=== PATIENT | male | born 1970 | race Caucasian/White ===

== ENCOUNTER 2016-08-08 16:25 | Observation (INO) | payer OTHER ==
[2016-08-08] MEDS ORDERED: SODIUM CHLORIDE 0.9% 1,000 ML IV STA (17:56)
[2016-08-08 18:09] LABS: Basophils # (A) 0.1 k/uL (0-0.2); Basophils % (A) 1 %; CH 30.9; Eosinophils # (A) 0.2 k/uL (0-0.7); Eosinophils % (A) 2 %; HGB 16.4 gm/dL (13.0-17.5); Luc % (Auto) 3; Lymphocytes % (A) 33 %; MCH 30.5 pg (25.0-35.0); MCHC 33.4 g/dL (31.0-37.0); MCV 91.3 fL (80.0-100.0); Monocytes # (A) 0.5 k/uL (0-1.0); Monocytes % (A) 6 %; Neutrophils # (A) 5.1 k/uL (1.3-7.7); Neutrophils % (A) 56 %; RBC 5.36 m/uL (4.30-5.90); RDW 14.1 % (11.5-15.5); WBC 9.2 k/uL (3.8-10.6); WBC (Perox) 9.39
[2016-08-08] MEDS ORDERED: PANTOPRAZOLE 40 MG/10 ML VIAL IVP STA (18:16)
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
[2016-08-08 18:21] LABS: INR 0.9 (<1.1); Partial Thromboplastin Time 25.9 sec (22.0-30.0); Prothrombin Time 9.7 sec (9.0-12.0)
[2016-08-08 18:22] LABS: ALT 45 U/L (21-72); AST 21 U/L (17-59); Alkaline Phosphatase 69 U/L (38-126); Anion Gap 8 mmol/L; Blood Urea Nitrogen 17 mg/dL (9-20); Calcium 9.6 mg/dL (8.4-10.2); Carbon Dioxide 28 mmol/L (22-30); Chloride 104 mmol/L (98-107); Glucose 108 mg/dL (74-99); Non-African American GFR(MDRD) >60 (>60 ml/min/1.73 sqM); Potassium 4.3 mmol/L (3.5-5.1); Sodium 140 mmol/L (137-145); Total Bilirubin 0.4 mg/dL (0.2-1.3); Total Protein 8.2 g/dL (6.3-8.2)
[2016-08-08] MEDS ORDERED: ONDANSETRON 4 MG/2 ML VIAL IVP STA (18:31)
[2016-08-08] MEDS ORDERED: SODIUM CHLORIDE 0.9% 500 ML IV STA (18:31)
[2016-08-08] MEDS ORDERED: RX INFO: IV CONTRAST WAS GIVEN 1 EACH MISC MISCELLANE PRN (19:05)
[2016-08-08] MEDS ORDERED: IOHEXOL 350 MG/ML 25 ML BOTTLE (ORAL USE) PO PRN (19:05)
[2016-08-08] MEDS ORDERED: ACETAMINOPHEN TAB 325 MG TAB PO PRN (19:06)
[2016-08-08] MEDS ORDERED: SODIUM CHLORIDE 0.9% 1,000 ML IV ONE (19:06)
[2016-08-08] MEDS ORDERED: NALOXONE 0.4 MG/ML 1 ML VIAL IV PRN (19:06)
[2016-08-08] MEDS: HYDROmorphone 1 MG/ML 1 ML SYRINGE IV PRN ×2 (19:33→22:05)
[2016-08-08] MEDS: ONDANSETRON 4 MG/2 ML VIAL IVP PRN (19:33)
[2016-08-08] MEDS: levETIRAcetam 500 MG TAB PO SCH (22:04)
--- NOTE | 2016-08-08 22:23 | CT ---
EXAMINATION TYPE: CT abdomen pelvis w con DATE OF EXAM: 08/08/2016 9:11 PM COMPARISON: CT abdomen and pelvis dated 06/06/2016. HISTORY: Pt states of left-sided abdominal pain, nausea, and vomiting. CT DLP: 589.9 mGycm Automated exposure control for dose reduction was used. TECHNIQUE: Helical acquisition of images was performed from the lung bases through the pelvis. CONTRAST: Performed with Oral Contrast and with IV Contrast, patient injected with 100 mL of Omnipaque 300. FINDINGS: LUNG BASES: Right basilar subsegmental dependent atelectasis. LIVER/GB: No significant abnormality is appreciated. Gallbladder is contracted. PANCREAS: No significant abnormality is seen. SPLEEN: No significant abnormality is seen. ADRENALS: No significant abnormality is seen. KIDNEYS: There are 2 unchanged left lower pole nonobstructing renal calculi with the largest measurin g 17 mm. For punctate nonobstructing right renal calculi are seen the largest measuring 4 mm in the r ight lower pole. There is no evidence of hydronephrosis. Punctate calcification is again seen along t he penile urethra but unchanged from the exam of 06/06/2016. No urinary bladder calculi are present. No hydroureter. No perinephric fat stranding. RETROPERITONEAL ADENOPATHY: None visualized REPRODUCTIVE ORGANS: Prostate is again heterogenous and prominent in size measuring 4.7 cm in transve rse dimension. URINARY BLADDER: No significant abnormality is seen. PELVIC ADENOPATHY: Few prominent right lower quadrant lymph nodes are appreciated, which are nonspec ific. OSSEOUS STRUCTURES: No evidence of fracture or dislocation. Transitional-type vertebra at the lumbos acral junction is redemonstrated. BOWEL: Numerous sigmoid diverticula are seen with subtle and minimal pericolonic fat stranding and v asa recta engorgement within the low pelvis and comparison to the prior exam on series 3 image 70. Ad ditionally along the splenic flexure there is increase in size of an epiploic appendage on image 19 o f series 3 adjacent to the most inferior margin of the spleen. No surrounding inflammatory changes ar e seen of this epiploic appendage. OTHER: IMPRESSION: 1. NO EVIDENCE OF OBSTRUCTIVE UROPATHY. 2. MILD PERICOLONIC INFLAMMATORY CHANGES OF THE SIGMOID COLON WITH ENGORGEMENT OF THE VASA RECTA, LIK FRITZ RELATED TO EARLY UNCOMPLICATED SEGMENT DIVERTICULITIS IN THE SETTING OF LEFT LOWER QUADRANT ABDOM INAL PAIN, NAUSEA, VOMITING. NO ADJACENT ABSCESS OR EVIDENCE OF PERFORATION. 3. UNCHANGED MULTIPLE BILATERAL NONOBSTRUCTING RENAL CALCULI THE LARGEST ON THE LEFT MEASURING 17 MM AND THE LARGEST ON THE RIGHT MEASURING 4 MM.
--- NOTE | 2016-08-08 22:23 | XR ---
EXAMINATION TYPE: XR KUB DATE OF EXAM: 08/08/2016 6:37 PM COMPARISON: NONE HISTORY: Rectal bleeding and abdominal pain. TECHNIQUE: Upright and supine abdominal radiographs were obtained. FINDINGS: There is no evidence of pneumoperitoneum. Similar appearing bilateral renal calculi are see n, 2 on the left and one on the right measuring up to 12 mm on the left. There is a nonobstructive mazin wel gas pattern. Osseous structures are intact. No evidence of visceromegaly. IMPRESSION: 1. Nonobstructive bowel gas pattern. 2. Similar appearing bilateral renal calculi, 2 on the left and one on the right.
[2016-08-08 23:05] LABS: Appearance,Urine Clear (Clear); Bilirubin,Urine Negative (Negative); Glucose,Urine (UA) Negative (Negative); Ketones,Urine Negative (Negative); Leukocyte Esterase,Urine Negative (Negative); Mucus,Urine Rare /hpf; Nitrite,Urine Negative (Negative); PH, Urine 6.5 (5.0-8.0); Particle Count 467; Protein,Urine Negative (Negative); RBC,Urine 8 /hpf (0-5); Specific Gravity,Urine 1.035 (1.001-1.035); Squamous Epithelial Cell,Urine <1 /hpf (0-4); UA Billing (MACRO vs. MICRO) MICRO; Urobilinogen,Urine <2.0 mg/dL (<2.0); WBC,Urine 1 /hpf (0-5)
[2016-08-09] MEDS: HYDROmorphone 1 MG/ML 1 ML SYRINGE IV PRN ×6 (02:13→20:06)
[2016-08-09] MEDS ORDERED: PANTOPRAZOLE 40 MG/10 ML VIAL IVP SCH (09:00)
[2016-08-09] MEDS: ATORVASTATIN 20 MG TAB PO SCH (09:10)
[2016-08-09] MEDS: PANTOPRAZOLE 40 MG/10 ML VIAL IV SCH (09:10)
[2016-08-09] MEDS: levETIRAcetam 500 MG TAB PO SCH ×2 (09:10→21:26)
[2016-08-09 10:22] LABS: Basophils # (A) 0.1 k/uL (0-0.2); Basophils % (A) 1 %; CH 30.6; CHCM 33.2; Eosinophils # (A) 0.2 k/uL (0-0.7); Eosinophils % (A) 2 %; HCT 45.5 % (39.0-53.0); HGB 14.7 gm/dL (13.0-17.5); Luc # (Auto) 0.26; Luc % (Auto) 3; Lymphocytes # (A) 2.3 k/uL (1.0-4.8); Lymphocytes % (A) 27 %; MCH 29.8 pg (25.0-35.0); MCHC 32.2 g/dL (31.0-37.0); MCV 92.7 fL (80.0-100.0); Mean Platelet Volume 6.3; Monocytes # (A) 0.5 k/uL (0-1.0); Monocytes % (A) 6 %; Neutrophils # (A) 5.1 k/uL (1.3-7.7); Neutrophils % (A) 61 %; RBC 4.91 m/uL (4.30-5.90); RDW 14.2 % (11.5-15.5); WBC 8.3 k/uL (3.8-10.6); WBC (Perox) 9.06
[2016-08-09 10:48] LABS: ALT 31 U/L (21-72); AST 18 U/L (17-59); Alkaline Phosphatase 63 U/L (38-126); Anion Gap 8 mmol/L; Blood Urea Nitrogen 14 mg/dL (9-20); Calcium 8.9 mg/dL (8.4-10.2); Carbon Dioxide 23 mmol/L (22-30); Chloride 108 mmol/L (98-107); Glucose 81 mg/dL (74-99); Non-African American GFR(MDRD) >60 (>60 ml/min/1.73 sqM); Potassium 4.6 mmol/L (3.5-5.1); Sodium 139 mmol/L (137-145); Total Bilirubin 0.6 mg/dL (0.2-1.3)
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
[2016-08-09] MEDS ORDERED: BUTA/APAP/CAF/COD 50-325-40-30 CAP PO PRN (11:11)
[2016-08-09] MEDS ORDERED: BACLOFEN 10 MG TAB PO PRN (11:11)
[2016-08-09] MEDS ORDERED: IMITREX PO PRN (11:11)
[2016-08-09] MEDS: VERAPAMIL SR 120 MG TABLET.ER PO SCH (12:37)
[2016-08-09] MEDS: LOSARTAN 25 MG TAB PO SCH (12:37)
[2016-08-09] MEDS: traMADol 50 MG TAB PO PRN (12:42)
[2016-08-09] MEDS: oxyCODONE-APAP 7.5-325MG 1 EACH TAB PO PRN ×2 (12:42→21:26)
[2016-08-09] MEDS ORDERED: PEG 3350-NA SULF,BICARB,CL/KCL 4,000 ML BOTTLE PO ONE (15:00)
--- NOTE | 2016-08-09 19:32 | HP ---
DATE OF ADMISSION: 08/08/2016 DATE OF SERVICE: 08/09/2016 CHIEF COMPLAINT: Rectal bleeding. This is a 46-year-old white male who started having rectal bleeding for the past 8 to 10 days. Patient was having persistent bleeding and this was red and dark red in color. He denied any nausea or vomiting or hematemesis. Patient was brought to the emergency room, where he was evaluated extensively. Patient also had no nausea or abdominal pain. In the ER his CBC showed a WBC count of 9.2, hemoglobin 16.4 and platelet count 322,000. Sodium 140, potassium 4.3, BUN 17, creatinine 1.16. Blood sugar 108. The patient also had a CT of the abdomen which showed evidence of diverticulosis. Patient was admitted to the hospital for further evaluation and treatment. His past medical history reveals that the patient has a history of recurrent CVA with left hemiparesis. He also has a history of seizure disorder, gastroesophageal reflux disease, migraine headaches and BPH. He has NO KNOWN DRUG ALLERGIES. He used to smoke heavily. FAMILY HISTORY: Positive for arthritis and stroke. Patient's current medications include: 1. Cozaar 25 mg p.o. daily. 2. Verapamil 120 mg p.o. daily. 3. Aspirin 81 mg daily. 4. [place] 7.5/325 one q.8 hours p.r.n. 5. Keppra 1000 mg p.o. b.i.d. 6. Flomax 0.4 mg p.o. daily. 7. Plavix 75 mg p.o. daily. 8. Fioricet 1 daily p.r.n. 9. Baclofen 10 mg p.o. b.i.d. p.r.n. 10. Lipitor 20 mg p.o. daily. 11. Ultram 50 mg p.o. q.8 hours p.r.n. REVIEW OF SYSTEMS: Patient has migraine headaches. He denies any chest pain. He has no shortness of breath. He has no abdominal pain, but he has rectal bleeding. He has no polyuria or dysuria. He has no neurologic symptoms. Physical examination reveals a 46-year-old white male. He has left hemiparesis. He is alert and oriented. He is in no acute distress. There is no jaundice. There is no generalized lymphadenopathy. There are no petechiae or bruises. Pulse 80 per minute, regular. Blood pressure 147/86. EXAMINATION OF THE ENT: Negative. Neck is supple. There is no jugular venous distention. There is no goiter. There is no carotid bruit. Heart is in sinus rhythm. LUNGS: Diminished breath sounds at both bases. No rales or rhonchi. ABDOMEN: Soft, non-tender. No mass palpable. Examination of the lower extremities reveals no pitting edema. Neurological examination reveals left hemiparesis. IMPRESSION: 1. Gastrointestinal bleeding. 2. Hypertensive cardiovascular disease. 3. 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 4. Hypertensive cardiovascular disease. 5. History of nephrolithiasis. 6. Migraine headaches. PLAN: Patient will be admitted to hospital and we will place him back on his previous medications. We will monitor hemoglobin and hematocrit. Will also get a GI consultation. Dr. Ayala has scheduled him for upper and lower endoscopy tomorrow. Overall prognosis guarded. The diagnoses, prognosis and therapeutic plans were discussed in detail with the patient today.
[2016-08-09] MEDS: BUTA/APAP/CAF/COD 50-325-40-30 CAP PO PRN (21:26)
[2016-08-09] MEDS: TAMSULOSIN 0.4 MG CAP.ER.24H PO SCH (21:26)
[2016-08-10] MEDS: HYDROmorphone 1 MG/ML 1 ML SYRINGE IV PRN ×3 (00:44→23:10)
[2016-08-10] MEDS: ATORVASTATIN 20 MG TAB PO SCH (09:00)
[2016-08-10] MEDS: BUTA/APAP/CAF/COD 50-325-40-30 CAP PO PRN ×2 (10:42→19:06)
[2016-08-10] MEDS: levETIRAcetam 500 MG TAB PO SCH ×2 (10:42→21:59)
[2016-08-10] MEDS: PANTOPRAZOLE 40 MG/10 ML VIAL IV SCH (10:42)
[2016-08-10] MEDS: LOSARTAN 25 MG TAB PO SCH (10:42)
[2016-08-10] MEDS: oxyCODONE-APAP 7.5-325MG 1 EACH TAB PO PRN ×2 (10:43→19:06)
[2016-08-10] MEDS: VERAPAMIL SR 120 MG TABLET.ER PO SCH (10:43)
[2016-08-10] MEDS ORDERED: PROPOFOL 10 MG/ML 20 ML VIAL IV ONE (12:46)
[2016-08-10] MEDS ORDERED: IV FLUID CONTINUATION 950 ML IV ONE (12:52)
--- NOTE | 2016-08-10 13:12 | P.PCN ---
Date of Procedure: 08/10/16 Procedure(s) Performed: Brief history: Patient is a pleasant 46-year-old white male, scheduled for an elective upper endoscopy as well as colonoscopy as a part of evaluation of with the lower GI bleed. Patient has history of CVA in the past and has been on aspirin and Plavix which has been on hold. His hemoglobin is stable. Procedure performed: Esophagogastroduodenoscopy Colonoscopy Preoperative diagnosis: Acute GI bleed Anesthesia: MAC Procedure: After informed consent was obtained from the patient was brought into the endoscopy unit and IV conscious sedation was administered by anesthesia under continuous monitoring. Initially upper endoscopy was done. The Olympus GF 160 video endoscope was inserted inserted into the mouth and esophagus intubated without any difficulty and was gradually advanced into the stomach and duodenum and carefully examined. The bulb and second part of the duodenum appeared normal. The scope was then withdrawn into the stomach adequately insufflated with air and upon careful examination the antrum and body, cardia and fundus appeared normal. The scope was then withdrawn into the esophagus. The GE junction was located at 40 cm to the incisors. It appeared regular with no erythema erosions or ulcerations. Rest of the esophagus appeared normal. Patient tolerated the procedure well. At this time the patient continued to remain sedation. Initial digital rectal examination was normal. Olympus CF 160 video colonoscope was then inserted into the rectum and gradually advanced to the cecum without any difficulty. Careful examination was performed as the scope was gradually being withdrawn. The prep was excellent. The cecum, ascending colon, transverse colon, descending colon, sigmoid colon and rectum appeared normal. Scattered similar diverticulosis seen. Retroflexion was performed in the rectum and small internal hemorrhoids were noted. Patient tolerated the procedure well. Impression: 1. Upper endoscopy was within normal limits with no evidence of active upper GI bleed 2. Colonoscopy revealed scattered small diverticula cyst and small internal hemorrhoids but no active bleeding Recommendations: Findings of this examination were discussed with the patient as well as his family. It appears most likely her recent episode of lower GI bleed is from diverticular in nature which has spontaneously resolved. He'll be started on soft diet today
[2016-08-10 14:46] VITALS: RESP 20
[2016-08-10] MEDS: traMADol 50 MG TAB PO PRN (14:50)
--- NOTE | 2016-08-10 19:15 | PN ---
DATE OF SERVICE: 08/10/2016 This is a 46-year-old white male who was admitted through the emergency room with complaints of rectal bleeding. He had rectal bleeding for about a week. In the emergency room his CBC and hemoglobin were within normal limits. Patient was seen by Dr. Divina Ayala, and she scheduled him for upper and lower endoscopy. He had the endoscopies this morning. Apparently the upper endoscopy was normal. The lower endoscopy revealed some diverticulosis and apparently the bleeding might have been from the diverticulosis and also from internal hemorrhoids. Apparently the bleeding was spontaneously stopped and there was no evidence of any infection. Patient tolerated the procedure well. His vital signs were stable after the endoscopy. Dr. Ayala recommended to have him start on a soft diet. If the patient continues to be improve and is stable, he could be discharged home tomorrow.
[2016-08-10] MEDS ORDERED: INFLUENZA VACCINE (3YR+) 60 MCG/0.5 ML SYRINGE IM ONE (21:32)
[2016-08-10] MEDS: TAMSULOSIN 0.4 MG CAP.ER.24H PO SCH (21:59)
[2016-08-10 23:10] LABS: Glucose,Whole Blood 117 mg/dL (75-99)
[2016-08-10] MEDS: ONDANSETRON 4 MG/2 ML VIAL IVP PRN (23:11)
[2016-08-11] MEDS: BUTA/APAP/CAF/COD 50-325-40-30 CAP PO PRN (02:50)
[2016-08-11] MEDS: oxyCODONE-APAP 7.5-325MG 1 EACH TAB PO PRN ×2 (02:51→11:03)
[2016-08-11] MEDS: HYDROmorphone 1 MG/ML 1 ML SYRINGE IV PRN ×2 (04:59→08:12)
[2016-08-11 07:48] VITALS: BP 125/79; PULSE 63; TEMP 97
[2016-08-11] MEDS: levETIRAcetam 500 MG TAB PO SCH (08:03)
[2016-08-11] MEDS: VERAPAMIL SR 120 MG TABLET.ER PO SCH (08:03)
[2016-08-11] MEDS: LOSARTAN 25 MG TAB PO SCH (08:03)
[2016-08-11] MEDS: PANTOPRAZOLE 40 MG/10 ML VIAL IV SCH (08:04)
[2016-08-11] MEDS: ATORVASTATIN 20 MG TAB PO SCH (08:04)
[2016-08-11] MEDS: traMADol 50 MG TAB PO PRN (11:02)
--- NOTE | 2016-08-11 11:53 | P.PN ---
Subjective Principal diagnosis: Lower GI bleed 46-year-old male with a history diverticulosis admitted with lower GI bleed on dual antiplatelet therapy for history of CVA. Status post EGD colonoscopy yesterday with findings of diverticulosis without evidence of peptic ulcer disease. Feels well this morning. Tolerating liquid diet. No recurrence of bleeding. Objective - Vital Signs Vital signs: Vital Signs Temp 97.0 F L 08/11/16 07:00 Pulse 63 08/11/16 07:00 Resp 20 08/11/16 08:00 BP 125/79 08/11/16 07:00 Pulse Ox 98 08/11/16 07:00 Intake & Output 08/10/16 08/11/16 08/11/16 18:59 06:59 18:59 Intake Total 950 800 480 Balance 950 800 480 Intake: IV 150 Intake, IV Titration 800 Amount Sodium Chloride 0.9% 1, 800 000 ml @ 100 mls/hr IV . Q10H ONE Rx#:[id number] Oral 800 480 Other: # Voids 1 - Exam General appearance: The patient is alert, oriented, in no acute distress. HET: Head is normocephalic and atraumatic. Pupils are equal and reactive. Oropharynx is clear without lesions. Neck: Supple without lymphadenopathy. Trachea midline. Heart: S1 S2. Regular rate and rhythm. Lungs: No crackles or wheezes are heard. Abdomen: Soft, nontender, nondistended with bowel sounds. No peritoneal signs. No palpable organomegaly or masses. Extremities: Normal skin color and turgor. No cyanosis, rash, ulceration, clubbing, or edema. Radial and pedal pulses are 2/4 bilaterally. Neurological: No focal deficits. Strength and sensation are grossly intact. - Labs CBC & Chem 7: 08/09/16 09:50 08/09/16 09:50 Labs: Abnormal Lab Results - Last 24 Hours (Table) 08/10/16 Range/Units 23:04 POC Glucose (mg/dL) 117 H (75-99) mg/dL Assessment and Plan (1) GI bleed Narrative/Plan: 46-year-old male with a history of CVA on dual antiplatelet therapy admitted with painless maroon colored burgundy bowel movements for 10 days duration with radiographic abdominal imaging suggestive of numerous sigmoid diverticula possible early sigmoid diverticular colitis. Status post EGD with findings of diverticulosis without evidence of peptic ulcer disease. Lower GI bleed secondary to suspected diverticular bleed. Status: Acute Plan: Recommendations: 1. Restart aspirin Plavix per medicine. 2. Soft diet. 3. Discharge per medicine. We'll follow as needed. Assessment and plan of care discussed with Dr. Jacob
--- NOTE | 2016-09-11 09:06 | DS ---
DATE OF ADMISSION: 08/08/2016 DATE OF DISCHARGE: 08/11/2016 DISCHARGE DIAGNOSES: 1. Gastrointestinal bleeding possibly bleeding from diverticulosis or colon or internal hemorrhoid. 2. Hypertensive cardiovascular disease. 3. 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 4. Hypertensive cardiovascular disease. 5. History of nephrolithiasis. 6. Migraine headaches. This is a 46-year-old white male who started having rectal bleeding for the past 8 to 10 days. The patient was having persistent bleeding and this was red blood and also has some dark red blood in the stool. He denied any nausea, vomiting or hematemesis. In the emergency room, his CBC showed a WBC count of 9.2, hemoglobin 16.4, and platelet count 302,000. Sodium 140, potassium 4.3, BUN 17, creatinine 1.16. Blood sugar 108. The patient also had a CT scan of the abdomen which showed evidence of diverticulosis. The patient was admitted to the hospital for further evaluation and treatment. For details of the physical examination at the time of admission, please refer to the history and physical. HOSPITAL COURSE: Patient's CBC and electrolytes were monitored and patient was seen by Dr. Ayala in consultation. Patient had an upper endoscopy and also lower endoscopy and it there was no active bleeding, but the bleeding might have been from diverticular or hemorrhoid bleeding and the bleeding apparently has stopped. His hemoglobin remains stable. He became asymptomatic and the patient was discharged home on 08/11/2016 and patient was advised to continue on his previous medications and diet as tolerated. He will be followed by me in my office for medical follow-up in a week's time and he will also be followed by Dr. Ayala for his gastrointestinal problems.
== END 2016-08-11 14:02 | disposition home or self-care (01) ==
LOC: EC 16:25 → 4MS4W 19:06
PROVIDERS: ADMIT Internal Medicine; ATTEND Internal Medicine
DX: K92.2 Gastrointestinal hemorrhage, unspecified (principal); K64.8 Other hemorrhoids; R10.32 Left lower quadrant pain; E78.5 Hyperlipidemia, unspecified; G40.909 Epilepsy, unspecified, not intractable, without status epilepticus; G43.909 Migraine, unspecified, not intractable, without status migrainosus; I11.9 Hypertensive heart disease without heart failure; I69.354 Hemiplegia and hemiparesis following cerebral infarction affecting left non-dominant side; K21.9 Gastro-esophageal reflux disease without esophagitis; K57.90 Diverticulosis of intestine, part unspecified, without perforation or abscess without bleeding; N40.0 Benign prostatic hyperplasia without lower urinary tract symptoms; Z79.82 Long term (current) use of aspirin; Z87.442 Personal history of urinary calculi; Z87.891 Personal history of nicotine dependence; Z79.899 Other long term (current) drug therapy; Z79.02 Long term (current) use of antithrombotics/antiplatelets; Z90.81 Acquired absence of spleen
CPT/HCPCS: 99285 ×2; 96374 ×2; 96375 ×3; 96376 ×2; 96361 ×3; 36415; 80053 ×2; 85025 ×2; 85610; 85730; 82272; 81001; 74000; 74177; 45378; 43235; G0378 ×4; J2405 ×2; J1170 ×4; Q9967; J2704; C9113 ×4; 99153

== ENCOUNTER → 2016-10-28 | Outpatient (CLI) | payer OTHER ==
--- NOTE | 2016-10-28 08:15 | MR ---
EXAMINATION TYPE: MR lumbar spine wo con DATE OF EXAM: 10/28/2016 7:03 AM COMPARISON: Prior MRI lumbar spine May 26, 2015. HISTORY: lumbago per order. Severe low back pain into right leg for 1 month per patient. TECHNIQUE: Multiplanar, multisequence imaging of the lumbar spine is performed without IV contrast. FINDINGS: Will use same counting method as detailed on prior report. Sagittal images of the lumbar sp ine show vertebral body heights and alignment to appear satisfactory. There is redemonstration of dis c desiccation L5 L6 level and to lesser degree L6-S1 level. This space heights are fairly well-mainta ined. No large posterior disc herniations are seen on sagittal images. No significant change from tara or study is identified. The conus medullaris remains low in position ending at mid L2 vertebral body level. No suspicious signal or clumping of lumbosacral nerve roots is identified. The bone marrow s ignal intensity is within normal limits. Mild spurring near thoracolumbar junction is redemonstrated. Axial images beginning at the L1-L2 level redemonstrate mild broad disc bulge mildly effacing anterio r thecal sac, bilateral neural foramina are patent. There is similar stable mild broad disc bulge L2- L3 level mildly effacing anterior thecal sac, bilateral neural foramina remain patent. Axial images at the L3-L4 and L4-L5 levels show mild facet degenerative changes bilaterally. There is mild to moderate broad disc bulges mildly effacing the anterior thecal sac, there is persistent mild bilateral left greater than right anterior-inferior neural foraminal narrowing seen. Axial images at L5-L6 level show moderate facet degenerative changes bilaterally. There is redemonstr ation mild broad disc bulge with right lateral disc protrusion component. There is mild effacement of the anterior thecal sac. There is fairly moderate left-sided neural foraminal narrowing now seen on sagittal image 1. There is moderate to severe right-sided neural foraminal narrowing with encroachmen t along right L5 nerve seen on sagittal image 12. Axial images at L6 S1 level are felt within normal limits. IMPRESSION: Some multilevel degenerative changes in lumbar spine as detailed above, findings once aga in most prominent at labeled L5 L6 level as there is moderate to severe right greater than left neura l foraminal narrowing with suspected encroachment on the labeled right L6 nerve. Some progression in findings or neural foraminal narrowing on the left at this level is identified otherwise no significa nt change is seen from prior MRI.
== END ==
LOC: RADMRIMAIN 06:20
PROVIDERS: ATTEND Psychiatry & Neurology Neurology
DX: M99.73 Connective tissue and disc stenosis of intervertebral foramina of lumbar region (principal); M47.816 Spondylosis without myelopathy or radiculopathy, lumbar region
CPT/HCPCS: 72148

== ENCOUNTER 2016-11-20 11:41 | Emergency (ER) | payer OTHER ==
[2016-11-20] MEDS ORDERED: RX INFO: IV CONTRAST WAS GIVEN 1 EACH MISC MISCELLANE PRN (12:04)
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
[2016-11-20 12:19] LABS: Basophils # (A) 0.1 k/uL (0-0.2); Basophils % (A) 1 %; CH 31.5; CHCM 34.8; Eosinophils # (A) 0.1 k/uL (0-0.7); Eosinophils % (A) 1 %; HCT 46.5 % (39.0-53.0); HDW 2.51; HGB 15.8 gm/dL (13.0-17.5); Luc # (Auto) 0.32; Luc % (Auto) 3; Lymphocytes % (A) 29 %; MCHC 34.1 g/dL (31.0-37.0); MCV 90.9 fL (80.0-100.0); Mean Platelet Volume 6.3; Monocytes # (A) 0.7 k/uL (0-1.0); Monocytes % (A) 7 %; Neutrophils % (A) 59 %; RBC 5.11 m/uL (4.30-5.90); RDW 14.5 % (11.5-15.5); WBC 10.3 k/uL (3.8-10.6)
--- NOTE | 2016-11-20 12:24 | CT ---
EXAMINATION TYPE: CT brain wo con for TPA DATE OF EXAM: 11/20/2016 12:16 PM COMPARISON: 12/13/2015 HISTORY: cva, seizure CT DLP: 1108.4 mGycm Automated exposure control for dose reduction was used. FINDINGS: Ventricles have normal size. There is no mass effect nor midline shift. There is no sign of intracran ial hemorrhage. The calvarium is intact. IMPRESSION: Negative unenhanced head CT scan. No change.
[2016-11-20 12:29] LABS: ALT 32 U/L (21-72); AST 23 U/L (17-59); Alkaline Phosphatase 73 U/L (38-126); Anion Gap 13 mmol/L; Blood Urea Nitrogen 13 mg/dL (9-20); Calcium 10.2 mg/dL (8.4-10.2); Carbon Dioxide 23 mmol/L (22-30); Chloride 107 mmol/L (98-107); Glucose 116 mg/dL (74-99); Non-African American GFR(MDRD) >60 (>60 ml/min/1.73 sqM); Potassium 3.6 mmol/L (3.5-5.1); Sodium 143 mmol/L (137-145); Total Bilirubin 0.6 mg/dL (0.2-1.3); Total Protein 8.3 g/dL (6.3-8.2)
[2016-11-20] MEDS ORDERED: SODIUM CHLORIDE 0.9% 500 ML IV STA (12:30)
[2016-11-20] MEDS ORDERED: MORPHINE SULFATE 4 MG/ML SYRINGE IVP STA (12:30)
[2016-11-20] MEDS ORDERED: SODIUM CHLORIDE 0.9% 1,000 ML IV STA (12:30)
[2016-11-20 12:31] LABS: Prothrombin Time 10.1 sec (9.0-12.0)
[2016-11-20 12:39] LABS: Creatine Kinase 102 U/L (55-170)
[2016-11-20] MEDS ORDERED: tPA (Alteplase) PER PHARMACY 1 EACH MISC MISCELLANE PRN (12:43)
[2016-11-20] MEDS ORDERED: ALTEPLASE BOLUS IV STA (12:45)
[2016-11-20] MEDS ORDERED: ALTEPLASE 75 MG in EMPTY BAG 1 BAG IV STA (12:45)
[2016-11-20 12:46] LABS: Glucose,Whole Blood 145 mg/dL (75-99)
[2016-11-20 12:52] LABS: Creatine Kinase MB 1.8 ng/mL (0.0-2.4); Troponin I <0.012 ng/mL (0.000-0.034)
--- NOTE | 2016-11-20 13:14 | CT ---
EXAMINATION TYPE: CT angio head neck DATE OF EXAM: 11/20/2016 12:47 PM COMPARISON: NONE HISTORY: CVA CT DLP: 374.30 mGycm Automated exposure control for dose reduction was used. CONTRAST: Performed with IV Contrast, patient injected with 65 mL of Omnipaque 350. FINDINGS: There are 3-D post processed images. There is normal branching pattern of the great vessels. There is wide patency of the common internal and external carotid arteries bilaterally. There is patency of the vertebrobasilar artery system. There is arterial flow in the anterior middle and posterior cerebral arteries. There is no mass effect. There is no evidence of aneurysm or neovasc ularity. There is bilateral normal opacification of the vertebral arteries. I see no evidence of stenosis. The re is no evidence of dissection. There is normal contrast opacification of the venous sinuses. IMPRESSION: NORMAL CT ANGIOGRAM OF THE NECK. NORMAL CT ANGIOGRAM OF THE BRAIN.
[2016-11-20] MEDS ORDERED: HYDROmorphone 1 MG/ML 1 ML SYRINGE IVP STA (13:21)
[2016-11-20 13:41] VITALS: RESP 16
[2016-11-20 13:45] VITALS: BP 155/95; PULSE 85; TEMP 98.3
== END 2016-11-20 13:30 | disposition other institution (70) ==
LOC: EC 11:41
DX: I63.9 Cerebral infarction, unspecified (principal); I10 Essential (primary) hypertension; E78.5 Hyperlipidemia, unspecified; G40.909 Epilepsy, unspecified, not intractable, without status epilepticus; F41.9 Anxiety disorder, unspecified; Z87.891 Personal history of nicotine dependence; Z79.82 Long term (current) use of aspirin; Z79.01 Long term (current) use of anticoagulants; Z79.899 Other long term (current) drug therapy
CPT/HCPCS: 99291; 37195; 96374; 96375 ×2; 96361; 36415; 93005; 80053; 82550; 82553; 83735; 84484; 85025; 85610; 85730; 70496; 70450; 70498; J2997; J2270; Q9967; J1170

== ENCOUNTER 2017-02-13 16:16 | Emergency (ER) | payer OTHER ==
[2017-02-13] MEDS ORDERED: KETOROLAC 30 MG/ML 1 ML VIAL IVP STA (17:06)
[2017-02-13] MEDS ORDERED: HYDROmorphone 1 MG/ML 1 ML SYRINGE IVP STA ×2 (17:06→19:38)
[2017-02-13] MEDS ORDERED: SODIUM CHLORIDE 0.9% 1,000 ML IV STA (17:06)
[2017-02-13] MEDS ORDERED: ONDANSETRON 4 MG/2 ML VIAL IVP STA (17:07)
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
[2017-02-13 17:46] LABS: Basophils # (A) 0.1 k/uL (0-0.2); Basophils % (A) 1 %; CH 31.8; CHCM 34.5; Eosinophils # (A) 0.3 k/uL (0-0.7); Eosinophils % (A) 3 %; HCT 47.8 % (39.0-53.0); HDW 2.67; HGB 15.8 gm/dL (13.0-17.5); Luc # (Auto) 0.28; Luc % (Auto) 3; Lymphocytes # (A) 3.6 k/uL (1.0-4.8); Lymphocytes % (A) 36 %; MCH 30.7 pg (25.0-35.0); MCHC 33.1 g/dL (31.0-37.0); MCV 92.7 fL (80.0-100.0); Mean Platelet Volume 7.2; Monocytes # (A) 0.7 k/uL (0-1.0); Monocytes % (A) 7 %; Neutrophils # (A) 5.2 k/uL (1.3-7.7); Neutrophils % (A) 52 %; RBC 5.16 m/uL (4.30-5.90); RDW 14.8 % (11.5-15.5); WBC (Perox) 9.78
[2017-02-13 17:57] LABS: ALT 36 U/L (21-72); AST 20 U/L (17-59); Alkaline Phosphatase 54 U/L (38-126); Amylase 61 U/L (30-110); Anion Gap 11 mmol/L; Blood Urea Nitrogen 17 mg/dL (9-20); Calcium 9.9 mg/dL (8.4-10.2); Carbon Dioxide 22 mmol/L (22-30); Chloride 107 mmol/L (98-107); Glucose 90 mg/dL (74-99); Non-African American GFR(MDRD) >60 (>60 ml/min/1.73 sqM); Potassium 4.2 mmol/L (3.5-5.1); Sodium 140 mmol/L (137-145); Total Bilirubin 0.3 mg/dL (0.2-1.3); Total Protein 7.8 g/dL (6.3-8.2)
[2017-02-13] MEDS ORDERED: SODIUM CHLORIDE 0.9% 1,000 ML IV SCH (18:00)
--- NOTE | 2017-02-13 18:13 | CT ---
EXAMINATION TYPE: CT abdomen pelvis wo con DATE OF EXAM: 02/13/2017 COMPARISON: NONE HISTORY: Left flank pain, history of stones. CT DLP: 2041.00 mGycm Automated exposure control for dose reduction was used. TECHNIQUE: Helical acquisition of images was performed from the lung bases through the pelvis. FINDINGS: Evaluation of the solid and hollow viscera is limited secondary lack of intravenous and ora l contrast. LUNG BASES: A small amount of intrafissural fluid is seen on the right.. LIVER/GB: No significant abnormality is appreciated. PANCREAS: No significant abnormality is seen. SPLEEN: The spleen is rounded in morphology and may relate to splenosis from prior injury. ADRENALS: No significant abnormality is seen. KIDNEYS: There is bilateral nephrolithiasis. 5 nonobstructing renal calculi are seen on the right wit h the largest in the inferior pole measuring 4 mm. 3 nonobstructing left renal calculi are present wi th the largest also in the inferior pole measuring 1.5 cm. FREE AIR: No free air is visualized RETROPERITONEAL ADENOPATHY: None visualized REPRODUCTIVE ORGANS: Again the prostate gland is heterogenous and prominent in size. URINARY BLADDER: Urinary bladder hall are circumferentially thickened and may relate to incomplete distention. Correlate with urinalysis.. PELVIC ADENOPATHY: None visualized. OSSEOUS STRUCTURES: No significant abnormality is seen. Transitional-type vertebrae in the lumbosacr al junction is again seen. No evidence BOWEL: Sigmoid diverticulosis without pericolonic fat stranding is noted. No evidence of bowel thick ening or obstructive process. IMPRESSION: BILATERAL NONOBSTRUCTING RENAL CALCULI. CIRCUMFERENTIAL URINARY BLADDER WALL THICKENING MAY RELATE TO INCOMPLETE DISTENTION ALTHOUGH CORRELATION WITH URINALYSIS IS RECOMMENDED.
[2017-02-13 18:34] LABS: Appearance,Urine Clear (Clear); Bacteria,Urine Rare /hpf; Bilirubin,Urine Negative (Negative); Glucose,Urine (UA) Negative (Negative); Ketones,Urine Negative (Negative); Leukocyte Esterase,Urine Negative (Negative); Mucus,Urine Rare /hpf; Nitrite,Urine Negative (Negative); Particle Count 706; Protein,Urine Negative (Negative); RBC,Urine 9 /hpf (0-5); Specific Gravity,Urine 1.017 (1.001-1.035); UA Billing (MACRO vs. MICRO) MICRO; Urobilinogen,Urine <2.0 mg/dL (<2.0); WBC,Urine 1 /hpf (0-5)
[2017-02-13] MEDS ORDERED: DIAZEPAM 5 MG/ML 2 ML SYRINGE IVP STA (19:02)
[2017-02-13 19:04] VITALS: TEMP 97.8
[2017-02-13] MEDS ORDERED: LABETALOL 5 MG/ML VIAL MDV IVP STA (19:06)
--- NOTE | 2017-02-13 20:12 | US ---
EXAMINATION TYPE: US abdomen limited DATE OF EXAM: 02/13/2017 COMPARISON: CT abdomen pelvis dated 02/13/2017. CLINICAL HISTORY: Pain. Left sided pain x 1.5 weeks. History of kidney stones EXAM MEASUREMENTS: Spleen: unable to identify normal appearing spleen, round hypoechoic area noted within area of splee n = 5.3 x 4.6 x 5.2cm this corresponds to the CT finding of a rounded splenic morphology that may rel ate to splenosis from prior injury or may be congenital in nature. Left Kidney: dense echogenic areas (stones) noted, largest at lower pole = 1.4cm IMPRESSION: Nephrolithiasis of the left kidney, better demonstrated on the CT abdomen pelvis of the , with no evidence of hydronephrosis.
[2017-02-13] MEDS ORDERED: HYDROmorphone 1 MG/ML 1 ML SYRINGE IV PRN (21:17)
[2017-02-13] MEDS ORDERED: ONDANSETRON 4 MG/2 ML VIAL IVP PRN (21:17)
[2017-02-13] MEDS ORDERED: NALOXONE 0.4 MG/ML 1 ML VIAL IV PRN (21:17)
[2017-02-13] MEDS ORDERED: KETOROLAC 30 MG/ML 1 ML VIAL IVP PRN (21:17)
[2017-02-13] MEDS ORDERED: RX INFO: IV CONTRAST WAS GIVEN 1 EACH MISC MISCELLANE PRN (21:25)
[2017-02-13 21:58] VITALS: BP 163/115; PULSE 68; RESP 18
--- NOTE | 2017-02-13 22:48 | CT ---
EXAM: CT Abdomen and Pelvis With Intravenous Contrast CLINICAL HISTORY: Reason: Pain TECHNIQUE: Axial computed tomography images of the abdomen and pelvis with intravenous contrast. CTDI is 34.42 MGy and DLP is 1545 mGy-cm. This CT exam was performed using one or more of the following dose reduction techniques: automated exposure control, adjustment of the mA and/or kV according to patient size, and/or use of iterative reconstruction technique. Coronal and sagittal reconstructions are performed COMPARISON: Nonenhanced CT abdomen and pelvis from today FINDINGS: Lower thorax: No acute findings. ABDOMEN: Liver: Unremarkable. No mass. Gallbladder and bile ducts: Unremarkable. No calcified stones. No ductal dilation. Pancreas: Unremarkable. No mass. No ductal dilation. Spleen: Unremarkable. No splenomegaly. Adrenals: Unremarkable. No mass. Kidneys and ureters: Bilateral nonobstructing renal stones. The largest in the left kidney measures about 7 x 14 mm. The largest in the right kidney measures about 8 mm. Stomach and bowel: Unremarkable. No obstruction. No mucosal thickening. Appendix: Normal appendix PELVIS: Bladder: Urinary bladder is better distended with no significant wall thickening. Reproductive: Unremarkable as visualized. ABDOMEN and PELVIS: Intraperitoneal space: Unremarkable. No free air. No significant fluid collection. Bones/joints: No acute fracture. No dislocation. Soft tissues: Unremarkable. Vasculature: Unremarkable. No abdominal aortic aneurysm. Lymph nodes: Unremarkable. No enlarged lymph nodes. IMPRESSION: Bilateral nonobstructing renal stones
== END 2017-02-13 23:10 | disposition home or self-care (01) ==
LOC: EC 16:16
DX: N20.0 Calculus of kidney (principal); G40.909 Epilepsy, unspecified, not intractable, without status epilepticus; I10 Essential (primary) hypertension; E78.5 Hyperlipidemia, unspecified; Z86.73 Personal history of transient ischemic attack (TIA), and cerebral infarction without residual deficits; Z87.891 Personal history of nicotine dependence; Z79.01 Long term (current) use of anticoagulants; Z79.899 Other long term (current) drug therapy
CPT/HCPCS: 36415; 80053; 82150; 83690; 85025; 81001; 76705; 74176; 74177; 99284; 96374; 96375 ×3; 96376 ×2; 96361 ×5; J3360; J2405; J1885; J1170; Q9967

== ENCOUNTER → 2017-07-11 | Outpatient (CLI) | payer OTHER ==
--- NOTE | 2017-07-11 11:32 | XR ---
EXAMINATION TYPE: XR chest 2V DATE OF EXAM: 07/11/2017 COMPARISON: 10/30/2015 HISTORY: Chronic fatigue TECHNIQUE: Frontal and lateral views of the chest are obtained. FINDINGS: There is no focal air space opacity, pleural effusion, or pneumothorax seen. Cardiac loop recorder is incidentally noted. The cardiac silhouette size is within normal limits. The osseous st ructures are intact. Mild degenerative changes of the thoracic spine and acromioclavicular joints are seen. There is a possible 4 mm pulmonary nodule within the superior segment of the right lower lobe versus pulmonary vessel en face. IMPRESSION: 1. Possible right superior segment lower lobe pulmonary nodule versus pulmonary vessel en face. CT th orax is recommended for further evaluation. 2. No acute cardiopulmonary process.
[2017-07-11 11:45] LABS: HCT 47.8 % (39.0-53.0); HGB 15.5 gm/dL (13.0-17.5); MCH 30.3 pg (25.0-35.0); MCHC 32.3 g/dL (31.0-37.0); MCV 93.7 fL (80.0-100.0); Mean Platelet Volume 6.4; Platelet Count 401 k/uL (150-450); RDW 14.1 % (11.5-15.5); WBC 7.8 k/uL (3.8-10.6)
[2017-07-11 11:56] LABS: ALT 56 U/L (21-72); AST 26 U/L (17-59); Albumin 4.5 g/dL (3.5-5.0); Alkaline Phosphatase 73 U/L (38-126); Anion Gap 13 mmol/L; Blood Urea Nitrogen 18 mg/dL (9-20); Calcium 10.1 mg/dL (8.4-10.2); Carbon Dioxide 24 mmol/L (22-30); Chloride 107 mmol/L (98-107); Cholesterol 201 mg/dL (<200); Glucose 85 mg/dL (74-99); HDL Cholesterol 50 mg/dL (40-60); LDL Cholesterol,Calculated 116 mg/dL (0-99); Potassium 4.2 mmol/L (3.5-5.1); Sodium 144 mmol/L (137-145); Total Bilirubin 0.3 mg/dL (0.2-1.3); Total Protein 8.2 g/dL (6.3-8.2); Triglycerides 175 mg/dL (<150)
[2017-07-11 12:11] LABS: T4, Free (Free Thyroxine) 1.25 ng/dL (0.78-2.19)
== END | disposition home or self-care (01) ==
LOC: RADXRMAIN 11:07
PROVIDERS: ATTEND Internal Medicine
DX: R53.82 Chronic fatigue, unspecified (principal); G40.909 Epilepsy, unspecified, not intractable, without status epilepticus; E78.2 Mixed hyperlipidemia
CPT/HCPCS: 36415; 71046; 80053; 80061; 84439; 84443; 85027

== ENCOUNTER 2017-07-12 17:01 | Emergency (ER) | payer OTHER ==
[2017-07-12] MEDS ORDERED: METOCLOPRAMIDE 5 MG/ML 2 ML VIAL IVP STA (17:44)
[2017-07-12] MEDS ORDERED: SODIUM CHLORIDE 0.9% 500 ML IV ONE (17:44)
[2017-07-12] MEDS ORDERED: HYDROmorphone 1 MG/ML 1 ML SYRINGE IVP STA (17:45)
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
[2017-07-12 23:34] VITALS: BP 133/86; PULSE 76; RESP 18; TEMP 97.6
== END 2017-07-12 18:54 | disposition home or self-care (01) ==
LOC: EC 17:01
DX: G43.509 Persistent migraine aura without cerebral infarction, not intractable, without status migrainosus (principal); E78.5 Hyperlipidemia, unspecified; I10 Essential (primary) hypertension; G40.909 Epilepsy, unspecified, not intractable, without status epilepticus; F41.9 Anxiety disorder, unspecified; Z87.891 Personal history of nicotine dependence; Z86.73 Personal history of transient ischemic attack (TIA), and cerebral infarction without residual deficits; Z79.02 Long term (current) use of antithrombotics/antiplatelets; Z79.899 Other long term (current) drug therapy
CPT/HCPCS: 99284; 96374; 96375; J2765; J1170

== ENCOUNTER → 2017-07-24 | Outpatient (CLI) | payer OTHER ==
--- NOTE | 2017-07-24 15:03 | CT ---
EXAMINATION TYPE: CT chest w con DATE OF EXAM: 07/24/2017 COMPARISON: NONE HISTORY: Nodule found on cxr. CT DLP: 288.6 mGycm Automated exposure control for dose reduction was used. CONTRAST: CT scan of the chest is performed with IV Contrast, patient injected with 100 mL of Omnipaque 300. FINDINGS: LUNGS: Scattered areas of pleural-parenchymal scarring. No evidence for focal consolidation. No disti nct pulmonary nodule or mass. No pleural effusion. Healed left-sided rib fracture with exuberant call us formation noted. MEDIASTINUM: There are no greater than 1 cm hilar or mediastinal lymph nodes. No pericardial effusi on is seen. Thoracic aorta is of normal caliber. The heart is not enlarged. UPPER ABDOMEN: Probable postoperative change of the spleen. Correlate clinically. OTHER: No additional significant abnormality is seen. IMPRESSION: 1. No evidence for acute inflammatory process or concerning pulmonary nodule or mass.
== END | disposition home or self-care (01) ==
LOC: RADCTMAIN 14:29
PROVIDERS: ATTEND Internal Medicine
DX: R91.8 Other nonspecific abnormal finding of lung field (principal)
CPT/HCPCS: 71260; Q9967

== ENCOUNTER 2017-09-07 00:59 | Emergency (ER) | payer OTHER ==
[2017-09-07 01:11] VITALS: TEMP 97.2
[2017-09-07] MEDS ORDERED: KETOROLAC 30 MG/ML 1 ML VIAL IVP STA (01:37)
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
[2017-09-07 02:01] LABS: Basophils # (A) 0.1 k/uL (0-0.2); Basophils % (A) 1 %; Eosinophils # (A) 0.3 k/uL (0-0.7); Eosinophils % (A) 3 %; HCT 43.1 % (39.0-53.0); HGB 14.5 gm/dL (13.0-17.5); Lymphocytes # (A) 2.9 k/uL (1.0-4.8); Lymphocytes % (A) 29 %; MCH 30.2 pg (25.0-35.0); MCHC 33.6 g/dL (31.0-37.0); MCV 89.9 fL (80.0-100.0); Mean Platelet Volume 6.7; Monocytes # (A) 0.8 k/uL (0-1.0); Monocytes % (A) 8 %; Neutrophils # (A) 5.6 k/uL (1.3-7.7); Neutrophils % (A) 57 %; Platelet Count 343 k/uL (150-450); RDW 13.6 % (11.5-15.5); WBC 9.9 k/uL (3.8-10.6)
--- NOTE | 2017-09-07 02:09 | XR ---
EXAMINATION TYPE: XR KUB DATE OF EXAM: 09/07/2017 COMPARISON: 08/08/2016 HISTORY: Abdominal pain TECHNIQUE: 2 views FINDINGS: There is no sign of intestinal obstruction or pneumoperitoneum. There are a few calcificati ons over the left kidney that measure up to 1 cm. There are small calculi over the right kidney. Fec al pattern is normal. Lung bases are clear. IMPRESSION: Nonacute abdomen. Renal calculi. No change compared to last exam.
[2017-09-07 02:10] LABS: ALT 23 U/L (21-72); AST 19 U/L (17-59); Albumin 4.2 g/dL (3.5-5.0); Alkaline Phosphatase 65 U/L (38-126); Anion Gap 12 mmol/L; Blood Urea Nitrogen 14 mg/dL (9-20); Calcium 9.9 mg/dL (8.4-10.2); Carbon Dioxide 26 mmol/L (22-30); Chloride 106 mmol/L (98-107); Glucose 107 mg/dL (74-99); Potassium 3.8 mmol/L (3.5-5.1); Sodium 144 mmol/L (137-145); Total Bilirubin 0.3 mg/dL (0.2-1.3); Total Protein 7.8 g/dL (6.3-8.2)
[2017-09-07 02:13] LABS: Appearance,Urine Cloudy (Clear); Bilirubin,Urine Negative (Negative); Blood,Urine Small (Negative); Color,Urine Yellow; Glucose,Urine (UA) Negative (Negative); Ketones,Urine Negative (Negative); Leukocyte Esterase,Urine Negative (Negative); PH, Urine 6.5 (5.0-8.0); Protein,Urine Trace (Negative); RBC,Urine 74 /hpf (0-5); Specific Gravity,Urine 1.013 (1.001-1.035); Squamous Epithelial Cell,Urine <1 /hpf (0-4); Urobilinogen,Urine <2.0 mg/dL (<2.0)
[2017-09-07] MEDS ORDERED: SODIUM CHLORIDE 0.9% 1,000 ML IV ONE (02:17)
[2017-09-07] MEDS ORDERED: ONDANSETRON 4 MG/2 ML VIAL IVP STA (02:17)
[2017-09-07 02:19] LABS: Amphetamine Screen,Urine Detected (NotDetected); Barbiturate Screen,Urine Detected (NotDetected); Benzodiazepines Screen,Urine Not Detected (NotDetected); Cocaine Screen,Urine Not Detected (NotDetected); Methadone Screen, Urine Not Detected (NotDetected); Opiate Screen,Urine Not Detected (NotDetected); Oxycodone Screen, Urine Detected (NotDetected); Phencyclidine Screen,Urine Not Detected (NotDetected); Tricyclic Antidepressant,Urine Not Detected (NotDetected); Urn Cannabinoid Scrn Not Detected (NotDetected)
[2017-09-07] MEDS ORDERED: MORPHINE SULFATE 4 MG/ML SYRINGE IVP STA (02:36)
[2017-09-07 03:08] VITALS: PULSE 89
[2017-09-07] MEDS ORDERED: LORazepam 2 MG/ML INJ IV STA (03:08)
--- NOTE | 2017-09-07 03:40 | CT ---
EXAM: CT Abdomen and Pelvis Without Intravenous Contrast CLINICAL HISTORY: Hx. of multiple kidney stones with lithotripsy and stents, bladder surgery, and splenectomy. Pt. c/o left flank pain, NKI. TECHNIQUE: Axial computed tomography images of the abdomen and pelvis without intravenous contrast. CTDI is a mGy and DLP is 443.30 mGy-cm. This CT exam was performed using one or more of the following dose reduction techniques: automated exposure control, adjustment of the mA and/or kV according to patient size, and/or use of iterative reconstruction technique. Coronal and sagittal reconstructions are performed COMPARISON: No relevant prior studies available. 02/13/14 FINDINGS: Lower thorax: No acute findings. ABDOMEN: Liver: Unremarkable. Gallbladder and bile ducts: Unremarkable. No calcified stones. No ductal dilation. Pancreas: Unremarkable. No ductal dilation. Spleen: Unremarkable. No splenomegaly. Adrenals: Unremarkable. No mass. Kidneys and ureters: Each kidney has several nonobstructing renal stones larger on the left. Largest is in the lower pole measuring about 13 mm. Stomach and bowel: Unremarkable. No obstruction. No mucosal thickening. Appendix: Normal appendix and remainder of the bowel. PELVIS: Bladder: 2 x 6 mm calcification in the region of penile urethra, best seen on series 3 image 170 is unchanged. ABDOMEN and PELVIS: Intraperitoneal space: Unremarkable. No free air. No significant fluid collection. Bones/joints: Medial posterior left eighth and ninth ribs are nearly fused, either post traumatic or developmental. No dislocation. Soft tissues: Unremarkable. Vasculature: Small amount of atherosclerotic calcifications. No abdominal aortic aneurysm. Lymph nodes: Unremarkable. No enlarged lymph nodes. IMPRESSION: No acute findings or substantial change Bilateral nonobstructing renal stones. No hydroureter or hydronephrosis.
[2017-09-07 04:11] VITALS: BP 130/87; RESP 20
== END 2017-09-07 04:10 | disposition home or self-care (01) ==
LOC: EC 00:59
DX: N20.0 Calculus of kidney (principal); E78.5 Hyperlipidemia, unspecified; I10 Essential (primary) hypertension; G40.909 Epilepsy, unspecified, not intractable, without status epilepticus; Z86.73 Personal history of transient ischemic attack (TIA), and cerebral infarction without residual deficits; Z87.891 Personal history of nicotine dependence; Z79.02 Long term (current) use of antithrombotics/antiplatelets; Z79.899 Other long term (current) drug therapy
CPT/HCPCS: 99284 ×2; 96374 ×2; 96375 ×4; 96361 ×2; 36415; 80053; 85025; 81001; 80306; 74018; 74176; J2060; J2270; J2405; J1885

== ENCOUNTER 2017-11-24 12:20 | Observation (INO) | payer OTHER ==
[2017-11-24] MEDS ORDERED: ASPIRIN 81 MG PO STA (12:46)
[2017-11-24] MEDS ORDERED: NITROGLYCERIN OINT 1 INCH/GM PACKET TOPICAL STA (12:46)
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
[2017-11-24] MEDS ORDERED: LORazepam 2 MG/ML INJ IV STA ×2 (13:02→13:51)
[2017-11-24 13:24] LABS: Basophils # (A) 0.1 k/uL (0-0.2); Basophils % (A) 1 %; Eosinophils # (A) 0.2 k/uL (0-0.7); Eosinophils % (A) 3 %; HCT 45.1 % (39.0-53.0); HGB 14.9 gm/dL (13.0-17.5); Lymphocytes # (A) 3.4 k/uL (1.0-4.8); Lymphocytes % (A) 36 %; MCH 30.3 pg (25.0-35.0); MCHC 33.1 g/dL (31.0-37.0); MCV 91.5 fL (80.0-100.0); Mean Platelet Volume 6.4; Monocytes # (A) 0.6 k/uL (0-1.0); Monocytes % (A) 6 %; Neutrophils # (A) 4.8 k/uL (1.3-7.7); Neutrophils % (A) 51 %; Platelet Count 347 k/uL (150-450); RBC 4.93 m/uL (4.30-5.90); RDW 14.1 % (11.5-15.5); WBC 9.3 k/uL (3.8-10.6)
[2017-11-24 13:32] LABS: Partial Thromboplastin Time 24.8 sec (22.0-30.0); Prothrombin Time 9.5 sec (9.0-12.0)
[2017-11-24 13:33] LABS: ALT 29 U/L (21-72); AST 20 U/L (17-59); Albumin 4.3 g/dL (3.5-5.0); Alkaline Phosphatase 59 U/L (38-126); Anion Gap 12 mmol/L; Blood Urea Nitrogen 17 mg/dL (9-20); Calcium 9.4 mg/dL (8.4-10.2); Carbon Dioxide 24 mmol/L (22-30); Chloride 106 mmol/L (98-107); Glucose 106 mg/dL (74-99); Potassium 4.2 mmol/L (3.5-5.1); Sodium 142 mmol/L (137-145); Total Bilirubin 0.2 mg/dL (0.2-1.3); Total Protein 7.7 g/dL (6.3-8.2)
[2017-11-24 13:46] LABS: Creatine Kinase 81 U/L (55-170)
--- NOTE | 2017-11-24 13:46 | CT ---
EXAMINATION TYPE: CT brain wo con DATE OF EXAM: 11/24/2017 COMPARISON: NONE HISTORY: Multiple seizures, then c/o excrutiating head pain CT DLP: 3518 mGycm. Automated Exposure Control for Dose Reduction was Utilized. TECHNIQUE: CT scan of the head is performed without contrast. FINDINGS: Exam is suboptimal and limited for acute intracranial hemorrhage secondary to severe motion artifact. The ventricles and sulci are within normal limits in size. Assessment for hemorrhage is nearly nondiagnostic. No obvious midline shift or mass effect. Calvarium grossly intact. IMPRESSION: Severely limited exam due to motion artifact. No obvious midline shift or mass effect. As sessment for intracranial hemorrhage limited. Consider repeat or follow-up exam.
[2017-11-24 13:59] LABS: Creatine Kinase MB 0.8 ng/mL (0.0-2.4); Troponin I <0.012 ng/mL (0.000-0.034)
--- NOTE | 2017-11-24 14:24 | XR ---
EXAMINATION TYPE: XR chest 1V portable DATE OF EXAM: 11/24/2017 COMPARISON: 07/11/1979 HISTORY: Shortness of breath. TECHNIQUE: Single frontal view of the chest is obtained. FINDINGS: There is no focal air space opacity, pleural effusion, or pneumothorax seen. The cardiac silhouette size is within normal limits. Incidental note is made of a cardiac loop recorder. The oss eous structures are intact. IMPRESSION: No acute cardiopulmonary process.
[2017-11-24] MEDS ORDERED: ACETAMINOPHEN TAB 500 MG TAB PO STA (14:35)
[2017-11-24] MEDS ORDERED: NITROGLYCERIN SL TABS 0.4 MG TAB SUBLINGUAL PRN (15:12)
[2017-11-24] MEDS ORDERED: LORazepam 2 MG/ML INJ IV PRN (15:14)
[2017-11-24] MEDS ORDERED: BUTALB/APAP/CAFF 50-325-40MG TAB PO PRN (15:31)
[2017-11-24] MEDS ORDERED: BACLOFEN 10 MG TAB PO PRN (15:31)
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
[2017-11-24 16:44] LABS: Appearance,Urine Clear (Clear); Bilirubin,Urine Negative (Negative); Blood,Urine Small (Negative); Color,Urine Light Yellow; Glucose,Urine (UA) Negative (Negative); Ketones,Urine Negative (Negative); Leukocyte Esterase,Urine Negative (Negative); Nitrite,Urine Negative (Negative); PH, Urine 7.5 (5.0-8.0); Protein,Urine Negative (Negative); RBC,Urine 33 /hpf (0-5); Specific Gravity,Urine 1.012 (1.001-1.035); Urobilinogen,Urine <2.0 mg/dL (<2.0); WBC,Urine 2 /hpf (0-5)
[2017-11-24 16:57] VITALS: RESP 16
[2017-11-24 19:10] LABS: Creatine Kinase 72 U/L (55-170)
[2017-11-24 19:23] LABS: Creatine Kinase MB 0.7 ng/mL (0.0-2.4); Troponin I <0.012 ng/mL (0.000-0.034)
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
[2017-11-24] MEDS: NITROGLYCERIN OINT 1 INCH/GM PACKET TOPICAL SCH (19:42)
[2017-11-24] MEDS: DILTIAZEM ORAL 60 MG TAB PO SCH ×2 (19:45→20:42)
[2017-11-24] MEDS: levETIRAcetam 500 MG TAB PO SCH (20:41)
[2017-11-24] MEDS: LOSARTAN 50 MG TAB PO SCH (20:42)
[2017-11-24] MEDS: oxyCODONE-APAP 7.5-325MG 1 EACH TAB PO PRN (20:42)
--- NOTE | 2017-11-24 21:18 | CT ---
EXAMINATION TYPE: CT brain wo con DATE OF EXAM: 11/24/2017 COMPARISON: 11/24/2017 earlier today HISTORY: 47-year-old male severe headache, had seizures today. TECHNIQUE: Examination was done in axial plane without intravenous contrast. Coronal and sagittal r econstructions performed. CT DLP: 885.9 mGycm Automated exposure control for dose reduction was used. FINDINGS: There is no evidence of acute intracranial hemorrhage, acute ischemic changes, mass effect, or extra -axial fluid collection. There is no effacement of cerebral sulci or basal subarachnoid cisterns. T here is no hydrocephalus. There is no midline shift. Pedro-white matter distinction is preserved. There is asymmetric bulbous appearance in the region of the left cavernous sinus. Paranasal sinuses and mastoid air cells are well pneumatized. Orbits and globes are intact. IMPRESSION: 1. No acute intracranial abnormality seen. 2. Asymmetric bulbous appearance to the left cavernous sinus. Consider contrast-enhanced MRI and MRA [facility] [place] [facility] [place] to exclude cavernous sinus pathology or aneurysm.
[2017-11-25] MEDS: NITROGLYCERIN OINT 1 INCH/GM PACKET TOPICAL SCH ×2 (00:42→05:04)
[2017-11-25 01:34] LABS: Creatine Kinase 62 U/L (55-170)
[2017-11-25 01:49] LABS: Creatine Kinase MB 0.5 ng/mL (0.0-2.4); Troponin I <0.012 ng/mL (0.000-0.034)
[2017-11-25 06:53] LABS: Basophils # (A) 0.1 k/uL (0-0.2); Basophils % (A) 1 %; Eosinophils # (A) 0.2 k/uL (0-0.7); Eosinophils % (A) 3 %; HCT 46.9 % (39.0-53.0); HGB 15.4 gm/dL (13.0-17.5); Lymphocytes # (A) 1.9 k/uL (1.0-4.8); Lymphocytes % (A) 26 %; MCHC 32.9 g/dL (31.0-37.0); MCV 91.1 fL (80.0-100.0); Mean Platelet Volume 6.8; Monocytes # (A) 0.5 k/uL (0-1.0); Monocytes % (A) 7 %; Neutrophils # (A) 4.6 k/uL (1.3-7.7); Neutrophils % (A) 62 %; Platelet Count 349 k/uL (150-450); RBC 5.14 m/uL (4.30-5.90); WBC 7.4 k/uL (3.8-10.6)
[2017-11-25 07:07] LABS: Anion Gap 13 mmol/L; Blood Urea Nitrogen 13 mg/dL (9-20); Calcium 9.6 mg/dL (8.4-10.2); Carbon Dioxide 21 mmol/L (22-30); Chloride 108 mmol/L (98-107); Cholesterol 208 mg/dL (<200); Glucose 99 mg/dL (74-99); HDL Cholesterol 42 mg/dL (40-60); LDL Cholesterol,Calculated 138 mg/dL (0-99); Potassium 4.7 mmol/L (3.5-5.1); Sodium 142 mmol/L (137-145); Triglycerides 138 mg/dL (<150)
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
[2017-11-25] MEDS ORDERED: CLOPIDOGREL 75 MG TAB PO SCH (09:00)
[2017-11-25] MEDS ORDERED: ASPIRIN 325 MG TAB PO SCH (09:00)
[2017-11-25] MEDS ORDERED: ATORVASTATIN 20 MG TAB PO SCH (09:00)
[2017-11-25] MEDS ORDERED: ENOXAPARIN 40 MG/0.4 ML SYRINGE SQ SCH (09:00)
[2017-11-25] MEDS: levETIRAcetam 500 MG TAB PO SCH (09:16)
[2017-11-25] MEDS: LOSARTAN 50 MG TAB PO SCH (09:16)
[2017-11-25] MEDS: DILTIAZEM ORAL 60 MG TAB PO SCH (09:16)
[2017-11-25] MEDS: oxyCODONE-APAP 7.5-325MG 1 EACH TAB PO PRN (09:16)
[2017-11-25 12:05] VITALS: BP 106/67; PULSE 67; TEMP 97.7
--- NOTE | 2017-11-25 12:29 | P.PN ---
Subjective Progress Note Date: 11/25/17 Patient is a pleasant 47-year-old male who is being followed by the neurology service for breakthrough seizure. Patient states he was working outside yesterday and was having some confusion and chest tightness. Patient states he felt like he may be having an aura prior to a seizure. He came to [facility] for further evaluation. He did have a witnessed seizure in the emergency room. Patient denies missing any doses of his Keppra 1000 mg twice a day. He follows with Dr. Gilbert as an outpatient. Ultram has been discontinued as this can reduce seizure threshold. Patient has CT of the brain done in the emergency room which was a limited study due to motion artifact. A repeat CT was done which showed asymmetric bulbous appearance to the left cavernous sinus. Patient has had no further seizures since admission. Cardiology was consulted and they are recommending outpatient stress test. At the time of my evaluation, patient is resting comfortably in bed and appears to be in no acute distress. Objective - Vital Signs Vital signs: Vital Signs Temp 97.7 F 11/25/17 12:00 Pulse 67 11/25/17 12:00 Resp 16 11/25/17 12:00 BP 106/67 11/25/17 12:00 Pulse Ox 97 11/25/17 12:00 Intake & Output 11/24/17 11/25/17 11/25/17 18:59 06:59 18:59 Output Total 600 1200 Balance -600 -1200 Weight 87.6 kg 87.6 kg Output: Urine 600 1200 Other: Voiding Method Toilet # Voids 2 - Exam PHYSICAL EXAM: GENERAL APPEARANCE: Patient is a well-developed, male who appears to be in no acute distress. HEENT: Normocephalic, atraumatic, no facial asymmetry is seen. Neck is supple with no masses felt. CARDIOVASCULAR: Regular rate and rhythm. ABDOMEN: Nontender, nondistended. EXTREMITIES: Show no edema or clubbing. NEUROLOGICAL EXAM: Patient is awake, alert, and oriented 3. Speech and language are normal. Strength is 5/5 in the right upper and lower extremity. Strength is 5-/5 in the left upper and lower extremity. Patient has sensory deficit to light touch in left lower extremity. No facial asymmetry is seen on cranial nerve testing. No tremors or seizure-like activities are seen. - Labs CBC & Chem 7: 11/25/17 06:15 11/25/17 06:15 Labs: Abnormal Lab Results - Last 24 Hours (Table) 11/24/17 11/24/17 11/25/17 Range/Units 12:55 16:25 06:15 Chloride 108 H (98-107) mmol/L Carbon Dioxide 21 L (22-30) mmol/L Glucose 106 H (74-99) mg/dL Cholesterol 208 H (<200) mg/dL LDL Cholesterol, Calc 138 H (0-99) mg/dL Urine Blood Small H (Negative) Urine RBC 33 H (0-5) /hpf Microbiology - Last 24 Hours (Table) 11/24/17 16:25 Urine Culture - Preliminary Urine,Voided Assessment and Plan Plan: Impression: 1. Breakthrough seizure 2. Chronic left-sided weakness 3. History of CVA 4. Chest pain 5. Hypertension 6. History of atrial fibrillation Recommendation: Patient did have breakthrough seizure while on maintenance dose of Keppra. Keppra level has been drawn and results are pending. Ultram has been discontinued as this can reduce seizure threshold. EEG was done and results are pending. As mentioned above, computed tomography scan did show asymmetric bulbous appearance to the left cavernous sinus. It is recommended that a contrast enhanced MRI MRA be ordered to exclude cavernous sinus pathology or aneurysm. I will order MRI MRA to evaluate. Continue current dose of Keppra. Any further seizures I may increase this dose. Further recommendations following the MRI/MRA. Patient is to continue to follow with Dr. Gilbert for his seizure disorder as an outpatient. Continue neurological checks. Continue seizure precautions. Patient is stable for discharge from neurological standpoint if MRI/MRA are unremarkable. I will continue to follow with you. Further recommendations after MRI/MRA. I performed an examination of the patient and discussed the management with the SECURITY SYSTEM ANALYST. I have reviewed the SECURITY SYSTEM ANALYST notes and agree with the findings and plan of care.
--- NOTE | 2017-11-25 13:23 | P.DS ---
Providers Date of admission: 11/24/17 15:12 Expected date of discharge: 11/25/17 Attending physician: Dandre Lowry Attending physician Dr. Perry Min. Dictation by Dr. chandan Fuentes [facility]. Observation status. Patient feel good requested to go home. Final diagnosis: Chest pain without acute changes in the EKG and normal troponin possible angina for further recommendation with Lexiscan stress test on Monday patient refused to stay. #2 seizure disorder with the break through seizure seen by the neurologist PA recommended MRI MRA could not be done until Monday however patient refused and advised to have it as outpatient #3 history of previous CVA right sided with the left hemiparesis using a cane for ambulation. #4 history of hypertension and hypertensive heart disease currently controlled. #5 hyper lipidemia need for further adjustment as outpatient when he see Dr. Perry Min next week. #6 chronic back pain on chronic pain medication. Presentation in the emergency room: Came to the emergency room with the pressure pain after he had lifting heavy object, and also found that he has breakthrough his seizures in the emergency room, admitted to the hospital observation with the consultation with the cardiology and neurology. Hospital course: Patient did not have any farther seizure, his EKG was normal sinus rhythm. Seen by Dr. cardiology Dr. Harry who recommended stress test with Lexiscan on Monday, patient refused to stay, patient stated that he will see his regulatory law specialist Dr. Ibrahim and he will decide for him if he need that test are not. But he wants to go home. Patient also seen by the neurology PA for Dr. Reyna, she did not recommend increase the dose of Keppra, she recommended to have MRI and MRA of the brain After She Ordered a Second Computed Tomography Scan of the Brain, That Will Be Planned to Be Done on Monday, Patient However Refused to Stay and He Stated That He Has Many MRIs before by Dr. Gilbert and He Will Be Following with Dr. Gilbert the Neurologist and to See If He Need Further MRI or Not. Patient Advised to Follow-Up with Dr. Perry Min Will Will Be in His Office Next Week Started Monday for for Further Adjustment of His Cholesterol Medication. Patient Prefers to Continue His Current Medication However Patient Advised to Stop Ultram Because it may decrease the threshold of initiation of seizures. Continue pain control and home pain medication for chronic pain. On [id number] discharged today from observation: Patient is conscious alert oriented and he insisted to go home. His HEENT was negative and neck was supple and the chest was clear to auscultation and percussion, heart was regular sinus rhythm no evidence of irregularities or atrial fibrillation. Abdomen is soft positive bowel sounds Extremities no edema and positive pulses. Patient use a cane for ambulation with the underlying history of right CVA and left hemiparesis. Patient stable for discharge and his vital sign on the monitor computed stable as well no headache and no blurred vision and he will be following with Dr. Perry Min next week Consults: 11/24/17 15:12 Consult Physician Urgent Consulting Provider: Fer Montano Consult Reason/Comments: cp Do you want consulting provider notified?: Yes Consult Physician Urgent Consulting Provider: Niles Reyna Consult Reason/Comments: seizure Do you want consulting provider notified?: Yes Primary care physician: Perry Min Plan - Discharge Summary Discharge Rx Participant: No New Discharge Prescriptions: Continue Baclofen [Lioresal] 10 mg PO BID PRN PRN Reason: Pain levETIRAcetam [Keppra] 1,000 mg PO Q12HR Clopidogrel [Plavix] 75 mg PO DAILY oxyCODONE-APAP 7.5-325MG [Percocet 7.5-325 mg] 1 tab PO TID PRN PRN Reason: Pain Losartan [Cozaar] 50 mg PO BID amLODIPine [Norvasc] 5 mg PO DAILY Atorvastatin [Lipitor] 20 mg PO DAILY Butalb/APAP/Caff 50-325-40Mg [Fioricet 50-325-40] 1 tab PO DAILY PRN PRN Reason: Headache Discontinued traMADol HCl [Ultram] 50 mg PO TID PRN PRN Reason: Pain Discharge Medication List Baclofen [Lioresal] 10 mg PO BID PRN 10/30/15 [History] levETIRAcetam [Keppra] 1,000 mg PO Q12HR 10/30/15 [History] Clopidogrel [Plavix] 75 mg PO DAILY 06/02/16 [History] oxyCODONE-APAP 7.5-325MG [Percocet 7.5-325 mg] 1 tab PO TID PRN 08/08/16 [ History] Losartan [Cozaar] 50 mg PO BID 02/13/17 [History] Atorvastatin [Lipitor] 20 mg PO DAILY 11/24/17 [History] Butalb/APAP/Caff 50-325-40Mg [Fioricet 50-325-40] 1 tab PO DAILY PRN 11/24/17 [ History] amLODIPine [Norvasc] 5 mg PO DAILY 11/24/17 [History] Follow up Appointment(s)/Referral(s): Perry Min MD [Primary Care Provider] - 1-2 days
--- NOTE | 2017-11-25 16:16 | ECHOF ---
Referral Reason:Chest pain and cardiomyopathy MEASUREMENTS -------- HEIGHT: 188.0 cm WEIGHT: 87.5 kg BP: RVIDd: 3.5 cm (< 3.3) IVSd: 1.4 cm (0.6 - 1.1) LVIDd: 3.8 cm (3.9 - 5.3) LVPWd: 1.4 cm (0.6 - 1.1) IVSs: 1.4 cm LVIDs: 2.9 cm LVPWs: 1.6 cm LA Diam: 3.3 cm (2.7 - 3.8) Ao Diam: 3.9 cm (2.0 - 3.7) AV Cusp: 2.5 cm (1.5 - 2.6) MV EXCURSION: 12.364 mm (> 18.000) MV EF SLOPE: 71 mm/s (70 - 150) EPSS: 0.8 cm MV E Dustin: 0.65 m/s MV DecT: 207 ms MV A Dustin: 0.65 m/s MV E/A Ratio: 1.00 RAP: 5.00 mmHg RVSP: 13.29 mmHg FINDINGS -------- Sinus rhythm. This was a technically good study. The left ventricular size is normal. There is mild concentric left ventricular hypertrophy. Overa ll left ventricular systolic function is normal with, an EF between 55 - 60 %. The right ventricle is normal in size. The left atrial size is normal. The right atrial size is normal. There is mild aortic regurgitation. Mild mitral annular calcification present. Mild mitral regurgitation is present. Mild tricuspid regurgitation present. There is no evidence of pulmonary hypertension. The right v entricular systolic pressure, as measured by Doppler, is 13.29mmHg. There is no pulmonic regurgitation present. The aortic root size is normal. There is no pericardial effusion. CONCLUSIONS -------- 1. The left ventricular size is normal. 2. There is mild concentric left ventricular hypertrophy. 3. Overall left ventricular systolic function is normal with, an EF between 55 - 60 %. 4. The right ventricle is normal in size. 5. The left atrial size is normal. 6. The right atrial size is normal. 7. There is mild aortic regurgitation. 8. Mild mitral annular calcification present. 9. Mild mitral regurgitation is present. 10. Mild tricuspid regurgitation present. 11. There is no evidence of pulmonary hypertension. 12. The right ventricular systolic pressure, as measured by Doppler, is 13.29mmHg. 13. There is no pulmonic regurgitation present. 14. The aortic root size is normal. 15. There is no pericardial effusion. BISCUIT FACTORY WORKER: Alley Jacques RDCS
--- NOTE | 2017-11-26 18:24 | EEG ---
ELECTROENCEPHALOGRAM REPORT DATE OF SERVICE: 11/25/2017. REASON FOR EEG TESTING: Seizure. ANTIEPILEPTIC MEDICATIONS: Keppra. DESCRIPTION OF THE PROCEDURE: This EEG was performed using a 21 channel digital electroencephalograph, following international 10-20 system. DESCRIPTION OF THE RECORDING: From the beginning of the tracing, and with patient's eyes closed, the background rhythm was mostly consisting of 9 Hz alpha frequency in the posterior occipital leads. Muscle artifacts are seen more so in the right leads compared to the left. Photic stimulation was performed with a minimal driving response seen. No pathological waves were elicited. Occasional muscle artifacts are seen later in the tracing. The patient does reach stage II of sleep, and occasional sleep spindles and K complexes are seen. No epileptiform discharges were seen. His EKG lead showed a regular rate and rhythm. INTERPRETATION: This asleep and awake EEG can be considered within normal limits. There was no asymmetry seen. No epileptiform discharges were noticed. The absence of epileptiform discharges does not rule out the diagnosis of epilepsy, therefore clinical correlation is recommended. MMPAOLA / ROSANAN: [id number] /
[2017-11-27] MEDS ORDERED: REGADENOSON 0.4 MG/5 ML SYRINGE IV ONE (08:00)
[2017-11-27] MEDS ORDERED: AMINOPHYLLINE 500 MG/20 ML VIAL IV PRN (08:00)
== END 2017-11-25 14:44 | disposition home or self-care (01) ==
LOC: EC 12:20 → 3OBS 15:12
PROVIDERS: ADMIT Internal Medicine; ATTEND Internal Medicine
DX: R07.89 Other chest pain (principal); R07.2 Precordial pain; R53.83 Other fatigue; R53.1 Weakness; R42 Dizziness and giddiness; G40.909 Epilepsy, unspecified, not intractable, without status epilepticus; G43.909 Migraine, unspecified, not intractable, without status migrainosus; J44.9 Chronic obstructive pulmonary disease, unspecified; I11.9 Hypertensive heart disease without heart failure; I48.91 Unspecified atrial fibrillation; E78.00 Pure hypercholesterolemia, unspecified; E78.5 Hyperlipidemia, unspecified; K30 Functional dyspepsia; I69.354 Hemiplegia and hemiparesis following cerebral infarction affecting left non-dominant side; G89.29 Other chronic pain; M54.9 Dorsalgia, unspecified; I83.93 Asymptomatic varicose veins of bilateral lower extremities; F41.9 Anxiety disorder, unspecified; Z79.899 Other long term (current) drug therapy; Z79.02 Long term (current) use of antithrombotics/antiplatelets; Z87.19 Personal history of other diseases of the digestive system; Z90.81 Acquired absence of spleen; Z87.442 Personal history of urinary calculi; Z87.891 Personal history of nicotine dependence; Z80.6 Family history of leukemia; Z84.89 Family history of other specified conditions; Z95.818 Presence of other cardiac implants and grafts
CPT/HCPCS: 99285 ×2; 96374 ×2; 96376 ×2; 36415; 94760; 95819; 93005; 93306; 80061; 80053; 80048; 80177; 82550 ×2; 82553 ×2; 83735; 84484 ×2; 85025 ×2; 85610; 85730; 81001; 87086; 71045; 70450; G0378 ×2; J2060

== ENCOUNTER → 2017-11-28 | Outpatient (CLI) | payer OTHER ==
--- NOTE | 2017-11-28 19:38 | MR ---
EXAMINATION TYPE: MR angio head wo con DATE OF EXAM: 11/28/2017 COMPARISON: CT brain 11/24/2017, MR brain 11/28/2017 HISTORY: Pt had abnormal CT 11-24-17, was seen on this day for seizures TECHNIQUE: Time of flight images focusing on the [place] of [place] were performed without contrast. FINDINGS: Persistent origin of the left posterior cerebral artery is present, nodular appearanc e to the basilar tip is felt likely to be congenital, suggestion of fenestration at this level. Mild asymmetry within the internal carotid arteries is noted however and there is no evident aneurysm or d issection, no evident embolus. Internal carotid arteries, vertebrobasilar system are patent. 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
--- NOTE | 2017-11-28 19:43 | MR ---
EXAMINATION TYPE: MR brain wo/w con DATE OF EXAM: 11/28/2017 COMPARISON: Prior brain MRI 08/27/2015 HISTORY: Pt had abnormal CT 11-24-17, was seen on this day for seizures TECHNIQUE: Multiplanar, multisequence images of the brain and brainstem is performed without and with IV contras t, utilizing 9 mL intravenous Gadavist . FINDINGS: Diffusion weighted images demonstrate no evidence of a recent infarct or other diffusion ab normality. There is no extra-axial fluid collection or significant interval change in white matter s ignal abnormality seen on previous exam. The ventricular system and cisternal spaces are normal in s ize and appearance. The brain volume is age appropriate. Midline structures demonstrate normal morphology. The craniocervical junction appears within normal limits. Post contrast images demonstrate no abnormal enhancement. The dural venous sinuses appear pa tent. The visualized sinuses are clear and the globes are intact. Mild inflammatory change present in the mastoid air cells on the right as on prior IMPRESSION: Stable white matter signal changes. Additional findings above.
== END | disposition home or self-care (01) ==
LOC: RADMRIMAIN 18:05
PROVIDERS: ATTEND Nurse Practitioner Acute Care
DX: R90.82 White matter disease, unspecified (principal); R93.0 Abnormal findings on diagnostic imaging of skull and head, not elsewhere classified
CPT/HCPCS: 70544; 70553; A9581

== ENCOUNTER 2018-04-06 10:18 | Emergency (ER) | payer OTHER ==
[2018-04-06 10:21] VITALS: RESP 18
[2018-04-06] MEDS ORDERED: SODIUM CHLORIDE 0.9% 1,000 ML IV STA (10:49)
[2018-04-06] MEDS ORDERED: MORPHINE SULFATE 4 MG/ML SYRINGE IV STA (10:49)
[2018-04-06] MEDS ORDERED: ONDANSETRON 4 MG/2 ML VIAL IVP STA (10:49)
[2018-04-06] MEDS ORDERED: KETOROLAC 30 MG/ML 1 ML VIAL IVP STA (10:49)
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
[2018-04-06 11:29] LABS: Basophils # (A) 0.1 k/uL (0-0.2); Basophils % (A) 1 %; Eosinophils # (A) 0.4 k/uL (0-0.7); Eosinophils % (A) 4 %; HCT 46.1 % (39.0-53.0); HGB 15.6 gm/dL (13.0-17.5); Lymphocytes # (A) 2.8 k/uL (1.0-4.8); Lymphocytes % (A) 28 %; MCH 30.4 pg (25.0-35.0); MCHC 33.7 g/dL (31.0-37.0); MCV 90.2 fL (80.0-100.0); Mean Platelet Volume 6.6; Monocytes # (A) 0.7 k/uL (0-1.0); Monocytes % (A) 7 %; Neutrophils # (A) 5.8 k/uL (1.3-7.7); Neutrophils % (A) 59 %; Platelet Count 371 k/uL (150-450); RBC 5.11 m/uL (4.30-5.90); RDW 14.2 % (11.5-15.5)
[2018-04-06 11:34] LABS: Appearance,Urine Clear (Clear); Bacteria,Urine Rare /hpf; Bilirubin,Urine Negative (Negative); Blood,Urine Small (Negative); Color,Urine Yellow; Glucose,Urine (UA) Negative (Negative); Ketones,Urine Negative (Negative); Leukocyte Esterase,Urine Negative (Negative); Mucus,Urine Rare /hpf; Nitrite,Urine Negative (Negative); PH, Urine 6.5 (5.0-8.0); Protein,Urine Trace (Negative); RBC,Urine 34 /hpf (0-5); Specific Gravity,Urine 1.012 (1.001-1.035); Squamous Epithelial Cell,Urine 1 /hpf (0-4); Urobilinogen,Urine <2.0 mg/dL (<2.0); WBC,Urine 2 /hpf (0-5)
[2018-04-06 11:40] LABS: ALT 23 U/L (21-72); AST 25 U/L (17-59); Albumin 4.2 g/dL (3.5-5.0); Alkaline Phosphatase 61 U/L (38-126); Amylase 57 U/L (30-110); Anion Gap 9 mmol/L; Blood Urea Nitrogen 12 mg/dL (9-20); Calcium 9.6 mg/dL (8.4-10.2); Carbon Dioxide 24 mmol/L (22-30); Chloride 108 mmol/L (98-107); Glucose 86 mg/dL (74-99); Lipase 82 U/L (23-300); Potassium 3.8 mmol/L (3.5-5.1); Sodium 141 mmol/L (137-145); Total Bilirubin 0.5 mg/dL (0.2-1.3); Total Protein 7.8 g/dL (6.3-8.2)
[2018-04-06] MEDS ORDERED: TAMSULOSIN 0.4 MG CAP.ER.24H PO STA (11:49)
--- NOTE | 2018-04-06 11:55 | XR ---
EXAMINATION TYPE: XR KUB DATE OF EXAM: 04/06/2018 COMPARISON: 09/07/2017 INDICATION: Abdomen pain with nausea TECHNIQUE: Single view abdomen upright view FINDINGS: There are some air-fluid levels present. Suspicious differential air-fluid levels are not evident. No free air is evident. Air is within the distal colon. Psoas margins are normal. Multiple bilateral renal stones present. The largest in the mid left kidney measuring 1.6 x 1.1 cm. Psoas margins are normal. No organomegaly is present. IMPRESSION: 1. Nonspecific bowel gas pattern with air within small bowel loops as well as the colon. Follow-up ca n be performed as clinically indicated. 2. Multiple bilateral renal stones
[2018-04-06 12:14] LABS: Partial Thromboplastin Time 25.6 sec (22.0-30.0); Prothrombin Time 9.6 sec (9.0-12.0)
[2018-04-06 12:48] VITALS: BP 139/94; PULSE 83; TEMP 97.7
== END 2018-04-06 12:52 | disposition home or self-care (01) ==
LOC: EC 10:18
DX: R31.9 Hematuria, unspecified (principal); R10.32 Left lower quadrant pain; N20.0 Calculus of kidney; E78.5 Hyperlipidemia, unspecified; I10 Essential (primary) hypertension; G40.909 Epilepsy, unspecified, not intractable, without status epilepticus; I69.354 Hemiplegia and hemiparesis following cerebral infarction affecting left non-dominant side; Z87.891 Personal history of nicotine dependence; Z79.01 Long term (current) use of anticoagulants; Z79.82 Long term (current) use of aspirin; Z79.899 Other long term (current) drug therapy; Z86.79 Personal history of other diseases of the circulatory system; Z98.890 Other specified postprocedural states
CPT/HCPCS: 99284; 96374; 96375 ×2; 96361; 36415; 80053; 82150; 83690; 85025; 85610; 85730; 81001; 74018; J2270; J2405; J1885

== ENCOUNTER 2018-08-21 21:55 | Emergency (ER) | payer BC, OTHER ==
[2018-08-21 22:01] VITALS: TEMP 98
[2018-08-21] MEDS ORDERED: SODIUM CHLORIDE 0.9% 1,000 ML IV STA (22:08)
[2018-08-21] MEDS ORDERED: ONDANSETRON 4 MG/2 ML VIAL IVP STA (22:08)
[2018-08-21] MEDS ORDERED: KETOROLAC 30 MG/ML 1 ML VIAL IVP STA (22:08)
[2018-08-21] MEDS ORDERED: MORPHINE SULFATE 4 MG/ML SYRINGE IVP STA (22:14)
[2018-08-21 22:26] LABS: Basophils # (A) 0.1 k/uL (0-0.2); Basophils % (A) 1 %; Eosinophils # (A) 0.4 k/uL (0-0.7); Eosinophils % (A) 5 %; HCT 49.3 % (39.0-53.0); HGB 16.5 gm/dL (13.0-17.5); Lymphocytes # (A) 4.1 k/uL (1.0-4.8); Lymphocytes % (A) 45 %; MCH 29.6 pg (25.0-35.0); MCHC 33.4 g/dL (31.0-37.0); MCV 88.8 fL (80.0-100.0); Mean Platelet Volume 6.2; Monocytes # (A) 0.7 k/uL (0-1.0); Monocytes % (A) 8 %; Neutrophils # (A) 3.4 k/uL (1.3-7.7); Neutrophils % (A) 37 %; Platelet Count 350 k/uL (150-450); RBC 5.55 m/uL (4.30-5.90); RDW 14.2 % (11.5-15.5); WBC 9.2 k/uL (3.8-10.6)
[2018-08-21 22:35] LABS: ALT 32 U/L (21-72); AST 33 U/L (17-59); Albumin 4.7 g/dL (3.5-5.0); Alkaline Phosphatase 49 U/L (38-126); Amylase 56 U/L (30-110); Anion Gap 10 mmol/L; Blood Urea Nitrogen 15 mg/dL (9-20); Calcium 9.8 mg/dL (8.4-10.2); Carbon Dioxide 23 mmol/L (22-30); Chloride 106 mmol/L (98-107); Glucose 91 mg/dL (74-99); Lipase 49 U/L (23-300); Potassium 4.8 mmol/L (3.5-5.1); Sodium 139 mmol/L (137-145); Total Bilirubin 0.7 mg/dL (0.2-1.3); Total Protein 8.7 g/dL (6.3-8.2)
[2018-08-21 23:34] LABS: Appearance,Urine Clear (Clear); Bilirubin,Urine Negative (Negative); Blood,Urine Negative (Negative); Color,Urine Light Yellow; Glucose,Urine (UA) Negative (Negative); Ketones,Urine Negative (Negative); Leukocyte Esterase,Urine Negative (Negative); Nitrite,Urine Negative (Negative); Protein,Urine Negative (Negative); Specific Gravity,Urine 1.006 (1.001-1.035); Urobilinogen,Urine <2.0 mg/dL (<2.0)
--- NOTE | 2018-08-21 23:36 | XR ---
EXAM: XR Abdomen, 2 Views CLINICAL HISTORY: ITS.REASON XR Reason: abdominal pain TECHNIQUE: Frontal view of the abdomen/pelvis with upright view of the abdomen. COMPARISON: Radiographic series 04/06/18 FINDINGS: Intraperitoneal space: No visualized free air. Gastrointestinal tract: Large colonic stool burden. Limited characterization of the small bowel due to lack of gas. Organs: 3 rounded opacities overlying the left renal shadow measuring up to 15 mm as well as 2 smaller opacities overlying the right renal shadow measuring up to 4 mm. Bones/joints: No acute findings. IMPRESSION: 1. Multiple rounded opacities are again noted overlying the renal shadows likely representing nephrolithiasis. 2. Large colonic stool burden. Correlate for constipation. Limited characterization of the small bowel. No visualized free air.
[2018-08-22] MEDS ORDERED: ONDANSETRON 4 MG/2 ML VIAL IVP STA (00:23)
--- NOTE | 2018-08-22 00:57 | CT ---
EXAM: CT Abdomen and Pelvis Without Intravenous Contrast CLINICAL HISTORY: ITS.REASON CT Reason: Pain TECHNIQUE: Axial computed tomography images of the abdomen and pelvis without intravenous contrast. CTDI is 8 mGy and DLP is 493.8 mGy-cm. This CT exam was performed using one or more of the following dose reduction techniques: automated exposure control, adjustment of the mA and/or kV according to patient size, and/or use of iterative reconstruction technique. Coronal and sagittal reformatted images were created and reviewed. COMPARISON: 09/07/17 FINDINGS: Lung bases: Stable chronic changes to the left lower ribs. There is linear airspace disease favoring scarring in the right lower lung. Mild atelectasis is present dependently. ABDOMEN: Liver: Unremarkable. Gallbladder and bile ducts: Unremarkable. No calcified stones. No ductal dilation. Pancreas: Unremarkable. No ductal dilation. Spleen: Stable small spleen with rounded configuration. Adrenals: Unremarkable. No mass. Kidneys and ureters: There are multiple renal stones bilaterally, largest within the left kidney measures approximately 1.5 cm and largest on the right kidney measures approximately 5 mm. No evidence for hydronephrosis currently. There is mild urothelial thickening regarding the ureters which could be related to scarring or mild reactive changes. Stomach and bowel: Moderate colonic stool burden. No evidence for focal colonic inflammation. Normal small bowel caliber. The stomach is contracted, limitedly characterized. No obstruction. No mucosal thickening. PELVIS: Appendix: No findings to suggest acute appendicitis. Bladder: Unremarkable. No stones. Reproductive: Unremarkable as visualized. ABDOMEN and PELVIS: Intraperitoneal space: Unremarkable. No free air. No significant fluid collection. Bones/joints: No acute fracture. No dislocation. Soft tissues: Unremarkable. Vasculature: Unremarkable. No abdominal aortic aneurysm. Lymph nodes: Unremarkable. No enlarged lymph nodes. IMPRESSION: 1. Bilateral nonobstructing renal stones. Mild urothelial thickening noted bilaterally which could be related to scarring or mild reactive changes. 2. Moderately prominent colonic stool burden. Correlate for constipation. No evidence for focal bowel inflammation or obstruction.
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
[2018-08-22] MEDS ORDERED: MAGNESIUM CITRATE 296 ML BOTTLE PO ONE (01:06)
[2018-08-22] MEDS ORDERED: DOCUSATE 283 MG/5 ML ENEMA RECTAL STA (01:06)
[2018-08-22 01:24] VITALS: BP 164/111; PULSE 76; RESP 16
== END 2018-08-22 01:15 | disposition home or self-care (01) ==
LOC: EC 21:55
DX: K59.00 Constipation, unspecified (principal); E78.5 Hyperlipidemia, unspecified; I10 Essential (primary) hypertension; G40.909 Epilepsy, unspecified, not intractable, without status epilepticus; I69.354 Hemiplegia and hemiparesis following cerebral infarction affecting left non-dominant side; Z87.891 Personal history of nicotine dependence; Z79.02 Long term (current) use of antithrombotics/antiplatelets; Z79.82 Long term (current) use of aspirin; Z79.899 Other long term (current) drug therapy; Z87.442 Personal history of urinary calculi; Z98.890 Other specified postprocedural states; Z90.81 Acquired absence of spleen; Z95.811 Presence of heart assist device; Z96.0 Presence of urogenital implants; Z86.69 Personal history of other diseases of the nervous system and sense organs; Z83.79 Family history of other diseases of the digestive system
CPT/HCPCS: 36415; 80053; 82150; 83690; 85025; 81003; 74018; 74176; 99284; 96374; 96375 ×2; 96376; 96361; J2270; J2405 ×2; J1885

== ENCOUNTER 2019-02-27 07:03 | Emergency (ER) | payer BC ==
[2019-02-27 07:07] VITALS: TEMP 97.9
[2019-02-27] MEDS ORDERED: SODIUM CHLORIDE 0.9% 1,000 ML IV STA (07:20)
[2019-02-27] MEDS ORDERED: KETOROLAC 30 MG/ML 1 ML VIAL IVP STA (07:20)
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
[2019-02-27 07:44] LABS: Basophils # (A) 0.1 k/uL (0-0.2); Basophils % (A) 1 %; Eosinophils # (A) 0.5 k/uL (0-0.7); Eosinophils % (A) 5 %; HCT 42.8 % (39.0-53.0); HGB 14.1 gm/dL (13.0-17.5); Lymphocytes # (A) 3.9 k/uL (1.0-4.8); Lymphocytes % (A) 38 %; MCH 29.5 pg (25.0-35.0); MCV 89.2 fL (80.0-100.0); Mean Platelet Volume 6.4; Monocytes # (A) 0.6 k/uL (0-1.0); Monocytes % (A) 6 %; Neutrophils # (A) 4.6 k/uL (1.3-7.7); Neutrophils % (A) 46 %; Platelet Count 346 k/uL (150-450); RDW 14.4 % (11.5-15.5); WBC 10.1 k/uL (3.8-10.6)
[2019-02-27 07:54] LABS: ALT 28 U/L (21-72); AST 25 U/L (17-59); African American GFR (CKD) >90 (>60 ml/min/1.73 sqM); Albumin 4.3 g/dL (3.5-5.0); Alkaline Phosphatase 61 U/L (38-126); Anion Gap 9 mmol/L; Blood Urea Nitrogen 17 mg/dL (9-20); Calcium 9.6 mg/dL (8.4-10.2); Carbon Dioxide 26 mmol/L (22-30); Chloride 105 mmol/L (98-107); Glucose 104 mg/dL (74-99); Non-African American GFR(CKD) 78 (>60 ml/min/1.73 sqM); Potassium 3.7 mmol/L (3.5-5.1); Sodium 140 mmol/L (137-145); Total Bilirubin 0.3 mg/dL (0.2-1.3); Total Protein 8.1 g/dL (6.3-8.2)
[2019-02-27 07:56] LABS: Appearance,Urine Clear (Clear); Bilirubin,Urine Negative (Negative); Blood,Urine Moderate (Negative); Color,Urine Yellow; Glucose,Urine (UA) Negative (Negative); Hyaline Casts,Urine 1 /lpf (0-2); Ketones,Urine Negative (Negative); Leukocyte Esterase,Urine Trace (Negative); Mucus,Urine Rare /hpf; Nitrite,Urine Negative (Negative); PH, Urine 5.5 (5.0-8.0); Protein,Urine Trace (Negative); RBC,Urine 166 /hpf (0-5); Specific Gravity,Urine 1.021 (1.001-1.035); Squamous Epithelial Cell,Urine <1 /hpf (0-4); Urobilinogen,Urine <2.0 mg/dL (<2.0); WBC,Urine 8 /hpf (0-5)
[2019-02-27] MEDS ORDERED: MORPHINE SULFATE 4 MG/ML SYRINGE IV STA (08:38)
--- NOTE | 2019-02-27 09:09 | US ---
EXAMINATION TYPE: US renals and bladder DATE OF EXAM: 02/27/2019 COMPARISON: NONE CLINICAL HISTORY: Pain. EXAM MEASUREMENTS: Right Kidney: 11.7 x 4.7 x 4.9 cm Left Kidney: 12.7 x 6.0 x 5.4 cm Right Kidney: At least 3 large kidney stones, 1.) 1.0 x 0.6 x 0.6cm, 2.) 0.6 x 0.5 x 0.6cm, 3.) 0.7 x 0.5 x 0.6cm Left Kidney: 2 large stones 1.) 1.3 x 1.3 x 0.8cm, 2.)1.1 x 0.7 x1.1cm, measures large Bladder: wnl Bilateral Jets seen: Yes IMPRESSION: 1. Multiple bilateral nonobstructing renal stones. No hydronephrosis is evident.
[2019-02-27] MEDS ORDERED: ACET/COD 300 MG/30 MG STARTER PACK 6 TAB BTL PO STA (09:23)
[2019-02-27 09:36] VITALS: BP 144/91; PULSE 60; RESP 15
== END 2019-02-27 09:29 | disposition home or self-care (01) ==
LOC: EC 07:03
DX: N20.0 Calculus of kidney (principal); E78.5 Hyperlipidemia, unspecified; I10 Essential (primary) hypertension; G40.909 Epilepsy, unspecified, not intractable, without status epilepticus; Z86.73 Personal history of transient ischemic attack (TIA), and cerebral infarction without residual deficits; Z87.891 Personal history of nicotine dependence; Z79.02 Long term (current) use of antithrombotics/antiplatelets; Z79.82 Long term (current) use of aspirin; Z79.899 Other long term (current) drug therapy; Z90.81 Acquired absence of spleen
CPT/HCPCS: 36415; 80053; 83605; 83690; 85025; 81001; 76770; 99285; 96374; 96375; 96361 ×2; J2270; J1885

== ENCOUNTER 2020-08-17 14:30 | Emergency (ER) | payer BC, OTHER ==
[2020-08-17 14:45] VITALS: RESP 18; TEMP 99.3
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
--- NOTE | 2020-08-17 16:10 | MR ---
EXAMINATION TYPE: MR lumbar spine wo con DATE OF EXAM: 08/17/2020 3:52 PM COMPARISON: 10/28/2016 HISTORY: Back pain, fall, loss of bladder control Multiplanar, MultiSpin echo imaging of the lumbar spine was performed. There is a transitional lumbar vertebral segment with partial lumbarization of S1 and rudimentary S1- S2 disc. Prior to any scheduled intervention I do recommend radiographic correlation. L1-L2: Normal disc appearance without desiccation. No herniation, protrusion or disc bulging. No ca nal stenosis is present. Foramina are patent bilaterally. L2-L3: Normal disc appearance without desiccation. No herniation, protrusion or disc bulging. No ca nal stenosis is present. Foramina are patent bilaterally. L3-L4: Normal disc appearance without desiccation. No herniation, protrusion or disc bulging. No ca nal stenosis is present. Foramina are patent bilaterally. L4-L5: Normal disc appearance without desiccation. No herniation, protrusion or disc bulging. No ca nal stenosis is present. Foramina are patent bilaterally. L5-S1: Again noted is a moderate decreased signal ossified compatible degenerative disc disease. Post erior disc bulge with mild effacement ventral thecal sac. No evidence for central stenosis or lateral recess stenosis. Grade 1 anterolisthesis L5 on S1 measuring 4 mm. Lumbar segments are intact. No paraspinal masses are identified. Conus medullaris has a normal appe arance. IMPRESSION: 1. Essentially stable degenerative disc disease and disc bulging at L5-S1 with grade 1 anterolisthesi s. Remaining levels are felt to be within normal limits. Spinal canal is capacious. Normal-appearing conus medullaris.
[2020-08-17 16:24] LABS: Basophils # (A) 0.2 k/uL (0-0.2); Basophils % (A) 1 %; Eosinophils # (A) 0.2 k/uL (0-0.7); Eosinophils % (A) 2 %; HCT 50.3 % (39.0-53.0); HGB 17.4 gm/dL (13.0-17.5); Lymphocytes # (A) 2.9 k/uL (1.0-4.8); Lymphocytes % (A) 25 %; MCH 30.7 pg (25.0-35.0); MCHC 34.6 g/dL (31.0-37.0); MCV 88.7 fL (80.0-100.0); Mean Platelet Volume 6.9; Monocytes # (A) 0.6 k/uL (0-1.0); Monocytes % (A) 5 %; Neutrophils # (A) 7.9 k/uL (1.3-7.7); Neutrophils % (A) 66 %; Platelet Count 355 k/uL (150-450); RBC 5.67 m/uL (4.30-5.90); RDW 14.3 % (11.5-15.5); WBC 11.9 k/uL (3.8-10.6)
[2020-08-17 16:47] LABS: ALT 34 U/L (4-49); AST 50 U/L (17-59); African American GFR (CKD) >90 (>60 ml/min/1.73 sqM); Albumin 4.9 g/dL (3.5-5.0); Alkaline Phosphatase 57 U/L (38-126); Anion Gap 13 mmol/L; Blood Urea Nitrogen 15 mg/dL (9-20); Calcium 9.7 mg/dL (8.4-10.2); Carbon Dioxide 23 mmol/L (22-30); Chloride 101 mmol/L (98-107); Glucose 122 mg/dL (74-99); Non-African American GFR(CKD) >90 (>60 ml/min/1.73 sqM); Sodium 137 mmol/L (137-145); Total Bilirubin 1.3 mg/dL (0.2-1.3); Total Protein 9.4 g/dL (6.3-8.2)
[2020-08-17 16:49] LABS: Potassium 5.4 mmol/L (3.5-5.1)
[2020-08-17] MEDS ORDERED: HYDROmorphone 1 MG/ML 1 ML SYRINGE IVP STA (16:57)
--- NOTE | 2020-08-17 17:08 | P.PN ---
Progress Note - Text Progress Note Date: 08/17/20 Spoke with emergency department provider about patient and his condition. Reviewed MRI images. Patient does have a lumbarized S1 segment which is so named. He does have a grade 1 anterolisthesis L5-S1. There is no severe stenosis in this area. The rest of the lumbar spine does not demonstrate any severe stenotic lesions. There are no fracture dislocations or lesions which are noted. There is no expanding masses. Overall alignment is well-maintained. The visualized portions of the conus are intact with no stenotic lesions in this area. Per report the patient has had several bouts of incontinence of bladder. He has good rectal tone however he has intact sensation in the perineal region. He has good strength in his lower extremity is on upper extremities. He has no other focal deficits noted. This all happened after a fall from standing on the ice onto his buttock region. He has exquisite tenderness in the buttock region per report. I do not see any lesions within the lumbar spine that would be causing his incontinence. We will obtain flexion-extension images to determine if this listhesis is unstable. We will attempt to treat the patient conservatively at this time. Should he gain any bowel or bladder incontinence again or peroneal numbness or tingling he should return immediately for evaluation. It may be advantageous to have a urology consult as well as imaging of his pelvis is sometimes pelvic injuries can cause issues peripherally with nerves to the bladder and sphincters. As long as he and has good strength and good rectal tone and good sensation he can follow-up in office this week.
[2020-08-17 17:09] VITALS: BP 162/96; PULSE 98
== END 2020-08-17 17:09 | disposition home or self-care (01) ==
LOC: EC 14:30
DX: M43.17 Spondylolisthesis, lumbosacral region (principal); M79.18 Myalgia, other site; G40.909 Epilepsy, unspecified, not intractable, without status epilepticus; I10 Essential (primary) hypertension; E78.5 Hyperlipidemia, unspecified; I69.954 Hemiplegia and hemiparesis following unspecified cerebrovascular disease affecting left non-dominant side; Z79.82 Long term (current) use of aspirin; Z79.02 Long term (current) use of antithrombotics/antiplatelets; Z79.899 Other long term (current) drug therapy
CPT/HCPCS: 36415; 51798; 72148; 80053; 85025; 96374; 99284

== ENCOUNTER 2020-09-29 06:41 | Day surgery (SDC) | payer OTHER ==
[2020-09-25 15:16] VITALS: BMI 27.8
[~2020-09-29 06:41] MED LIST: LACTATED RINGERS 1,000 ML IV SCH
[2020-09-29 07:10] VITALS: RESP 16; TEMP 98
[2020-09-29] MEDS ORDERED: LIDOCAINE 1% (10MG/ML) FOR IV START INTRADERMA ONE (07:14)
[2020-09-29] MEDS ORDERED: IOPAMIDOL M200 10 ML VIAL ONE (07:16)
[2020-09-29] MEDS ORDERED: fentaNYL (PF) 50 MCG/ML 2 ML AMP ONE (07:16)
[2020-09-29] MEDS ORDERED: methylPREDNISolone ACETATE 40 MG/ML 1 ML VIAL ONE (07:16)
[2020-09-29] MEDS ORDERED: MIDAZOLAM 2 MG/2 ML VIAL ONE (07:16)
[2020-09-29] MEDS ORDERED: IV FLUID CONTINUATION 1,000 ML IV ONE ×2 (07:41)
--- NOTE | 2020-09-29 07:45 | P.PCN ---
Date of Procedure: 09/29/20 Procedure(s) Performed: PREOPERATIVE DIAGNOSIS: Lumbar radiculopathy . POSTOPERATIVE DIAGNOSIS: Same as preoperative diagnoses. PROCEDURE 1. Transforaminal epidural steroid injection under fluoroscopic guidance at right L5-S1 level. (Fluoroscopy images stored on file in the radiology Department ) 2. Lumbar epidurogram . ANESTHESIA: Local with 1% lidocaine 3 ml , moderate sedation with intravenous Versed 2 mg and fentanyle 100 micrograms. EBL: Minimal PROCEDURE INDICATION: The patient with low back pain and radiculopathy symptoms unresponsive to conservative treatment. PROCEDURE DESCRIPTION / TECHNIQUE: The patient was seen and identified in the preoperative area. Risks, benefits, complications, and alternatives were discussed with the patient. The patient agreed to proceed with the procedure and signed the consent. IV was started, and vital signs were stable. Patient was taken to the OR and time out was completed. The patient was placed in the prone position on procedure table and a pillow was placed under the abdomen to reduce lumbar lordosis. The lumbosacral area was prepped and draped in the usual sterile fashion. Critical pause was taken. Vital signs were closely monitored during the procedure. Conscious sedation was used during the procedure to decrease patient s anxiety. Using oblique fluoroscopy, the chin of the ``Jose Alejandro dog at Right L5-S1 level was identified, and the skin and deeper tissues just below was localized with 1% lidocaine. Subsequently, a 22-gauge 5-inch spinal needle was advanced under a tunneled view fluoroscopic guidance just underneath the chin of the ``Jose Alejandro dog at the right L5-S1 Under lateral fluoroscopy, the needle was then advanced to the posterior border of the interforaminal space. After negative aspiration of CSF and blood and with no paresthesias, 1 mL Isovue 200 contrast dye was injected excellent epidurogram and outlining of the nerve root Subsequently, 3 mL of block solution containing 80 mg Depo-Medrol and 2 mL of 0.9% normal saline PF was injected. Needle was removed . At the end of the procedure, skin was cleansed, and bandages were applied. COMPLICATIONS:none DISPOSITION / PLANS: The patient was placed in a supine position and transferred to the recovery area in a stable condition for observation. There was no evidence of lower extremity motor or sensory deficit after the procedure. Patient was discharged from the recovery room after meeting discharge criteria. Home discharge instructions were given to the patient by the staff. The patient was reexamined prior to discharge.
[2020-09-29 08:03] VITALS: BP 127/72; PULSE 77
--- NOTE | 2020-09-29 10:12 | FL ---
EXAMINATION TYPE: FL guided pain mgmt statistic DATE OF EXAM: 09/29/2020 CLINICAL HISTORY: Low back pain. TECHNIQUE: Fluoroscopy. COMPARISON: None. FINDINGS: Fluoroscopic guidance was provided during pain relief procedure performed by Dr. Riley . A total of 9 seconds of fluoroscopic time was utilized during the procedure and 1 spot images are acquired. Single limits acquired shows needle localization at right L5 level with contrast injection . IMPRESSION: As Above.
== END 2020-09-29 08:10 | disposition home or self-care (01) ==
LOC: ORPAIN 06:41
PROVIDERS: ATTEND Specialist
DX: M51.36 Other intervertebral disc degeneration, lumbar region (principal); M43.17 Spondylolisthesis, lumbosacral region; R56.9 Unspecified convulsions; I25.10 Atherosclerotic heart disease of native coronary artery without angina pectoris; I10 Essential (primary) hypertension; Z79.02 Long term (current) use of antithrombotics/antiplatelets
CPT/HCPCS: 64483; J2250; J1030; J3010; Q9966; 99152

== ENCOUNTER → 2020-11-04 | Outpatient (CLI) | payer OTHER ==
[2020-11-04 09:42] VITALS: BP 140/84; PULSE 96; RESP 16; TEMP 98.1
--- NOTE | 2020-11-04 09:58 | P.PN ---
Subjective Progress Note Date: 11/04/20 This is a follow visit for this 50 years old male with a chronic history of severe low back pain with radiation to the right lower extremity, he is diagnosed with lumbar radiculopathy and lumbar degenerative disc disease and lumbar spondylolisthesis ( grade 1 ), recently we have done a right-sided transforaminal epidural steroid injection at L5-S1, patient reported that he had significant improvement in his pain, his pain improved significantly and the numbness and a tingling sensation improved also, he continued to use Percocet when necessary, he denies any motor or sensory deficit he denies any fever or night sweats he denies any change in the bowel movement or urination, he reported that the pain is constant and increases with activity interference with her quality of life Objective - Vital Signs Vital signs: Vital Signs Temp 98.1 F 11/04/20 09:38 Pulse 96 11/04/20 09:38 Resp 16 11/04/20 09:38 BP 140/84 11/04/20 09:38 Pulse Ox 97 11/04/20 09:38 Intake & Output 11/03/20 11/04/20 11/04/20 18:59 06:59 18:59 Weight 98.883 kg - Exam Physical Examinations : -Constitutiona : Cooperative , not in acute distress . -HEENT : nech : supple , no Lymphadenopathy , normal thyroid size . : eyes : no ptosis , no icterus, no photophobia . - neurologic : Cranial nerve II to XII intact , no focal neurological deffecit . -psychatric : alert , oriented X 3 , appropriate affect , intact judgment and insight . -Lymphatic : no Lymphadenopathy . - musculoskeltal : Lumber spine moter stegnth lower extremities ,thigh and legs 5/5 Right side , 5/5 Left side deep tendon reflexes : normal Knee Jerk , normal ankle Jerk lumber facet Loading Test =positive Right , positive Left Range of motion of the lumbar spine Flexion 30 degrees, extension 10 degrees strait leg raising test = positive at 30 degree on the right side and is negative on the left side Fabere test= positive Right , and positive LT . tenderness over the Sacroiliac joint on the Right , and Left sides MRI of the lumbar spine done in August 2020= lumbar degenerative disc disease, lumbar spondylolisthesis grade 1 Assessment and Plan Plan: Assessment and plan=1-lumbar radiculopathy. 2-lumbar degenerative disc disease. 3-lumbar spondylolisthesis. Patient could benefit from another right-sided transforaminal epidural steroid injection at L5-S1 under fluoroscopy guidance. Patient to hold Plavix for 7 days before the procedure - PQRS measures = - Patient's medications are documented in the chart. -Tobacco use is negative and counseling.Given. -Patient's has not received pneumococcal vaccine. -Advanced care planning discussed, patient not eligible. -Opiate contract not signed. -Pain positive and follow-up visit/procedure is scheduled. -Patient's blood pressure measured [ 140/84 ] , and documented in the record ,and patient will follow up with the primary care. -Patient's weight was measured and body mass index [ 28 ] above the normal limits and counseling was done. and patient instructed to follow-up with the primary care physician. -Patient was not identified as an unhealthy alcohol user Time with Patient: Less than 30
== END ==
LOC: PNWHC3 09:22
PROVIDERS: ATTEND Specialist
DX: M51.16 Intervertebral disc disorders with radiculopathy, lumbar region (principal); M43.16 Spondylolisthesis, lumbar region; Z87.891 Personal history of nicotine dependence
CPT/HCPCS: 99211

== ENCOUNTER 2020-11-24 10:14 | Day surgery (SDC) | payer OTHER ==
[2020-11-23 10:21] VITALS: BMI 27.4
[2020-11-24] MEDS ORDERED: LACTATED RINGERS 1,000 ML IV ONE (10:30)
[2020-11-24] MEDS ORDERED: LIDOCAINE 1% (10MG/ML) FOR IV START INTRADERMA ONE (10:34)
[2020-11-24 10:36] VITALS: TEMP 97.6
[2020-11-24] MEDS ORDERED: MIDAZOLAM 2 MG/2 ML VIAL ONE (10:37)
[2020-11-24] MEDS ORDERED: IOPAMIDOL M200 10 ML VIAL ONE (10:37)
[2020-11-24] MEDS ORDERED: fentaNYL (PF) 50 MCG/ML 2 ML AMP ONE (10:37)
[2020-11-24] MEDS ORDERED: DEXAMETHASONE SOD PHOSPHATE 10 MG/ML 1 ML VIAL ONE (10:37)
[2020-11-24] MEDS ORDERED: LIDOCAINE 1% INJ 10MG/ML (20 ML MDV) ONE (10:37)
[2020-11-24] MEDS ORDERED: IV FLUID CONTINUATION 840 ML IV ONE (10:51)
--- NOTE | 2020-11-24 10:51 | P.PCN ---
Date of Procedure: 11/24/20 Surgeon: Felicitas Garza Pathology: none sent Condition: stable Disposition: PACU Description of Procedure: PREOPERATIVE DIAGNOSIS: Lumbar radiculopathy POSTOPERATIVE DIAGNOSIS: Lumbar radiculopathy PROCEDURE 1. Transforaminal epidural steroid injection under fluoroscopic guidance at L5- S1 on the right side 2. Lumbar epidurogram. SURGEON: Felicitas Garza MD ANESTHESIA: Local with 1% lidocaine; IV moderate conscious sedation with Versed and fentanyl. EBL: Minimal PROCEDURE INDICATION: The patient with low back pain and radiculopathy symptoms unresponsive to conservative treatment. The patient is on Plavix for history of stroke in 2014 and he has stopped taking Plavix 7 days ago. PROCEDURE DESCRIPTION / TECHNIQUE: The patient was seen and identified in the preoperative area. Risks, benefits, complications, and alternatives were discussed with the patient. The patient agreed to proceed with the procedure and signed the consent. IV was started, and vital signs were stable. Patient was taken to the OR and time out was completed. The patient was placed in the prone position on procedure table and a pillow was placed under the abdomen to reduce lumbar lordosis. The lumbosacral area was prepped and draped in the usual sterile fashion. Critical pause was taken. Vital signs were closely monitored during the procedure. Conscious sedation was used during the procedure to decrease patients anxiety. The vertebral body of the lumbar vertebra L5 was squared off by tilting the C-arm cephalad then the C-arm was tilted to the oblique position and the target point was at the 6 o'clock position of the pedicle of L5 then skin and deeper tissues were localized with 1% lidocaine. Subsequently, a 22-gauge 3.5- inch spinal needle was advanced under a tunneled view fluoroscopic guidance just underneath the chin of the Jose Alejandro dog at the . Under lateral fluoroscopy, the needle was then advanced to the middle of the upper one third of the foramen between( L5 and S1). After negative aspiration of CSF and blood and with no paresthesias, 1 mL of omnipaque contrast dye was injected excellent epidurogram and outlining of the L 5 nerve root was identified. Subsequently, 2 mL of block solution containing 10 mg of Decadron and 1 mL of Lidocaine 1% PF was injected. Needle was removed and the same . At the end of the procedure, skin was cleansed, and bandages were applied. COMPLICATIONS: None COMMENTS: DISPOSITION / PLANS: The patient was placed in a supine position and transferred to the recovery area in a stable condition for observation. There was no evidence of lower extremity motor or sensory deficit after the procedure. Patient was discharged from the recovery room after meeting discharge criteria. Home discharge instructions were given to the patient by the staff.
--- NOTE | 2020-11-24 11:40 | FL ---
EXAMINATION TYPE: FL guided pain mgmt statistic DATE OF EXAM: 11/24/2020 CLINICAL HISTORY: Low back pain. TECHNIQUE: Fluoroscopy. COMPARISON: None. FINDINGS: Fluoroscopic guidance was provided during pain relief procedure performed by Dr. Garza . A total of 9 seconds of fluoroscopic time was utilized during the procedure and two spot images are acquired. Images acquired shows needle localization near the lumbosacral junction with contrast inj ection. IMPRESSION: As Above.
[2020-11-24 11:42] VITALS: RESP 20
[2020-11-24 11:44] VITALS: BP 140/70; PULSE 88
== END 2020-11-24 11:19 | disposition home or self-care (01) ==
LOC: ORPAIN 10:14
PROVIDERS: ATTEND Anesthesiology
DX: M54.16 Radiculopathy, lumbar region (principal); I25.10 Atherosclerotic heart disease of native coronary artery without angina pectoris; Z79.02 Long term (current) use of antithrombotics/antiplatelets
CPT/HCPCS: 64483; J2250; J1100; J2001; J3010; Q9966; 99152

== ENCOUNTER → 2021-02-05 | Outpatient (CLI) | payer OTHER ==
--- NOTE | 2021-02-05 12:43 | XR ---
EXAMINATION TYPE: XR shoulder complete RT DATE OF EXAM: 02/05/2021 CLINICAL HISTORY: pain TECHNIQUE: Three views of the right shoulder are obtained. COMPARISON: None FINDINGS: There is no acute fracture/dislocation evident. The acromioclavicular and glenohumeral niki int spaces appear moderately narrowed. The visualized ribs are intact and unremarkable. IMPRESSION: 1. There is no acute fracture or dislocation. ICD 10 NO FRACTURE, INITIAL EVALUATION
--- NOTE | 2021-02-05 12:51 | XR ---
EXAMINATION TYPE: XR abdomen acute w cxr DATE OF EXAM: 02/05/2021 COMPARISON: NONE HISTORY: Pain TECHNIQUE: Single view of the chest and 2 views of the abdomen are submitted. FINDINGS: Single view of the chest fails demonstrate evidence for acute pulmonary disease. There is no evidence for pneumoperitoneum. The bowel gas pattern is unremarkable as there is air throughout nondilated small and large bowel. No sizeable air fluid levels.No mass effects are seen. Left-sided nephrolithiasis redemonstrated with 3 calculi seen the largest of which measures 1.6 cm. IMPRESSION: 1. Essentially stable left-sided nephrolithiasis. 2. Bowel gas pattern is unremarkable.
== END | disposition home or self-care (01) ==
LOC: RADXRMAIN 12:14
PROVIDERS: ATTEND Nurse Practitioner
DX: M25.811 Other specified joint disorders, right shoulder (principal); N20.0 Calculus of kidney
CPT/HCPCS: 74022

== ENCOUNTER → 2021-02-09 | Outpatient (CLI) | payer OTHER ==
[2021-02-09 18:43] LABS: Basophils % (A) 1.2 %; Eosinophils # (A) 0.19 X 10*3/uL (0.04-0.35); Eosinophils % (A) 2.3 %; HCT 44.9 % (39.6-50.0); HGB 14.3 g/dL (13.0-17.0); Lymphocytes # (A) 3.49 X 10*3/uL (0.90-5.00); Lymphocytes % (A) 42.2 %; MCH 29.7 pg (27.0-32.0); MCHC 31.8 g/dL (32.0-37.0); MCV 93.2 fL (80.0-97.0); Mean Platelet Volume 9.6 fL (9.5-12.2); Monocytes # (A) 1.09 X 10*3/uL (0.20-1.00); Monocytes % (A) 13.2 %; Neutrophils # (A) 3.36 X 10*3/uL (1.80-7.70); Neutrophils % (A) 40.6 %; Platelet Count 306 X 10*3/uL (140-440); RBC 4.82 X 10*6/uL (4.40-5.60); RDW 14.7 % (11.5-14.5); WBC 8.27 X 10*3/uL (4.50-10.00)
[2021-02-09 22:37] LABS: African American GFR (CKD) 82.4 (60.0-200.0); Albumin 4.5 g/dL (3.80-4.90); Albumin/Globulin Ratio 1.32 (1.60-3.17); Anion Gap 12.3 mmol/L (4.00-12.00); BUN/Creat Ratio 11.67 Ratio (12.00-20.00); Carbon Dioxide 21.7 mmol/L (21.6-31.8); Globulin 3.4 g/dL (1.6-3.3); Non-African American GFR(CKD) 71.1 (60.0-200.0); Potassium 4.3 mmol/L (3.5-5.5); Total Bilirubin 0.4 mg/dL (0.3-1.2); Total Protein 7.9 g/dL (6.2-8.2)
== END | disposition home or self-care (01) ==
LOC: LABWHC1 13:31
PROVIDERS: ATTEND Nurse Practitioner
DX: I10 Essential (primary) hypertension (principal)
CPT/HCPCS: 36415; 80053; 85025

== ENCOUNTER → 2021-09-21 | Outpatient (CLI) | payer BC ==
--- NOTE | 2021-09-21 11:12 | US ---
EXAMINATION TYPE: US venous doppler duplex LE DATE OF EXAM: 09/21/2021 10:56 AM COMPARISON: NONE CLINICAL HISTORY: 51-year-old male I83.893 VARICOSE VEINS OF BI LOW EXTREM W OTHER COMPLICATION. Pain . No redness or swelling. SIDE PERFORMED: Bilateral TECHNIQUE: The lower extremity deep venous system is examined utilizing real time linear array sonog heather with graded compression, doppler sonography and color-flow sonography. FINDINGS: VESSELS IMAGED: Common Femoral Vein Deep Femoral Vein Greater Saphenous Vein * Femoral Vein Popliteal Vein Small Saphenous Vein * Proximal Calf Veins (* superficial vessels) Right Leg: Negative for DVT Left Leg: Negative for DVT IMPRESSION: No evidence for DVT within the bilateral lower extremities imaged from the groin to the upper calf.
== END | disposition home or self-care (01) ==
LOC: RADUSWWP 10:30
PROVIDERS: ATTEND Family Medicine
DX: I83.893 Varicose veins of bilateral lower extremities with other complications (principal)
CPT/HCPCS: 93970

== ENCOUNTER → 2021-09-21 | Outpatient (CLI) | payer BC ==
--- NOTE | 2021-09-21 15:18 | XR ---
EXAMINATION TYPE: XR ankle complete RT DATE OF EXAM: 09/21/2021 COMPARISON: NONE HISTORY: 51-year-old male M79.604 Pain in Rt Leg TECHNIQUE: 3 views FINDINGS: Ankle mortise is congruent with preservation of the distal tibiofibular overlap. Talar dome is intact . No acute fracture, subluxation, or dislocation. Subtalar joint alignment. Smooth delineation to the Achilles tendon. Bipartite os peroneum. IMPRESSION: No acute osseous abnormality seen.
== END | disposition home or self-care (01) ==
LOC: RADXRMAIN 15:01
PROVIDERS: ATTEND Nurse Practitioner Family
DX: M79.604 Pain in right leg (principal)

== ENCOUNTER → 2022-06-20 | Outpatient (CLI) | payer BC, OTHER ==
[2022-06-20 10:39] VITALS: BP 148/97; PULSE 78; RESP 18; TEMP 98.4
--- NOTE | 2022-06-22 07:40 | P.PAINPG ---
PQRS Measure Charge Sheet Comment: A 51 yr old male w fiance at side with a history of severe and chronic LBP secondary to lumbar DDD and spondylosis with facet arthropathy without myelopathy presents today for LBP. Pt states he received 95% pain relief w last R TFESI L5-S1 x 15 mo s/p procedure. Pain level is currently at 8 /10 in intensity, constant, localized in the R lower lumbar spine, sharp in character w shooting towards the RLE. Pain is provoked by sitting for periods of 20 min or more, lifting. Pain is alleviated with injections, hot showers, medications (Ibu), topicals and rest. Interventional pain procedures completed include R TFESI L5-S1 x2 (November 2020) Patient is currently on Ibu Patient denies any side effects of the medication(s), denies excessive drowsiness or sleepiness, denies suicidal ideation and reports that the current pain medication is helping to control the pain and improve activities of daily living. Patient denies any motor or sensory deficits. Patient denies any fever or night sweats, denies any change in the bowel movements or urination. Physical Examination: -Constitutional: Cooperative. Not in acute distress . - Neurologic: Cranial nerve II to XII intact. No focal neurological deficits. - Psychatric: Alert & oriented x 3. Matching mood & appropriate affect. Judgment and insight intact. - Musculoskeletal: Cervical spine: Muscle bulk/ tone/ strength in the bilateral upper extremities normal Vertebral body tenderness to palpation over Spurling test positive Distraction test positive Facet loading test positive Thoracic spine Muscle bulk / tone/ strength in the bilateral paraspinal muscles normal Vertebral body tender to palpation over Facet loading test positive Lumbar spine: Motor bulk/ tone/ strength lower extremities , thigh and legs : 5/5 Deep tendon reflexes : Normal Knee Jerk. Normal Ankle Jerk . Vertebral body tenderness to palpation over L5 Lumbar Facet Loading Test positive Straight Leg Raise: positive at 30 degrees right side/ left side Gaenslen's Test positive Sacral spine : Severe tenderness over the Sacroiliac joint: right side / left side Range of motion: Flexion of the lumbar spine <60 degrees Range of motion: Extension of the lumbar spine <20 degrees Gaenslen's Test positive Vinicio test: positive right side / left side Thigh Thrust Test Sacral Thrust Test Assessment and plan: Chronic low back pain secondary to lumbar degenerative disc disease, spondylosis with facet arthropathy without myelopathy Recommendation of R TFESI L5-S1. May need a series of injections, up to 3 within a six-month timeframe, for optimal pain relief. Risks, benefits of procedure discussed and pt verbalized understanding. Admits to anticoagulant use or medical history of diabetes. Medical clearance from Dr. Heath for Plavix sought. Percocet 5/325mg #18 NR. Use, side effects and adverse reactions discussed. Safe storage discussed. Patient acknowledged understanding. All patient questions answered I have spent less than 30 minutes on patient care today. Dr Riley was available by phone for the evaluation of this patient. The time was used to review the medical records including relevant urine studies and Prescription history (MAPs), review of the available imaging, evaluation and examination of the patient, coordination of care with the medical staff and if applicable referring physicians, as well as creation of the medical record PQRS Narrative: Smoking Status Former smoker Hx Alcohol Use (MH) No Home Medications: Ambulatory Orders levETIRAcetam [Keppra] 1,000 mg PO Q12HR 10/30/15 Clopidogrel [Plavix] 75 mg PO DAILY 06/02/16 Losartan [Cozaar] 50 mg PO BID 02/13/17 Atorvastatin [Lipitor] 40 mg PO DAILY 11/24/17 amLODIPine [Norvasc] 10 mg PO DAILY 11/24/17 Aspirin EC [Ecotrin Low Dose] 81 mg PO DAILY 04/06/18 Escitalopram [Lexapro] 20 mg PO DAILY 09/25/20 oxyCODONE-APAP 10-325MG [Percocet 10-325 mg] 1 tab PO Q8HR PRN 09/25/20 Cholecalciferol [Vitamin D3 (25 Mcg = 1000 Iu)] 50 mcg PO DAILY 11/23/20 hydrALAZINE HCL [Apresoline] 25 mg PO BID 11/23/20 Controlled Substance Measures - Controlled Substance Measures Is patient prescribed a controlled substance at discharge?: Yes When asked, does pt state using other controlled substances?: No If prescribed controlled substance>3 days was MAPS reviewed?: Prescribed <3 Days If Rx opioid, was Start Talking consent form obtained?: Yes If opioid is for acute pain is fill amount 7 days or less?: Yes Was information provided regarding opioid addiction?: Yes
== END ==
LOC: PNWHC3 09:31
PROVIDERS: ATTEND Specialist
DX: M51.36 Other intervertebral disc degeneration, lumbar region (principal); M47.816 Spondylosis without myelopathy or radiculopathy, lumbar region; G89.29 Other chronic pain; Z87.891 Personal history of nicotine dependence; Z79.02 Long term (current) use of antithrombotics/antiplatelets; Z79.82 Long term (current) use of aspirin
CPT/HCPCS: 99211

== ENCOUNTER 2022-07-27 16:49 | Emergency (ER) | payer OTHER ==
[2022-07-27 16:58] VITALS: TEMP 97.5
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
[2022-07-27 18:25] LABS: Basophils # (A) 0.1 k/uL (0-0.2); Basophils % (A) 1 %; Eosinophils # (A) 0.3 k/uL (0-0.7); Eosinophils % (A) 3 %; HCT 45.9 % (39.0-53.0); HGB 15.4 gm/dL (13.0-17.5); Lymphocytes % (A) 28 %; MCH 28.9 pg (25.0-35.0); MCHC 33.5 g/dL (31.0-37.0); Mean Platelet Volume 6.8; Monocytes # (A) 0.6 k/uL (0-1.0); Monocytes % (A) 6 %; Neutrophils # (A) 6.2 k/uL (1.3-7.7); Neutrophils % (A) 59 %; Platelet Count 357 k/uL (150-450); RBC 5.33 m/uL (4.30-5.90); RDW 14.5 % (11.5-15.5); WBC 10.6 k/uL (3.8-10.6)
[2022-07-27 18:37] LABS: ALT 26 U/L (4-49); AST 24 U/L (17-59); African American GFR (CKD) >90 (>60 ml/min/1.73 sqM); Albumin 4.2 g/dL (3.5-5.0); Alkaline Phosphatase 86 U/L (38-126); Anion Gap 8 mmol/L; Blood Urea Nitrogen 18 mg/dL (9-20); Calcium 9.2 mg/dL (8.4-10.2); Carbon Dioxide 26 mmol/L (22-30); Chloride 105 mmol/L (98-107); Glucose 96 mg/dL (74-99); Non-African American GFR(CKD) >90 (>60 ml/min/1.73 sqM); Potassium 4.1 mmol/L (3.5-5.1); Sodium 139 mmol/L (137-145); Total Bilirubin 0.3 mg/dL (0.2-1.3); Total Protein 7.7 g/dL (6.3-8.2)
[2022-07-27 19:55] VITALS: BP 145/87; PULSE 90; RESP 16
== END 2022-07-27 19:55 | disposition left against medical advice (07) ==
LOC: EC 16:49
DX: R39.15 Urgency of urination (principal); R31.9 Hematuria, unspecified; E78.5 Hyperlipidemia, unspecified; I10 Essential (primary) hypertension; F41.9 Anxiety disorder, unspecified; Z87.891 Personal history of nicotine dependence; Z53.29 Procedure and treatment not carried out because of patient's decision for other reasons; Z86.73 Personal history of transient ischemic attack (TIA), and cerebral infarction without residual deficits; Z79.82 Long term (current) use of aspirin; Z79.899 Other long term (current) drug therapy; Z79.02 Long term (current) use of antithrombotics/antiplatelets
CPT/HCPCS: 36415; 51798; 80053; 85025; 99283

== ENCOUNTER 2022-10-27 09:02 | Day surgery (SDC) | payer BC ==
[2022-10-21 13:23] VITALS: BMI 27.8
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
[~2022-10-27 09:02] MED LIST changes: +ACETAMINOPHEN TAB 500 MG TAB PO STA; +DEXAMETHASONE SOD PHOSPHATE 4 MG/ML 1 ML VIAL IV ONE; +GABAPENTIN 300 MG CAP PO STA; +HEPARIN SODIUM,PORCINE/PF 5,000 UNIT/0.5 ML SYRINGE SQ PRN; +ONDANSETRON 4 MG/2 ML VIAL IVP ONE; +TAMSULOSIN 0.4 MG CAP.ER.24H PO STA
[2022-10-27] MEDS ORDERED: MIDAZOLAM 2 MG/2 ML VIAL IVP ONE (12:53)
[2022-10-27] MEDS ORDERED: GLYCOPYRROLATE 0.2 MG/ML 2 ML VIAL ONE (13:00)
[2022-10-27] MEDS ORDERED: SUCCINYLCHOLINE CHLORIDE 200 MG/10 ML VIAL IV ONE (13:00)
[2022-10-27] MEDS ORDERED: PHENYLEPHRINE-0.9% NACL SYG 1,000 MCG/10 ML SYRINGE ONE (13:00)
[2022-10-27] MEDS ORDERED: DEXAMETHASONE SOD PHOSPHATE 4 MG/ML 1 ML VIAL ONE (13:00)
[2022-10-27] MEDS ORDERED: fentaNYL (PF) 50 MCG/ML 2 ML AMP ONE (13:00)
[2022-10-27] MEDS ORDERED: ROPIVACAINE 5 MG/ML 30 ML VIAL ONE (13:00)
[2022-10-27] MEDS ORDERED: PROPOFOL 10 MG/ML 20 ML VIAL IV ONE (13:00)
[2022-10-27] MEDS ORDERED: HEPARIN SODIUM,PORCINE 5,000 UNIT/ML 1 ML VIAL ONE (13:00)
[2022-10-27] MEDS ORDERED: LIDOCAINE 2% INJ 20 MG/ML (2 ML VIAL) ONE (13:00)
[2022-10-27] MEDS ORDERED: HYDROmorphone (PF) 1 MG/ML ONE (13:00)
[2022-10-27] MEDS ORDERED: SODIUM CHLORIDE 0.9% (PF) 10 ML VIAL ONE (13:00)
[2022-10-27] MEDS ORDERED: NEOSTIGMINE 1 MG/ML 10 ML VIAL ONE (13:00)
[2022-10-27] MEDS ORDERED: ROCURONIUM 10 MG/ML (5 ML VIAL) IV ONE (13:00)
[2022-10-27] MEDS ORDERED: MIDAZOLAM 2 MG/2 ML VIAL ONE (13:00)
[2022-10-27] MEDS ORDERED: BUPIVACAIN-EPI 0.25%-1:200,000 30 ML VIAL SQ ONE (13:33)
[2022-10-27 13:54] LABS: ALT 28 U/L (4-49); AST 27 U/L (17-59); African American GFR (CKD) >90 (>60 ml/min/1.73 sqM); Albumin 4.1 g/dL (3.5-5.0); Alkaline Phosphatase 85 U/L (38-126); Anion Gap 8 mmol/L; Blood Urea Nitrogen 13 mg/dL (9-20); Calcium 8.8 mg/dL (8.4-10.2); Carbon Dioxide 24 mmol/L (22-30); Chloride 107 mmol/L (98-107); Glucose 100 mg/dL (74-99); Non-African American GFR(CKD) >90 (>60 ml/min/1.73 sqM); Potassium 4.4 mmol/L (3.5-5.1); Sodium 139 mmol/L (137-145); Total Bilirubin 0.3 mg/dL (0.2-1.3); Total Protein 7.7 g/dL (6.3-8.2)
[2022-10-27 14:15] LABS: Basophils # (A) 0.1 k/uL (0-0.2); Basophils % (A) 1 %; Eosinophils # (A) 0.2 k/uL (0-0.7); Eosinophils % (A) 3 %; HCT 46.6 % (39.0-53.0); HGB 15.6 gm/dL (13.0-17.5); Lymphocytes # (A) 2.6 k/uL (1.0-4.8); Lymphocytes % (A) 29 %; MCHC 33.4 g/dL (31.0-37.0); MCV 89.8 fL (80.0-100.0); Mean Platelet Volume 7.9; Monocytes # (A) 0.7 k/uL (0-1.0); Monocytes % (A) 7 %; Neutrophils # (A) 5.2 k/uL (1.3-7.7); Neutrophils % (A) 58 %; Platelet Count 429 k/uL (150-450); RBC 5.19 m/uL (4.30-5.90); RDW 14.2 % (11.5-15.5)
[2022-10-27] MEDS: HYDROmorphone 0.5 MG/0.5 ML SYRINGE IVP PRN ×4 (14:33→15:00)
[2022-10-27 14:40] VITALS: TEMP 97.8
[2022-10-27] MEDS ORDERED: MEPERIDINE 50 MG/ML SYRINGE IVP ONE (15:12)
--- NOTE | 2022-10-27 15:12 | P.OP ---
Date of Procedure: 10/27/22 Description of Procedure: SURGEON: KHAI TILLEY MD PREOPERATIVE DIAGNOSES: 1. Initial right inguinal pain 2. History of abnormal EKG 3. Abnormal CT bilateral inguinal hernias 4. Hypertensive heart disease 5. Hyperlipidemia 6. Generalized tenderness 7. Obesity due to excess calories, BMI 32.0 8. Chronic platelet use 9. Seizure disorder POSTOPERATIVE DIAGNOSES: 1. Initial right inguinal pain 2. History of abnormal EKG 3. Abnormal CT bilateral inguinal hernias 4. Hypertensive heart disease 5. Hyperlipidemia 6. Generalized tenderness 7. Obesity due to excess calories, BMI 32.0 8. Chronic platelet use 9. Seizure disorder 10. Subfascial right inguinal lipoma, 2 cm OPERATION: 1. Robotic-assisted da Doris Xi laparoscopic right inguinal hernia repair with mesh, 11.[address] 2. Excision of subfascial right inguinal lipoma, 2 cm ANESTHESIA: General with local anesthetic ESTIMATED BLOOD LOSS: 5 mL. SPECIMENS REMOVED: Right inguinal hernia lipoma COMPLICATIONS: None. FINDINGS: 1. Nyhus type II direct inguinal hernia, reducible, initial, 1 cm, right 2. Non-absorbable 2-0 VLOC used 3. Subfascial right inguinal lipoma, 2 cm 4. No hernia of the left groin INDICATIONS: The patient is a 52-year-old gentleman who presents with history of right groin pain. He had abnormal computed tomography scan for bilateral inguinal hernia. Now presents for definitive surgical intervention. Laparoscopic versus open and robotic approaches were discussed. Benefits and risks including bleeding, infection, injury to the vas deferens as well as sterility and chronic groin pain were reviewed. Placement of mesh was also described. Informed consent was obtained. DESCRIPTION: In the preoperative area, the patient was marked with indelible marker along the inguinal hernia. The patient was brought to the operating room and initially laid in supine position. The abdomen had been prepped and draped in standard sterile fashion. Ioban draping was also placed. Prior to incision, a timeout protocol was confirmed with surgical team regarding patient's name including procedures to be performed and location along the right groin. Initial positioning for the robotic assisted ports were selected whereby 20 cm superior to the target anatomy, 0 degree 5 mm laparoscopic trocar entry was performed at the left upper quadrant. The abdomen was insufflated to 15 mmHg which he had tolerated well. Diagnostic laparoscopy demonstrated a indirect inguinal hernia along the right groin. Next, along the epigastrium, 8 mm robot trocar was placed. An 8-mm robotic trocar was placed under direct visualization at the right upper quadrant. An 8 mm port was placed at the left upper quadrant. All trocars were positioned between 8 to 10-cm apart from each other. An accessory trocar was placed on the right lateral abdominal wall 12 mm. The [employer] XI robot was primed, draped, prepared for docking along the right side of the patient. The patient was placed in Trendelenberg position 21-degrees. I then went to the [employer] Xi console. The review assistant was at bedside for exchange of the robot arms and equipment. No hernia was identified along the left groin. The right inguinal hernia sac was evaginated whereby the peritoneum was scored using Endo scissors with cautery. Once completely reduced into the abdominal cavity, the peritoneal sac of the hernia was stripped along an direct inguinal hernia and a subfascial inguinal lipoma, 2-cm and sac was resected and then passed off for further pathological analysis. Using nonabsorbable 2-0 VLOC, the peritoneal defect of the right inguinal hernia site was closed using a pursestring suture. The defect was found to be completely closed with complete repair of the right direct inguinal hernia was confirmed. As an onlay, an 11.[address] mesh by [employer] was initially cut in half and entered into the abdominal cavity via the 8 mm trocar. The mesh was tacked to the pelvis using absorbable 2-0 VLOC 9-inch length sutures. The robot was undocked from the patient's bedside. I then rescrubbed into the case. Insufflation was released from the abdominal cavity and all instruments were removed from the abdominal cavity. The rest of incisions were reapproximated using 4-0 Monocryl in a running subcuticular fashion. Incisions were cleansed using dilute hydrogen peroxide. Liquid glue was applied to the skin. At the end of the procedure, the needle, sponge and instrument counts had been verified correct by the surgical manager. The patient had tolerated the procedure well and was taken to the postanesthesia care unit in stable condition. Plan - Discharge Summary Discharge Rx Participant: Yes New Discharge Prescriptions: Continue Clopidogrel [Plavix] 75 mg PO DAILY Losartan [Cozaar] 50 mg PO BID amLODIPine [Norvasc] 10 mg PO QAM Aspirin EC [Ecotrin Low Dose] 81 mg PO DAILY Escitalopram [Lexapro] 20 mg PO QAM Cholecalciferol [Vitamin D3 (25 Mcg = 1000 Iu)] 50 mcg PO DAILY Rosuvastatin Calcium 20 mg PO DAILY hydrALAZINE HCL [Apresoline] 25 mg PO BID Discharge Medication List Clopidogrel [Plavix] 75 mg PO DAILY 06/02/16 [History] Losartan [Cozaar] 50 mg PO BID 02/13/17 [History] amLODIPine [Norvasc] 10 mg PO QAM 11/24/17 [History] Aspirin EC [Ecotrin Low Dose] 81 mg PO DAILY 04/06/18 [History] Escitalopram [Lexapro] 20 mg PO QAM 09/25/20 [History] Cholecalciferol [Vitamin D3 (25 Mcg = 1000 Iu)] 50 mcg PO DAILY 11/23/20 [History] hydrALAZINE HCL [Apresoline] 25 mg PO BID 11/23/20 [History] Rosuvastatin Calcium 20 mg PO DAILY 10/21/22 [History] Follow up Appointment(s)/Referral(s): Khai Tilley MD [STAFF PHYSICIAN] - 11/01/22 8:00 am (TELEHEALTH - DR TILLEY CALLS YOU BETWEEN 8 am to 5pm) Patient Instructions/Handouts: *[facility] - Anesthesia Discharge Instructions, *[facility] - Managing Your Pain After Surgery Without Opioids, Laparoscopic Herniorrhaphy (DC), Inguinal Hernia Repair (DC) Activity/Diet/Wound Care/Special Instructions: RESUME PLAVIX, TOMORROW Monday10/28/22 DR HUMBERTO CALLS YOU AT HOME HUMBERTO - calls you, please confirm your telephone number Using antibacterial soap. No lifting over 10 pounds 2 weeks, November 10November shower. No bathtub soaks for 2 weeks, November 10 Use ice along incisions for today to prevent swelling. Take tylenol, aleve/ibuprofen, simethicone scheduled for 3 days for best pain relief per NEUROLOGY-NO DRIVING AND O OPERATION OF ANY HEAVY MACHINERY UNTIL SEEN BY OWN NEUROLOGIST , ZACARIAS GALVEZ PER ORDERS STARTING TOMORROW Discharge Disposition: HOME SELF-CARE
[2022-10-27] MEDS: LORazepam 2 MG/ML INJ IV ONE ×2 (15:24→15:40)
[2022-10-27] MEDS ORDERED: levETIRAcetam IV 1,000 MG in SALINE 1 100ML.BAG IVPB STA (16:43)
[2022-10-27] MEDS ORDERED: LACTATED RINGERS 1,000 ML IV ONE (18:12)
[2022-10-27] MEDS ORDERED: NALOXONE 0.4 MG/ML 1 ML VIAL IV PRN (18:20)
[2022-10-27] MEDS ORDERED: HYDROmorphone 1 MG/ML 1 ML SYRINGE IVP PRN (18:20)
[2022-10-27] MEDS ORDERED: TAMSULOSIN 0.4 MG CAP.ER.24H PO STA (18:21)
[2022-10-27] MEDS ORDERED: oxyCODONE-APAP 7.5-325MG 1 EACH TAB PO PRN (18:21)
[2022-10-27] MEDS ORDERED: oxyCODONE-APAP 7.5-325MG 1 EACH TAB PO ONE (18:41)
[2022-10-27] MEDS ORDERED: TAMSULOSIN 0.4 MG CAP.ER.24H PO ONE (18:42)
[2022-10-27 18:49] VITALS: RESP 16
[2022-10-27 19:17] VITALS: BP 121/78; PULSE 75
[2022-10-27] MEDS ORDERED: LOSARTAN 50 MG TAB PO SCH (21:00)
[2022-10-27] MEDS ORDERED: hydrALAZINE HCL 25 MG TAB PO SCH (21:00)
--- NOTE | 2022-10-27 22:45 | P.PN ---
Progress Note - Text Progress Note Date: 10/27/22 Findings patient had the tip all seizure in the postoperative care unit. Neurology consultation obtained. Careful postoperative narcotics due to recent seizure. No narcotic pain plan described operatively and postoperatively using Tylenol. Discharge following spontaneous voiding with option of overnight stay for postoperative pain management.
[2022-10-28] MEDS ORDERED: CHOLECALCIFEROL 25 MCG (1000 IU) TABLET PO SCH (09:00)
[2022-10-28] MEDS ORDERED: NON FORMULARY DRUG (Aspirin Ec 81 MG Tablet.Dr) PO SCH (09:00)
[2022-10-28] MEDS ORDERED: amLODIPine 5 MG TAB PO SCH (09:00)
[2022-10-28] MEDS ORDERED: CLOPIDOGREL 75 MG TAB PO SCH (09:00)
[2022-10-28] MEDS ORDERED: ESCITALOPRAM 10 MG TAB PO SCH (09:00)
[2022-10-28] MEDS ORDERED: NON FORMULARY DRUG (Rosuvastatin Calcium [Rosuvastatin Calcium] 20 MG Tablet) PO SCH (09:00)
--- NOTE | 2022-10-28 12:04 | P.ANPRN ---
Procedure Note - Anesthesia - Nerve Block Performed Bilateral Erector Spinae Single Time Out Performed: Yes Date of Procedure: 10/27/22 Procedure Start Time: 12:52 Procedure Stop Time: 12:59 Location of Patient: PreOp Indication: Acute Post-Operative Pain, Requested by Surgeon Sedation Type: Sedate with meaningful contact maintained Preparation: Sterile Prep Position: Prone Needle Types: Pajunk Needle Gauge: 21 Ultrasound used to visualize needle placement: Yes Ultrasound used to observe medication spread: Yes Blood Aspirated: No Pain Paresthesia on Injection Noted: No Resistance on Injection: Normal Image Stored and Saved: Yes Events: Uneventful and Well Tolerated (Ropivacaine 0.5% 15 mL plus normal saline 10 mL plus dexamethasone 4 mg given bilaterally at L1)
== END 2022-10-27 19:20 | disposition home or self-care (01) ==
LOC: OR 09:02
PROVIDERS: ATTEND Surgery Plastic and Reconstructive Surgery
DX: K40.20 Bilateral inguinal hernia, without obstruction or gangrene, not specified as recurrent (principal); I11.9 Hypertensive heart disease without heart failure; E78.5 Hyperlipidemia, unspecified; Z68.32 Body mass index [BMI] 32.0-32.9, adult; E66.09 Other obesity due to excess calories; G40.909 Epilepsy, unspecified, not intractable, without status epilepticus; Z79.899 Other long term (current) drug therapy; Z79.82 Long term (current) use of aspirin; Z86.73 Personal history of transient ischemic attack (TIA), and cerebral infarction without residual deficits; Z98.890 Other specified postprocedural states; F41.9 Anxiety disorder, unspecified; Z87.891 Personal history of nicotine dependence; Z79.02 Long term (current) use of antithrombotics/antiplatelets
CPT/HCPCS: 64999; 76942; 88304; 80053; 85025; 49650; C1781; J2250; J0330; J2060; J1644; J1100; J2710; J2175; J0690; J2405; J3010; J1170 ×2; J2795; J2370; J2704; J1953; J2001

== ENCOUNTER 2022-11-04 14:56 | Observation (INO) | payer BC ==
[2022-11-04] MEDS ORDERED: MORPHINE SULFATE 4 MG/ML SYRINGE IVP STA ×2 (16:10→17:49)
[2022-11-04] MEDS ORDERED: SODIUM CHLORIDE 0.9% 1,000 ML IV ONE (16:10)
[2022-11-04] MEDS ORDERED: ONDANSETRON 4 MG/2 ML VIAL IVP STA (16:10)
[2022-11-04 17:10] LABS: Basophils % (A) 0 %; Eosinophils # (A) 0.3 k/uL (0-0.7); Eosinophils % (A) 2 %; HCT 42.1 % (39.0-53.0); Lymphocytes # (A) 2.4 k/uL (1.0-4.8); Lymphocytes % (A) 19 %; MCHC 33.3 g/dL (31.0-37.0); MCV 87.1 fL (80.0-100.0); Mean Platelet Volume 7.5; Monocytes # (A) 0.7 k/uL (0-1.0); Monocytes % (A) 6 %; Neutrophils # (A) 8.9 k/uL (1.3-7.7); Neutrophils % (A) 70 %; Platelet Count 337 k/uL (150-450); RBC 4.83 m/uL (4.30-5.90); RDW 14.2 % (11.5-15.5); WBC 12.8 k/uL (3.8-10.6)
[2022-11-04 17:20] LABS: ALT 25 U/L (4-49); AST 27 U/L (17-59); African American GFR (CKD) >90 (>60 ml/min/1.73 sqM); Albumin 3.9 g/dL (3.5-5.0); Alkaline Phosphatase 89 U/L (38-126); Anion Gap 11 mmol/L; Blood Urea Nitrogen 18 mg/dL (9-20); Calcium 8.7 mg/dL (8.4-10.2); Carbon Dioxide 24 mmol/L (22-30); Chloride 101 mmol/L (98-107); Glucose 89 mg/dL (74-99); Non-African American GFR(CKD) >90 (>60 ml/min/1.73 sqM); Potassium 3.8 mmol/L (3.5-5.1); Sodium 136 mmol/L (137-145); Total Bilirubin 0.8 mg/dL (0.2-1.3); Total Protein 7.3 g/dL (6.3-8.2)
[2022-11-04 17:21] LABS: INR 0.9 (<1.2); Partial Thromboplastin Time 26.6 sec (22.0-30.0)
--- NOTE | 2022-11-04 17:29 | US ---
EXAMINATION TYPE: US venous doppler duplex LE LT DATE OF EXAM: 11/04/2022 5:15 PM COMPARISON: NONE CLINICAL INDICATION: Male, 52 years old with history of Left leg pain/swelling; Left leg swelling/pa in. No hx of DVT. Patient is on Plavix. SIDE PERFORMED: Left TECHNIQUE: The lower extremity deep venous system is examined utilizing real time linear array sonog heather with graded compression, doppler sonography and color-flow sonography. VESSELS IMAGED: Common Femoral Vein Deep Femoral Vein Greater Saphenous Vein * Femoral Vein Popliteal Vein Small Saphenous Vein * Proximal Calf Veins (* superficial vessels) Left Leg: No evidence of DVT. IMPRESSION: No evidence for deep vein thrombosis of the left lower extremity.
[2022-11-04 17:42] LABS: C Reactive Protein 3.5 mg/dL (<1.0)
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
[2022-11-04] MEDS ORDERED: VANCOMYCIN IV PER PHARMACY 1 EACH MISC MISCELLANE PRN (17:57)
[2022-11-04] MEDS ORDERED: ONDANSETRON 4 MG/2 ML VIAL IVP PRN (17:58)
[2022-11-04] MEDS ORDERED: NALOXONE 0.4 MG/ML 1 ML VIAL IV PRN (17:58)
[2022-11-04] MEDS ORDERED: VANCOMYCIN 1,750 MG in SODIUM CHLORIDE 0.9% 500 ML 500 ML IVPB STA (18:08)
[2022-11-04 18:26] LABS: Erythrocyte Sedimentation Rate 30 mm/hr (0-15)
[2022-11-04] MEDS ORDERED: LORazepam 2 MG/ML INJ IV STA (19:37)
[2022-11-04] MEDS ORDERED: HYDROmorphone 0.5 MG/0.5 ML SYRINGE IVP STA (23:09)
--- NOTE | 2022-11-04 23:58 | XR ---
EXAMINATION TYPE: XR knee complete LT DATE OF EXAM: 11/04/2022 10:54 PM INDICATION: Patient age:Male; 52 years old; Reason for study: Knee pain/swelling; COMPARISON: None. TECHNIQUE: The Right knee(s) was examined in Frontal, lateral and oblique projections. FINDINGS: No evidence of any acute osseous pathology, soft tissue swelling, or joint effusion is no wyatt. Anterior lower thigh skin thickening with edema best appreciated on lateral view. No subcutaneou s lucencies to suggest abscess. IMPRESSION: 1. No acute osseous pathology. 2. Soft tissue edema on the anterior aspect of the lower left thigh. No subcutaneous gas to suggest a bscess.
[2022-11-05] MEDS ORDERED: traMADol 50 MG TAB PO PRN (02:28)
[2022-11-05] MEDS ORDERED: CYCLOBENZAPRINE 10 MG TAB PO PRN (02:28)
[2022-11-05] MEDS ORDERED: HYDROmorphone 0.5 MG/0.5 ML SYRINGE IVP PRN (02:31)
[2022-11-05] MEDS ORDERED: VANCOMYCIN 1,750 MG in SODIUM CHLORIDE 0.9% 500 ML 500 ML IVPB SCH (03:00)
[2022-11-05 04:44] VITALS: BP 127/80; PULSE 79; RESP 16; TEMP 97.8
[2022-11-05] MEDS ORDERED: ATORVASTATIN 40 MG TAB PO SCH (09:00)
[2022-11-05] MEDS ORDERED: TAMSULOSIN 0.4 MG CAP.ER.24H PO SCH (09:00)
[2022-11-05] MEDS ORDERED: ESCITALOPRAM 10 MG TAB PO SCH (09:00)
[2022-11-05] MEDS ORDERED: hydrALAZINE HCL 25 MG TAB PO SCH (09:00)
[2022-11-05] MEDS ORDERED: amLODIPine 10 MG TAB PO SCH (09:00)
[2022-11-05] MEDS ORDERED: CHOLECALCIFEROL 25 MCG (1000 IU) TABLET PO SCH (09:00)
[2022-11-05] MEDS ORDERED: LOSARTAN 50 MG TAB PO SCH (09:00)
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
--- NOTE | 2022-11-05 14:11 | P.DS ---
Providers Date of admission: 11/04/22 19:59 Expected date of discharge: 11/05/22 Attending physician: Kirsten Laureano Consults: 11/04/22 17:58 Consult Physician Routine Consulting Provider: Elza Pham Consult Reason/Comments: abscess to thigh Do you want consulting provider notified?: Yes Primary care physician: Eliu Heath Hospital Course: Final diagnosis Left thigh abscess History of recent hernia repair 8 days ago Hypertension history Hyperlipidemia history Obesity with a BMI of 30.3 Full code Discharge disposition Patient has left AGAINST MEDICAL ADVICE and per nursing documentation time of leave is 0602 AM on 11/05/2022 prior to physical examination. Total time taken is greater than 35 minutes. Hospital course This is a 52-year-old male who was recently admitted for left thigh abscess and decided to leave AGAINST MEDICAL ADVICE prior to physical examination. Patient was started on antibiotics with infectious disease on consult as well as pain management. Please refer to emergency department documentation for further HPI. This is documented as a scribe by nurse practitioner Nova Garcia she received telephone report from emergency department for admission. Patient Condition at Discharge: Fair Plan - Discharge Summary Discharge Rx Participant: Yes New Discharge Prescriptions: No Action Clopidogrel [Plavix] 75 mg PO DAILY Losartan [Cozaar] 50 mg PO DAILY Escitalopram [Lexapro] 20 mg PO DAILY Cholecalciferol [Vitamin D3 (25 Mcg = 1000 Iu)] 50 mcg PO DAILY Rosuvastatin Calcium 20 mg PO DAILY Sildenafil Citrate [Viagra] 100 mg PO DAILY PRN PRN Reason: e.d. Cyclobenzaprine [Flexeril] 10 mg PO TID PRN PRN Reason: Muscle Pain hydrALAZINE HCL [Apresoline] 25 mg PO DAILY traMADol HCL 50 mg PO TID PRN PRN Reason: Pain Tamsulosin [Flomax] 0.4 mg PO DAILY amLODIPine [Norvasc] 10 mg PO DAILY Discharge Medication List Clopidogrel [Plavix] 75 mg PO DAILY 06/02/16 [History] Losartan [Cozaar] 50 mg PO DAILY 02/13/17 [History] Escitalopram [Lexapro] 20 mg PO DAILY 09/25/20 [History] Cholecalciferol [Vitamin D3 (25 Mcg = 1000 Iu)] 50 mcg PO DAILY 11/23/20 [History] hydrALAZINE HCL [Apresoline] 25 mg PO DAILY 11/23/20 [History] Rosuvastatin Calcium 20 mg PO DAILY 10/21/22 [History] Cyclobenzaprine [Flexeril] 10 mg PO TID PRN 11/04/22 [History] Sildenafil Citrate [Viagra] 100 mg PO DAILY PRN 11/04/22 [History] Tamsulosin [Flomax] 0.4 mg PO DAILY 11/04/22 [History] amLODIPine [Norvasc] 10 mg PO DAILY 11/04/22 [History] traMADol HCL 50 mg PO TID PRN 11/04/22 [History] Follow up Appointment(s)/Referral(s): Eliu Heath MD [Primary Care Provider] - 1-2 days Discharge Disposition: Left Against Medical Advice
== END 2022-11-05 06:00 | disposition left against medical advice (07) ==
LOC: EC 14:56 → 6NMEDSUR 19:59 → INTOOBSV 19:59 → 6NMEDSUR 20:37 → UNDODISIN 11-05 06:00
PROVIDERS: ADMIT Hospitalist; ATTEND Hospitalist
DX: L02.416 Cutaneous abscess of left lower limb (principal); E78.5 Hyperlipidemia, unspecified; I10 Essential (primary) hypertension; F41.9 Anxiety disorder, unspecified; I69.354 Hemiplegia and hemiparesis following cerebral infarction affecting left non-dominant side; E66.9 Obesity, unspecified; Z68.30 Body mass index [BMI] 30.0-30.9, adult; Z87.891 Personal history of nicotine dependence; Z79.02 Long term (current) use of antithrombotics/antiplatelets; Z79.899 Other long term (current) drug therapy; Z79.82 Long term (current) use of aspirin; Z88.6 Allergy status to analgesic agent; Z53.29 Procedure and treatment not carried out because of patient's decision for other reasons
CPT/HCPCS: 96366 ×3; 96375 ×2; 96376 ×2; 96361; 96365; 99285; 36415; 80053; 85652; 83605; 85025; 85610; 85730; 86140; 73562; 93971; G0378 ×2; J3370 ×2; J2060; J2270; J2405; J1170 ×2

== ENCOUNTER → 2023-09-28 | Outpatient (CLI) | payer BC, OTHER ==
[2023-09-28 10:20] VITALS: RESP 16
[2023-09-28 10:21] VITALS: BP 126/84; PULSE 69; TEMP 98.9
--- NOTE | 2023-09-28 12:02 | XR ---
EXAMINATION TYPE: XR lumbar spine 2 or 3V DATE OF EXAM: 09/28/2023 10:20 AM CLINICAL INDICATION:Male, 53 years old with history of M51.36 Other DDD; PHH COMPARISON: None TECHNIQUE: XR lumbar spine 2 or 3V - Frontal, lateral and coned in L5-S1 lateral views of the spine. FINDINGS: No evidence of any acute osseous pathology. No evidence of loss of vertebral body height i s seen. There is normal alignment of the lumbar vertebral bodies. Mild scattered disc space narrowing . Multilevel marginal osteophyte formation throughout the visualized spine. There is facet joint arth ropathy throughout the spine. Scattered at least mild neural foraminal stenosis. Left renal calculi m easuring up to 2.4 c this course of the arterial vasculature. M. IMPRESSION: 1. No acute fracture. 2. Mild multilevel disc degeneration. 3. Left renal calculi measuring up to 2.4 cm
--- NOTE | 2023-09-28 14:42 | P.PAINPG ---
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 Pain level is currently at 6 /10 in intensity, constant, localized in the R lower lumbar spine, predominantly axial, sharp in character w occasional shooting towards the R buttocks. Pain is provoked by sitting in long car rides or over activity. Pain is alleviated with physician guided home exercise/ stretching regimen daily since Fall 2022, injections, hot showers, medications, topicals and rest. Oswestry axial pain score of 36. Interventional pain procedures completed include R TFESI L5-S1 x2 (November 2020) Patient is currently on Ibu Patient denies any side effects of the medication(s), denies excessive drowsiness or sleepiness, denies suicidal ideation and reports that the current pain medication is helping to control the pain and improve activities of daily living. Patient denies any motor or sensory deficits. Patient denies any fever or night sweats, denies any change in the bowel movements or urination. Physical Examination: -Constitutional: Cooperative. Not in acute distress . - Neurologic: Cranial nerve II to XII intact. No focal neurological deficits. - Psychatric: Alert & oriented x 3. Matching mood & appropriate affect. Judgment and insight intact. - Musculoskeletal: Cervical spine: Muscle bulk/ tone/ strength in the bilateral upper extremities normal Vertebral body tenderness to palpation over Spurling test positive Distraction test positive Facet loading test positive Thoracic spine Muscle bulk / tone/ strength in the bilateral paraspinal muscles normal Vertebral body tender to palpation over Facet loading test positive Lumbar spine: Motor bulk/ tone/ strength lower extremities , thigh and legs : 5/5 Deep tendon reflexes : Normal Knee Jerk. Normal Ankle Jerk . Vertebral body tenderness to palpation over L5 Lumbar Facet Loading Test positive Straight Leg Raise: positive at 30 degrees right side/ left side Gaenslen's Test positive Sacral spine : Severe tenderness over the Sacroiliac joint: right side / left side Range of motion: Flexion of the lumbar spine <60 degrees Range of motion: Extension of the lumbar spine <20 degrees Gaenslen's Test positive Vinicio test: positive right side / left side Thigh Thrust Test Sacral Thrust Test Imaging: MRI non contrast of the lumbar spine from Aug 2020 reviewed Assessment and plan: Chronic low back pain secondary to lumbar degenerative disc disease, spondylosis with facet arthropathy without myelopathy Recommendation of lumbar x ray M51.36. May need additional imaging if indicated. Medical clearance from Dr. Heath for Plavix sought. All patient questions answered I have spent less than 30 minutes on patient care today. Dr Riley was available by phone for the evaluation of this patient. The time was used to review the medical records including relevant urine studies and Prescription history (MAPs), review of the available imaging, evaluation and examination of the patient, coordination of care with the medical staff and if applicable referring physicians, as well as creation of the medical record PQRS Narrative: Smoking Status Former smoker Hx Alcohol Use (MH) No Home Medications: Ambulatory Orders Clopidogrel [Plavix] 75 mg PO DAILY 06/02/16 Losartan [Cozaar] 50 mg PO DAILY 02/13/17 Escitalopram [Lexapro] 20 mg PO DAILY 09/25/20 Cholecalciferol [Vitamin D3 (25 Mcg = 1000 Iu)] 50 mcg PO DAILY 11/23/20 hydrALAZINE HCL [Apresoline] 25 mg PO DAILY 11/23/20 Rosuvastatin Calcium 20 mg PO DAILY 10/21/22 Cyclobenzaprine [Flexeril] 10 mg PO TID PRN 11/04/22 Sildenafil Citrate [Viagra] 100 mg PO DAILY PRN 11/04/22 Tamsulosin [Flomax] 0.4 mg PO DAILY 11/04/22 amLODIPine [Norvasc] 10 mg PO DAILY 11/04/22 oxyCODONE HCL/ACETAMINOPHEN [Percocet 5-325 mg] 1 tab PO Q4HR PRN 3 Days #15 tab 09/28/23 Controlled Substance Measures - Controlled Substance Measures Is patient prescribed a controlled substance at discharge?: Yes When asked, does pt state using other controlled substances?: Yes If prescribed controlled substance>3 days was MAPS reviewed?: Prescribed <3 Days
== END ==
LOC: PNWHC3 09:16
PROVIDERS: ATTEND Specialist
DX: M51.36 Other intervertebral disc degeneration, lumbar region (principal); M47.816 Spondylosis without myelopathy or radiculopathy, lumbar region; G89.29 Other chronic pain; N20.0 Calculus of kidney; Z87.891 Personal history of nicotine dependence; Z88.8 Allergy status to other drugs, medicaments and biological substances
CPT/HCPCS: 72100; 99211

== ENCOUNTER → 2023-10-05 | Outpatient (CLI) | payer BC ==
--- NOTE | 2023-10-06 02:54 | EEG ---
ELECTROENCEPHALOGRAM REPORT CLINICAL HISTORY: This is a 53-year-old gentleman with reported history of seizure. The video EEG is obtained to evaluate for seizure epileptiform activity. RELEVANT MEDICATION: The patient is not on antiepileptic drug per the system support technician's reports. EEG TYPE: A routine 21-channel EEG with video using the 10/20 electrode placement system. DESCRIPTION: Wakefulness and drowsiness are obtained. During awake state, the posterior-dominant rhythm consists of [id number] voltage of 9 hertz activity that is well modulated and well sustained. There is no physiological stage 2 sleep architecture. There is no focal slowing. Interictal and ictal is none. ACTIVATION PROCEDURE: Photic stimulation did not evoke a posterior driving response. There is no abnormality during the photic stimulation. Hyperventilation is not performed. CLINICAL INTERPRETATION: This is a normal routine EEG. There is no focal slowing, epileptiform discharge, or seizure on the EEG. A normal routine EEG does not rule out underlying epilepsy. Clinical correlation is recommended. MMPAOLA / ROSANAN: [id number] /
== END ==
LOC: NEUROMAIN 07:45
PROVIDERS: ATTEND Psychiatry & Neurology Neurology
DX: G40.209 Localization-related (focal) (partial) symptomatic epilepsy and epileptic syndromes with complex partial seizures, not intractable, without status epilepticus (principal); Z87.891 Personal history of nicotine dependence; Z88.6 Allergy status to analgesic agent
CPT/HCPCS: 95819

== ENCOUNTER → 2023-10-13 | Outpatient (CLI) | payer BC ==
--- NOTE | 2023-10-13 14:03 | MR ---
EXAMINATION TYPE: MR brain wo/w con DATE OF EXAM: 10/13/2023 COMPARISON: 11/28/2017 HISTORY: Epilepsy. CONTRAST: Performed utilizing 11 mL intravenous Gadobutrol gadolinium contrast. TECHNIQUE: Multiplanar, multiecho imaging on a 3.0 Ericka magnet is performed through the brain. Stud y is performed within 24 hours of arrival to the hospital. The craniovertebral junction is normal. The pituitary is normal. Diffusion-weighted imaging is performed. No abnormal hyperintensity is present to suggest an acute i ntracranial infarct or acute ischemic change. There are scattered punctate subcortical and deep white matter changes bilaterally. Findings are nons pecific but can be related to microvascular ischemic change. Differential diagnosis could include mul tiple sclerosis, vasculitis, migraine headaches. Ventricles and sulci are appropriate for the patient age. Temporal lobes appear symmetrical. Signal through the temporal lobes is unremarkable. No abnormal enhancement is evident. IMPRESSION: 1. Multiple scattered punctate bilateral hyperintensities likely on the basis of chronic microvascula r ischemic change.
== END | disposition home or self-care (01) ==
LOC: RADMRIMAIN 05:53
PROVIDERS: ATTEND Psychiatry & Neurology Neurology
DX: G93.89 Other specified disorders of brain (principal); G40.911 Epilepsy, unspecified, intractable, with status epilepticus; M51.36 Other intervertebral disc degeneration, lumbar region
CPT/HCPCS: 70553; A9585

== ENCOUNTER → 2023-10-23 | Outpatient (CLI) | payer BC ==
--- NOTE | 2023-10-23 11:40 | MR ---
EXAMINATION TYPE: MR lumbar spine wo con DATE OF EXAM: 10/23/2023 COMPARISON: MRI 08/17/2020 HISTORY: 53-year-old male M51.36, Low back pain TECHNIQUE: Multiplanar, multisequence images of the lumbar spine were acquired without IV contrast. FINDINGS: There is a transitional lumbosacral segment denoted as a lumbarized S1. Conus medullaris is normal. No suspicious bone marrow replacement. Advanced hypertrophic facet arthropathy is present at L5-S1 with degenerative grade 1 anterolisthesis . Vertebral body heights are preserved. Remaining alignment is maintained. Mild bulging discs are present at multiple levels impressing on the ventral thecal sac. There is also mild to moderate degenerative disc disease at L5-S1 with a mildly narrowed, desiccated and bulging d isc. Slightly progressed from 2020. No large focal disc herniation or significant spinal canal stenosis is seen. Changes result in severe left neuroforaminal stenosis at L5-S1 and mild at L4-L5. There is moderate right neuroforaminal stenosis at L5-S1 with abutment of the exiting right L5 nerve root. Mild neural foraminal narrowing at L4-L5. IMPRESSION: 1. Transitional lumbosacral segment denoted as a lumbarized S1. 2. Advanced hypertrophic facet arthropathy lower lumbar spine with degenerative trace grade 1 anterol isthesis L5-S1. Mild to moderate degenerative disc disease here shows slight progression from 2020. 3. Severe left and moderate right neural foraminal stenosis at L5-S1.
== END | disposition home or self-care (01) ==
LOC: RADMRIMAIN 07:28
PROVIDERS: ATTEND Specialist
DX: M51.36 Other intervertebral disc degeneration, lumbar region (principal); M43.17 Spondylolisthesis, lumbosacral region; M47.816 Spondylosis without myelopathy or radiculopathy, lumbar region; M99.73 Connective tissue and disc stenosis of intervertebral foramina of lumbar region
CPT/HCPCS: 72148

== ENCOUNTER → 2023-10-30 | Outpatient (CLI) | payer BC, OTHER ==
[2023-10-30 09:07] VITALS: BP 154/100; PULSE 87; RESP 16; TEMP 97.7
--- NOTE | 2023-10-30 09:52 | P.PAINPG ---
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 Pain level is currently at 7 /10 in intensity, constant, localized in the R lower lumbar spine, predominantly axial, sharp in character w occasional shooting towards the BL buttocks. Pain is provoked by sitting in long car rides or over activity. Pain is alleviated with physician guided home exercise/ stretching regimen daily since Fall 2022, injections, hot showers, medications, topicals and rest. Oswestry axial pain score of 36. Interventional pain procedures completed include R TFESI L5-S1 x2 (Sep 2020, November 2020) Patient is currently on Ibu Patient denies any side effects of the medication(s), denies excessive drowsiness or sleepiness, denies suicidal ideation and reports that the current pain medication is helping to control the pain and improve activities of daily living. Patient denies any motor or sensory deficits. Patient denies any fever or night sweats, denies any change in the bowel movements or urination. Physical Examination: -Constitutional: Cooperative. Not in acute distress . - Neurologic: Cranial nerve II to XII intact. No focal neurological deficits. - Psychatric: Alert & oriented x 3. Matching mood & appropriate affect. Judgment and insight intact. - Musculoskeletal: Cervical spine: Muscle bulk/ tone/ strength in the bilateral upper extremities normal Vertebral body tenderness to palpation over Spurling test positive Distraction test positive Facet loading test positive Thoracic spine Muscle bulk / tone/ strength in the bilateral paraspinal muscles normal Vertebral body tender to palpation over Facet loading test positive Lumbar spine: Motor bulk/ tone/ strength lower extremities , thigh and legs : 5/5 Deep tendon reflexes : Normal Knee Jerk. Normal Ankle Jerk . Vertebral body tenderness to palpation over L5 Lumbar Facet Loading Test positive Straight Leg Raise: positive at 30 degrees right side/ left side Gaenslen's Test positive Sacral spine : Severe tenderness over the Sacroiliac joint: right side / left side Range of motion: Flexion of the lumbar spine <60 degrees Range of motion: Extension of the lumbar spine <20 degrees Gaenslen's Test positive Vinicio test: positive right side / left side Thigh Thrust Test Sacral Thrust Test Imaging: MRI non contrast of the lumbar spine from Aug 2020 reviewed MRI non contrast of the lumbar spine from 10/23/23 reviewed Assessment and plan: Chronic LBP secondary to lumbar DDD, spondylosis with facet arthropathy without myelopathy Recommendation of BL TFESI L5-S1 #1. May need additional injections for optimal pain relief. Risks, benefit s of procedure discussed and pt verbalized understanding. Protocol for discontinuation/ continuation of medications russell procedure discussed. All patient questions answered I have spent less than 30 minutes on patient care today. Dr Riley was available by phone for the evaluation of this patient. The time was used to review the medical records including relevant urine studies and Prescription history (MAPs), review of the available imaging, evaluation and examination of the patient, coordination of care with the medical staff and if applicable referring physicians, as well as creation of the medical record - Pain Location Bilateral Lower Back Non-Pharmacological Interventions: Heat, Physical Therapy, Position/Reposition Pharmacological Interventions: Epidural, PRN Medication, Topical Medication PQRS Narrative: Smoking Status Former smoker Hx Alcohol Use (MH) No Home Medications: Ambulatory Orders Clopidogrel [Plavix] 75 mg PO DAILY 06/02/16 Losartan [Cozaar] 50 mg PO DAILY 02/13/17 Escitalopram [Lexapro] 20 mg PO DAILY 09/25/20 Cholecalciferol [Vitamin D3 (25 Mcg = 1000 Iu)] 50 mcg PO DAILY 11/23/20 hydrALAZINE HCL [Apresoline] 25 mg PO DAILY 11/23/20 Rosuvastatin Calcium 20 mg PO DAILY 10/21/22 Cyclobenzaprine [Flexeril] 10 mg PO TID PRN 11/04/22 Sildenafil Citrate [Viagra] 100 mg PO DAILY PRN 11/04/22 Tamsulosin [Flomax] 0.4 mg PO DAILY 11/04/22 amLODIPine [Norvasc] 10 mg PO DAILY 11/04/22 diazePAM [Valium] 5 mg PO DAILY PRN 1 Days #2 tab 10/30/23 oxyCODONE HCL/ACETAMINOPHEN [Percocet 5-325 mg] 1 tab PO Q4HR PRN 3 Days #15 tab 10/30/23 Controlled Substance Measures - Controlled Substance Measures Is patient prescribed a controlled substance at discharge?: Yes When asked, does pt state using other controlled substances?: No If prescribed controlled substance>3 days was MAPS reviewed?: Prescribed <3 Days
== END ==
LOC: PNWHC3 08:30
PROVIDERS: ATTEND Specialist
DX: M51.36 Other intervertebral disc degeneration, lumbar region (principal); M47.816 Spondylosis without myelopathy or radiculopathy, lumbar region; G89.29 Other chronic pain; Z87.891 Personal history of nicotine dependence; Z88.8 Allergy status to other drugs, medicaments and biological substances
CPT/HCPCS: 99211

== ENCOUNTER → 2023-12-12 | Outpatient (CLI) | payer BC ==
--- NOTE | 2023-12-22 22:19 | CT ---
EXAMINATION TYPE: CT lumbar spine wo con DATE OF EXAM: 12/12/2023 COMPARISON: MRI 10/23/2023 HISTORY: 53-year-old male M54.50, DEGENERATIVE DISC DISEASE TECHNIQUE: Contiguous axial scanning of the lumbar spine without IV contrast. Coronal and sagittal re constructions performed. CT DLP: 994 mGycm Automated exposure control for dose reduction was used. FINDINGS: Transitional lumbosacral segment denoted as a lumbarized S1. There is advanced hypertrophic facet arthropathy especially towards the right at L5-S1 with degenerat marti grade 1 anterolisthesis here. Mild to moderate degenerative disc space narrowing with disc bulging at L5-S1 also present. Otherwise, no focal disc herniation or significant spinal canal stenosis. Mild circumferential attenu ation of the thecal sac at L5-S1. The severe hypertrophic facet arthropathy with disc bulge and grade 1 anterolisthesis contributes to severe bilateral neuroforaminal stenosis at L5-S1 and moderate on both sides at L4-L5. Mild degenerative change right SI joint. Partially visualized large calculi left kidney measuring at least 2.2 cm. IMPRESSION: 1. TRANSITIONAL LUMBOSACRAL SEGMENT DENOTED A LUMBARIZED S1. 2. ADVANCED HYPERTROPHIC FACET ARTHROPATHY ESPECIALLY TOWARD THE RIGHT AT L5-S1 AND A DEGENERATIVE GR RAQUEL 1 ANTEROLISTHESIS HERE. MILD TO MODERATE DEGENERATIVE DISC DISEASE HERE. 3. CHANGES RESULT IN OVERALL MILD ATTENUATION OF THE THECAL SAC HERE AT L5-S1 BUT WITHOUT SIGNIFICANT SPINAL CANAL STENOSIS. 4. CHANGES ALSO CONTRIBUTE TO SEVERE BILATERAL NEUROFORAMINAL STENOSIS AT L5-S1 AND MODERATE ON BOTH SIDES AT L4-L5. 5. LEFT-SIDED NEPHROLITHIASIS.
== END | disposition home or self-care (01) ==
LOC: RADCTMAIN 08:55
PROVIDERS: ATTEND Orthopaedic Surgery
DX: M47.817 Spondylosis without myelopathy or radiculopathy, lumbosacral region (principal); M43.17 Spondylolisthesis, lumbosacral region; M51.37 Other intervertebral disc degeneration, lumbosacral region; N20.0 Calculus of kidney; M99.73 Connective tissue and disc stenosis of intervertebral foramina of lumbar region
CPT/HCPCS: 72131

== ENCOUNTER → 2024-01-17 | Outpatient (CLI) | payer BC | END | disposition home or self-care (01) | LOC: LABPAT 08:55 | PROVIDERS: ATTEND Orthopaedic Surgery | DX: Z01.812 Encounter for preprocedural laboratory examination (principal); M48.061 Spinal stenosis, lumbar region without neurogenic claudication; M47.26 Other spondylosis with radiculopathy, lumbar region; Z22.322 Carrier or suspected carrier of Methicillin resistant Staphylococcus aureus | CPT/HCPCS: 36415; 86850; 86900; 86901; 87070 ==

== ENCOUNTER 2024-01-23 05:47 | Observation (INO) | payer BC ==
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
[~2024-01-23 05:47] MED LIST changes: -ACETAMINOPHEN TAB 500 MG TAB PO STA; -DEXAMETHASONE SOD PHOSPHATE 4 MG/ML 1 ML VIAL IV ONE; -GABAPENTIN 300 MG CAP PO STA; -HEPARIN SODIUM,PORCINE/PF 5,000 UNIT/0.5 ML SYRINGE SQ PRN; -LACTATED RINGERS 1,000 ML IV SCH; +LIDOCAINE 1% (10MG/ML) FOR IV START INTRADERMA PRN; +MIDAZOLAM 2 MG/2 ML VIAL IV PRN; -ONDANSETRON 4 MG/2 ML VIAL IVP ONE; +ONDANSETRON 4 MG/2 ML VIAL IVP PRN; -TAMSULOSIN 0.4 MG CAP.ER.24H PO STA; +TRANEXAMIC 1,000 MG/100ML-NACL 1,000 MG in SALINE 1 100ML.BAG IVPB PRN; +fentaNYL (PF) 50 MCG/ML 2 ML AMP IVP PRN
[2024-01-23] MEDS: IV FLUID CONTINUATION 1,000 ML IV ONE ×2 (06:44)
[2024-01-23] MEDS: ACETAMINOPHEN TAB 500 MG TAB PO PRN (06:52)
[2024-01-23] MEDS: DEXAMETHASONE SOD PHOSPHATE 4 MG/ML 1 ML VIAL IV ONE (06:52)
[2024-01-23] MEDS: GABAPENTIN 300 MG CAP PO PRN (06:52)
[2024-01-23] MEDS: ONDANSETRON 4 MG/2 ML VIAL IVP ONE (06:52)
[2024-01-23] MEDS: MIDAZOLAM 2 MG/2 ML VIAL IVP ONE (06:57)
[2024-01-23] MEDS: fentaNYL (PF) 50 MCG/ML 2 ML AMP IVP ONE (07:00)
[2024-01-23] MEDS: VANCOMYCIN 1,750 MG in SODIUM CHLORIDE 0.9% 500 ML 500 ML IVPB ONE (07:14)
[2024-01-23] MEDS: IV FLUID CONTINUATION 500 ML IV ONE (07:24)
[2024-01-23] MEDS ORDERED: SODIUM CHLORIDE 0.9% (PF) 10 ML VIAL ONE (07:29)
[2024-01-23] MEDS ORDERED: HYDROmorphone (PF) 1 MG/ML ONE (07:29)
[2024-01-23] MEDS ORDERED: GLYCOPYRROLATE 0.2 MG/ML 2 ML VIAL ONE (07:29)
[2024-01-23] MEDS ORDERED: fentaNYL (PF) 50 MCG/ML 2 ML AMP ONE (07:29)
[2024-01-23] MEDS ORDERED: PHENYLEPHRINE-0.9% NACL SYG 1,000 MCG/10 ML SYRINGE ONE (07:29)
[2024-01-23] MEDS ORDERED: TRANEXAMIC 1,000 MG/100ML-NACL PREMIX BAG ONE (07:29)
[2024-01-23] MEDS ORDERED: LIDOCAINE 1% INJ 10MG/ML (20 ML MDV) ONE (07:29)
[2024-01-23] MEDS ORDERED: ROCURONIUM 10 MG/ML (5 ML VIAL) IV ONE (07:29)
[2024-01-23] MEDS ORDERED: SUCCINYLCHOLINE CHLORIDE 200 MG/10 ML VIAL IV ONE (07:29)
[2024-01-23] MEDS ORDERED: DEXAMETHASONE SOD PHOSPHATE 4 MG/ML 1 ML VIAL ONE (07:29)
[2024-01-23] MEDS ORDERED: ROPIVACAINE 5 MG/ML 30 ML VIAL ONE (07:29)
[2024-01-23] MEDS ORDERED: PROPOFOL 10 MG/ML 20 ML VIAL IV ONE (07:29)
[2024-01-23] MEDS ORDERED: MIDAZOLAM 2 MG/2 ML VIAL ONE (07:29)
[2024-01-23] MEDS ORDERED: NEOSTIGMINE 1 MG/ML 10 ML VIAL ONE (07:29)
[2024-01-23] MEDS: THROMBIN (BOVINE) 5,000 UNIT VIAL TOPICAL ONE (08:05)
[2024-01-23] MEDS: BUPIVACAINE (PF) 0.5% 30 ML VIAL SQ ONE ×2 (08:05)
[2024-01-23] MEDS: LIDOCAINE 2%-EPI 1:100,000 20 ML VIAL SQ ONE ×2 (08:05)
--- NOTE | 2024-01-23 09:12 | P.ANPRN ---
Procedure Note - Anesthesia - Nerve Block Performed Bilateral Erector Spinae Single Time Out Performed: Yes Date of Procedure: 01/23/24 Procedure Start Time: 06:57 Procedure Stop Time: 07:13 Location of Patient: PreOp Indication: Acute Post-Operative Pain, Requested by Surgeon Sedation Type: Sedate with meaningful contact maintained Preparation: Sterile Prep, Sterile Dressing Position: Prone Catheter: None Needle Types: Facet Needle Gauge: 20 Ultrasound used to visualize needle placement: Yes Ultrasound used to observe medication spread: Yes Injectate: Other (see comment) (Ropivaine 0.2% + decadron 2 mg 30 ml per side) Blood Aspirated: No Pain Paresthesia on Injection Noted: No Resistance on Injection: Normal Image Stored and Saved: Yes Events: Uneventful and Well Tolerated
[2024-01-23] MEDS: LACTATED RINGERS 1,000 ML IV ONE (09:59)
--- NOTE | 2024-01-23 10:08 | P.OP ---
Date of Procedure: 01/23/24 Preoperative Diagnosis: Current Active Problems Spondylolisthesis at L5-S1 level (Acute) Spinal stenosis of lumbosacral region with radiculopathy (Acute) Paresthesia of lower extremity (Acute) Low back pain (Acute) Postoperative Diagnosis: Current Active Problems Spondylolisthesis at L5-S1 level (Acute) Spinal stenosis of lumbosacral region with radiculopathy (Acute) Paresthesia of lower extremity (Acute) Low back pain (Acute) Procedure(s) Performed: 1. L5-S1 POSTERIOLATERAL AND INTERBODY FUSION (85725) 2. L5-S1 INSTRUMENTATION (42046) 3. L5-S1 LAMINOFORAMINOTOMY AND DECOMPRESSION (68016) 4. INSERTION OF BIOMECHANICAL DEVICE (11132) 5. USE OF Nimia NAVIGATION (89143) USE OF IONM USE OF IO MICROSCOPE Implants: -CYNDIE EVEREST SCREWS AND RODS -GLOBUS SABLE 8 DEG 9-16, LONG CAGE -MAGNATOS, AUTOGRAFT, ALLOGRAFT, ARTHROCELL, ALLOCELL Anesthesia: GETA Surgeon: Sacha Bob Set Up Mechanic Heading Machines #1: Ngozi Honeycutt (WAS PRESENT AND ASSISTED WITH ALL ASPECTS OF THE CASE FROM POSITION TO CLOSURE) Estimated Blood Loss (ml): 75 IV fluids (ml): 1,200 Urine output (ml): 100 Pathology: none sent Condition: stable Disposition: PACU Indications for Procedure: Mr. Prieto is presenting for evaluation of low back and bilateral lower extremity pain, bilateral lower extremity radiculopathy; left worse than right. It was my pleasure to have seen and examined Mr. Prieto. In our visit today we have had a chance to go over subjective complaints, physical examination findings and treatments including the natural course h istory without intervention and various interventional options. The patients imaging demonstrates: XRAY Date: 11/27/2023 Location: [facility] Region: Lumbar & Pelvis Views: Lumbar (ap/lat/flex/ext) & Pelvis (ap) Previous x-rays re-reviewed today. L5-S1 grade I unstable spondylolisthesis with foraminal stenosis noted. Facety arthropathy as well as disc height loss and degeneration. There are no fractures. Alignment is affected by the slip with local kyphosis. No lesions. CT Scan Date: 12/12/2023 Location: [facility] Region:Lumbar Contrast:N Unstable L5-S1 grade I spondylolisthesis with stenosis b/l foraminal and central with facet arthropathy and hypertrhpy as well as elongation of pars. NO fractures noted. n o lesions note.d MRI Date: 10/23/2023 Location: [facility] Region:Lumbar Contrast:N Previous MRI re-reviewed today. L5-S1 spondylosis with grade I unstable spondylolisthesis noted. No lesions. No fractures. Central and b/l foraminal stenosis that is moderate to severe at this level. Remaining levels normal height and hydration. On physical exam, Mr. Prieto demonstrates: A constant throbbing, shooting pain across the low back that radiates down into the bilateral lower extremities. He notes the left leg pain is more severe than the right at this time. He states his leg pain is associated with numbness and tingling bilaterally. He notes onset of left lower extremity weakness after prolonged standing. He states he previously received a lumbar epidural steroid injection at pain management in late 2020 with significant relief for 6 months to 1 year. He notes a gradual return of pain over the last 1 to 2 years. He states his low back pain worsens after all activity. He reports experiencing severe sleep disturbances related to his ongoing pain and associated symptoms. I have explained to the patient that as their condition progresses it will cause further neurological deficits and eventual paralysis. Based on the patients imaging, physical exam, and the rapid progression and disabling nature of their symptoms, at this time I recommend surgery in the form of a: Left L5-S1 minimally invasive transforaminal lumbar interbody fusion. I discussed the risk and benefits of this procedure at length with Mr. Prieto. The patient agreed to considered pursuing the procedure abovementioned. Prior to surgery, she should follow up with her PCP (Cardio, ID, IM etc) for clearance. Questions were invited and answered, and the patient wishes to proceed as outlined below. Currently, I am recommendin.Left L5-S1 MINIMALLY INVASIVE POSTEROLATERAL AND INTERBODY FUSION Description of Procedure: L5-S1 MIS TLIF SARAH (R) The patient was seen and examined in the preoperative area. All preoperative protocols were followed. Informed consent was obtained, risks and benefits of the procedure were discussed at length. Risks including bleeding infection damage to the surrounding tissue and risk of reoperation were discussed with the patient. Risk of anesthesia up to and including was discussed with the patient. These are outlined in the risk review. They were willing to accept these risks and all the risks of surgery. The patient was given a weight-based dose of antibiotics in the form of 2 g Ancef. The patient was seen and evaluated by the anesthesia team who deemed them fit for surgery. The site was marked, the patient was willing to proceed with the procedure. The patient was transferred to the operative suite by the Department of anesthesia. They were then drifted off to sleep by the department anesthesia and GETA was performed. The patient tolerated this well. Youngblood catheter was placed by nursing staff, a-traumatically. Once confirmation of lines and ventilation the patient was transferred to a prone Julius table very carefully. All bony prominences including wrists, elbows, axilla, chest, hips, and thighs, and feet were padded very well. Special attention was paid to the genitalia, and these were padded accordingly. SCDs were placed on bilateral lower extremities and were connected. Arms were well padded and placed on arm boards up and out in the 90/90 position. Once in position, again we confirmed good ventilation capabilities and that lines were running appropriately. The patients Lumbar spine was then exposed. 1010s were placed outlining the incision site. Standard alcohol was used to clean the incision site and allowed to dry. C-arm was used to needle localize the pedicles at L5-S1 and bio-nilo the patient and confirm level for incision which was marked with a skin marker. Operative briefing was performed with all teams and everyone in agreement to proceed. The patient was then prepped and draped in a normal sterile fashion. Timeout was then performed, and all parties agreed with the procedure to be performed. Skin nicks were made over the PSIS on the right side and pins placed for the [employer] Navigation tracker. This was secured and then a 3D Zhiem spin was registered. Once registered it was tested and confirmed to be accurate. We then targeted pedicles b/l at L5 and S1 using navigated johana and Rufina. Wires were then placed in their void and confirmed to be in good position on AP and Lateral. Contralateral right side screws were then placed over wires and tested and they all tested above 20 mA. Attention was then turned to interbody fusion at L5-S1. Tubular retractor system was placed at the interspace of L5-S1 using biplanar c arm. Once in position and dilated up to 26mm tube it was locked to the bed and confirmed in good position. Microscope was then brought in for visualization. Limited m yomectomy was performed and laminectomy, complete facetectomy and foraminotomy performed at L5-S1 using high speed johana and Kerrison rongure. The ligamentum was removed and dural sac decompressed. Exiting and traversing roots visualized and decompressed. Neural elements were then protected, and disc space accessed with an osteotome. Sequential shaving then done under lateral imaging and complete discectomy performed using mckenzie, pituitary and curette. Once good bleeding endplates accomplished and good height anabaptism with trials, a combination of autograft, allograft and synthetic placed anterior in the disc space. The cage was then selected and impacted into place under lateral imaging. The cage was then expanded restoring height, lordosis and alignment. The cage was backfilled with bone graft through a funnel. The mountain bike guide removed and area inspected. Good cage placement, stable cage and no injuries. Area was irrigated copiously, and meticulous hemostasis achieved. The tubular retractor was then removed under direct visualization. Screws were then selected and placed over the previously placed wires on the ipsilateral side. This was done in the fashion described above. Screws were then tested, and all tested above 20 mA. Shells were then placed on the tabs. Angel length was then measured, and rods selected. They were then placed through the MIS tabs, subfascial. These were then locked into place with set screws and final tightened. Angel holders removed and images taken showing good placement of rods good lordosis and anabaptism of height. Tabs were broken off. Wounds were then copiously irrigated with NSS. [place] used for TP decortication and mixture of MagnatOs, allograft and autograft packed posterolateral. Facia was then closed with 0 Vircyl. Deep subq closed with 0 Vicryl. Superficial subq closed with 2-0 Vicryl and skin with jhon. Wound edges approximated very well. Wound was then cleaned with alcohol and dried. Wounds dressed in Optifoam dressings. The patient was then transferred off the table back to their hospital bed a- traumatically. They were extubated by the department of anesthesia. They were then transferred to PACU in stable condition having tolerated the procedure with no complications.
[2024-01-23] MEDS ORDERED: MAGNESIUM HYDROXIDE 2,400 MG/30 ML CUP PO PRN (10:17)
[2024-01-23] MEDS ORDERED: HYDROcodone/APAP 5-325MG 1 EACH TAB PO PRN (10:17)
[2024-01-23] MEDS ORDERED: ONDANSETRON 4 MG/2 ML VIAL IVP PRN (10:17)
[2024-01-23] MEDS ORDERED: bisacodyL 10 MG SUPP RECTAL PRN (10:17)
--- NOTE | 2024-01-23 10:42 | XR ---
Fluoroscopy INDICATION: Pain FINDINGS: Fluoroscopy time: Not recorded seconds. Total dose area product (DAP) in uGy*m?, mGy*cm? (or similar): Not recorded Images obtained: 0. IMPRESSION: 1. Documentation of fluoroscopy.
--- NOTE | 2024-01-23 10:43 | FL ---
Fluoroscopy INDICATION: Pain FINDINGS: Fluoroscopy time: 54 seconds. Total dose area product (DAP) in uGy*m?, mGy*cm? (or similar): 130.56 Images obtained: 0. IMPRESSION: 1. Documentation of fluoroscopy.
[2024-01-23] MEDS: HYDROmorphone 0.5 MG/0.5 ML SYRINGE IVP PRN ×2 (10:53→17:53)
[2024-01-23] MEDS: HYDROmorphone 1 MG/ML 1 ML SYRINGE IVP PRN (15:04)
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
[2024-01-23] MEDS: LACTATED RINGERS 1,000 ML IV SCH (15:53)
--- NOTE | 2024-01-23 19:31 | CT ---
EXAMINATION TYPE: CT lumbar spine wo con DATE OF EXAM: 01/23/2024 COMPARISON: 12/12/2023 HISTORY: s/p L5-S1 TLIF CT DLP: 1656.6 mGycm CONTRAST: None TECHNIQUE: CT of the lumbar spine is performed on a spiral scan at 3 mm thick sections. Reconstructed images are performed in the coronal and sagittal planes. FINDINGS: Numbering system from the prior examination utilized for this exam. The lowest disc level i s labeled S1-2. T12-L1: No focal disc herniation or significant disc bulge is evident. No spinal canal stenosis or neural foraminal stenosis is present. L1-L2: No focal disc herniation or significant disc bulge is evident. No spinal canal stenosis or n eural foraminal stenosis is present L2-L3: No focal disc herniation. Mild disc bulge is present. No spinal canal stenosis or neural derrick inal stenosis is present L3-L4: No focal disc herniation or significant disc bulge is evident. No spinal canal stenosis or n eural foraminal stenosis is present L4-L5: Minimal disc bulge is present at L4-5. No spinal canal stenosis. Neural foramen are patent L5-S1: There is a disc spacer at L4-5. Facet hypertrophy is present with lateral canal narrowing. Ev aluation is somewhat limited given significant artifact from metallic fixation. No AP spinal canal st enosis present. Foramina are patent. S1-S2: No focal disc herniation or significant disc bulge is evident. No spinal canal stenosis or n eural foraminal stenosis is present Vertebral alignment appears normal. IMPRESSION: 1. Limitation at the L5-S1 level. However, lateral canal narrowing appears to be present
[2024-01-23] MEDS: HYDROcodone/APAP 10-325MG 1 EACH TAB PO PRN (20:24)
[2024-01-23] MEDS: SENNOSIDES-DOCUSATE SODIUM 1 EACH TAB PO SCH (20:24)
[2024-01-23] MEDS: hydrALAZINE HCL 25 MG TAB PO SCH (22:07)
[2024-01-24 05:12] LABS: African American GFR (CKD) >90 (>60 ml/min/1.73 sqM); Anion Gap 7 mmol/L; Blood Urea Nitrogen 18 mg/dL (9-20); Calcium 8.7 mg/dL (8.4-10.2); Carbon Dioxide 24 mmol/L (22-30); Chloride 103 mmol/L (98-107); Glucose 134 mg/dL (74-99); Non-African American GFR(CKD) 82 (>60 ml/min/1.73 sqM); Potassium 3.8 mmol/L (3.5-5.1); Sodium 134 mmol/L (137-145)
[2024-01-24 05:47] LABS: Basophils # (A) 0.1 k/uL (0-0.2); Basophils % (A) 0 %; Eosinophils # (A) 0.1 k/uL (0-0.7); Eosinophils % (A) 0 %; HCT 40.8 % (39.0-53.0); HGB 13.4 gm/dL (13.0-17.5); Lymphocytes # (A) 2.4 k/uL (1.0-4.8); Lymphocytes % (A) 13 %; MCH 30.5 pg (25.0-35.0); MCHC 32.9 g/dL (31.0-37.0); MCV 92.7 fL (80.0-100.0); Mean Platelet Volume 8.3; Monocytes # (A) 1.2 k/uL (0-1.0); Monocytes % (A) 7 %; Neutrophils # (A) 13.8 k/uL (1.3-7.7); Neutrophils % (A) 77 %; Platelet Count 312 k/uL (150-450); RDW 14.7 % (11.5-15.5); WBC 17.9 k/uL (3.8-10.6)
[2024-01-24] MEDS: CYCLOBENZAPRINE 5 MG TAB PO PRN (06:29)
[2024-01-24] MEDS: amLODIPine 10 MG TAB PO SCH (09:03)
[2024-01-24] MEDS: ATORVASTATIN 40 MG TAB PO SCH (09:03)
[2024-01-24] MEDS: LOSARTAN 50 MG TAB PO SCH (09:04)
[2024-01-24] MEDS: ESCITALOPRAM 20 MG TAB PO SCH (09:04)
[2024-01-24] MEDS: CHOLECALCIFEROL 25 MCG (1000 IU) TABLET PO SCH (09:04)
--- NOTE | 2024-01-24 09:07 | P.PN ---
Subjective Progress Note Date: 01/24/24 Principal diagnosis: 1. Grade I spondylolisthesis of L5 on S1 with spondylosis and stenosis 2. Bilateral foraminal stenosis 3. Bilateral lower extremity radiculopathy, left worse than right Patient seen and examined this morning. Patient is resting comfortably in bed. Patient does have report of moderate low back pain that increases with activity. Pain medication has been adjusted. Patient does report improvement of radiculopathy and numbness and tingling into the bilateral lower extremities. He states this morning he does notice numbness and tingling into his feet. Patient is looking forward to working with physical therapy today. Patient does have his LSO brace and walker at bedside. Surgical incisions to the lumbar spine, dressings are clean dry and intact. No shadowing noted. Will assess patient later this afternoon if he is doing well with activity and pain is managed he may be discharged home with home care. Objective - Vital Signs Vital signs: Vital Signs Temp 98.0 F 01/24/24 06:55 Pulse 87 01/24/24 06:55 Resp 16 01/24/24 06:55 BP 129/65 01/24/24 06:55 Pulse Ox 96 01/24/24 06:55 FiO2 Intake & Output 01/23/24 01/24/24 01/24/24 18:59 06:59 18:59 Intake Total 1840 Output Total 525 2270 Balance 1315 -2270 Weight 111.8 kg Intake: IV 1600 Oral 240 Output: Urine 450 2270 Estimated Blood Loss 75 Other: Voiding Method Urinal # Voids 5 - Exam Physical Examination General: The patient is awake and alert, in no acute distress Skin: Skin is warm and dry with no obvious rashes or lesions. Bilateral lumbar surgical incisions, dressings are clean dry and intact. No shadowing noted. Eye: Pupils are equal, round and reactive to light, extra-ocular movements are intact; there is normal conjunctiva bilaterally. Neck: The neck is supple, there is no tenderness and ROM intact. Cardiovascular: There is a regular rate and rhythm. No murmur, rub or gallop is appreciated. Respiratory: Lungs are clear to auscultation, respirations are non-labored, breath sounds are equal. Gastrointestinal: Soft, non-distended, non-tender abdomen. Back: There is no tenderness to palpation in the midline, paralumbar, pa rathoracic or buttocks region. There is no obvious deformity . Musculoskeletal: ROM limited secondary to pain and stiffness from surgical procedure. Muscle strength in all major muscle groups of bilateral upper extremities 5/5, bilateral lower extremities 4/5. Neurological: CN 2-12 intact. There are no obvious motor or sensory deficits. Movement and coordination equal and intact. Sensory exam to light touch intact C5-T1 and intact from L2-S1. Reflexes 2/4 in bilateral upper and lower extremiti es. Negative Hoffmans, babinski, and clonus signs. Psychiatric: Cooperative, appropriate mood & affect, normal judgment. - Labs CBC & Chem 7: 01/24/24 02:58 01/24/24 02:58 Labs: Abnormal Lab Results - Last 24 Hours (Table) 01/24/24 01/24/24 Range/Units 02:58 02:58 WBC 17.9 H (3.8-10.6) k/uL Neutrophils # 13.8 H (1.3-7.7) k/uL Monocytes # 1.2 H (0-1.0) k/uL Sodium 134 L (137-145) mmol/L Glucose 134 H (74-99) mg/dL Assessment and Plan Assessment: Postop day 1: L5-S1 TLIF Plan: -Appreciate valuation consultant and team management. -Activity: Ambulate QID, OOB all meals, up and about, limit lifting bending twisting to less than 5 lbs. Use walker or cane if needed for stability. -Daily PT/OT, increase ambulation strength and balance. -Brace when up and about, not needed in bed or chair -Pain control: Medications have been adjusted -Meds: reviewed -GI ppx: senna, Miralax -DVT PPX: OK to restart Heparin tonight, TEDS, SCDs -Hygiene: Maintain dressing clean and dry. Meticulous cleaning after BMs away from the incision site -Encourage IS 10x/hr -Dispo: Anticipate discharge home with home care later today vs tomorrow 01/25/24. *I reviewed and discussed this case with my attending Dr. Bob, whom has reviewed this chart and films and is in agreement with assessment and plan of care as outlined above. I have personally seen and examined the patient, performed the documentation and the assessment and plan as written. Number of minutes spent on the visit: 20m.
[2024-01-24] MEDS: oxyCODONE-APAP 7.5-325MG 1 EACH TAB PO PRN (09:41)
[2024-01-24] MEDS: oxyCODONE-APAP 7.5-325MG 1 EACH TAB PO SCH (14:27)
[2024-01-24] MEDS: CYCLOBENZAPRINE 5 MG TAB PO SCH (14:29)
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
[2024-01-25] MEDS: CYCLOBENZAPRINE 5 MG TAB PO SCH (00:21)
--- NOTE | 2024-01-25 06:34 | P.PN ---
Subjective Progress Note Date: 01/25/24 Principal diagnosis: 1. Grade I spondylolisthesis of L5 on S1 with spondylosis and stenosis 2. Bilateral foraminal stenosis 3. Bilateral lower extremity radiculopathy, left worse than right Patient seen and examined this morning. Patient is resting in bed. He does report that his pain is better managed on current regimen. Patient is asking if he can go home later today, informed patient that we need to get him off of IV p ain medication and we will reassess later this afternoon. Patient verbalizes understanding. Surgical incisions to the bilateral lumbar spine are clean dry and intact, no shadowing noted. Patient reports resolution of numbness and tingling into the bilateral lower extremities since procedure. Continue to encourage patient to work with physical therapy and staff to increase activity. Objective - Vital Signs Vital signs: Vital Signs Temp 99.1 F 01/25/24 01:34 Pulse 99 01/25/24 01:34 Resp 18 01/25/24 01:34 BP 133/77 01/25/24 01:34 Pulse Ox 93 L 01/25/24 01:34 FiO2 21 01/24/24 09:41 Intake & Output 01/24/24 01/24/24 01/25/24 06:59 18:59 06:59 Output Total 2270 1000 Balance -2270 -1000 Output: Urine 2270 1000 Other: Voiding Method Urinal Urinal # Voids 5 3 - Exam Physical Examination General: The patient is awake and alert, in no acute distress Skin: Skin is warm and dry with no obvious rashes or lesions. Bilateral lumbar surgical incisions, dressings are clean dry and intact. No shadowing noted. Eye: Pupils are equal, round and reactive to light, extra-ocular movements are intact; there is normal conjunctiva bilaterally. Neck: The neck is supple, there is no tenderness and ROM intact. Cardiovascular: There is a regular rate and rhythm. No murmur, rub or gallop is appreciated. Respiratory: Lungs are clear to auscultation, respirations are non-labored, breath sounds are equal. Gastrointestinal: Soft, non-distended, non-tender abdomen. Back: There is no tenderness to palpation in the midline, paralumbar, parathoracic or buttocks region. There is no obvious deformity . Musculoskeletal: ROM limited secondary to pain and stiffness from surgical procedure. Muscle strength in all major muscle groups of bilateral upper extremities 5/5, bilateral lower extremities 4/5. Neurological: CN 2-12 intact. There are no obvious motor or sensory deficits. Movement and coordination equal and intact. Sensory exam to light touch intact C5-T1 and intact from L2-S1. Reflexes 2/4 in bilateral upper and lower extremities. Negative Hoffmans, babinski, and clonus signs. Psychiatric: Cooperative, appropriate mood & affect, normal judgment. - Labs CBC & Chem 7: 01/24/24 02:58 01/24/24 02:58 Assessment and Plan Assessment: Postop day 2: L5-S1 TLIF Plan: -Appreciate tax consultant and team management. -Activity: Ambulate QID, OOB all meals, up and about, limit lifting bending twi sting to less than 5 lbs. Use walker or cane if needed for stability. -Daily PT/OT, increase ambulation strength and balance. -Brace when up and about, not needed in bed or chair -Pain control: Medications have been adjusted -Meds: reviewed -GI ppx: senna, Miralax -DVT PPX: Heparin, TEDS, SCDs -Hygiene: Maintain dressing clean and dry. Meticulous cleaning after BMs away from the incision site -Encourage IS 10x/hr -Dispo: Anticipate discharge home with home care later today. *I reviewed and discussed this case with my attending Dr. Bob, whom has reviewed this chart and films and is in agreement with assessment and plan of care as outlined above. I have personally seen and examined the patient, performed the documentation and the assessment and plan as written. Number of minutes spent on the visit: 20m.
[2024-01-25] MEDS: GABAPENTIN 300 MG CAP PO SCH (08:54)
[2024-01-25 10:26] LABS: HCT 41.3 % (39.6-50.0); HGB 13.5 g/dL (13.0-17.0); MCH 29.3 pg (27.0-32.0); MCHC 32.7 g/dL (32.0-37.0); MCV 89.6 FL (80.0-97.0); Mean Platelet Volume 9.7 FL (9.5-12.2); NRBC Per 100 WBC 0 X 10*3/uL (0.00-0.01); Platelet Count 347 X 10*3/uL (140-440); RBC 4.61 X 10*6/uL (4.40-5.60); RDW 15.3 % (11.5-14.5)
[2024-01-25 10:42] LABS: BUN/Creat Ratio 10.22 Ratio (12.00-20.00); Blood Urea Nitrogen 9.2 mg/dL (9.0-27.0); Calcium 8.5 mg/dL (8.7-10.3); Chloride 102 mmol/L (96-109); Glucose 114 mg/dL (70-110); Magnesium 1.7 mg/dL (1.5-2.4); Potassium 3.6 mmol/L (3.5-5.5); Sodium 137 mmol/L (135-145)
[2024-01-25] MEDS: CYCLOBENZAPRINE 10 MG TAB PO SCH (13:07)
[2024-01-25] MEDS: oxyCODONE-APAP 10-325MG 1 EACH TAB PO SCH (13:07)
[2024-01-25] MEDS: DEXAMETHASONE SOD PHOSPHATE 10 MG/ML 1 ML VIAL IVP STA (13:42)
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
[2024-01-25] MEDS: MAGNESIUM OXIDE 400 MG TAB PO STA (16:09)
[2024-01-25 19:58] VITALS: RESP 18
[2024-01-26] MEDS: CYCLOBENZAPRINE 10 MG TAB PO SCH (00:06)
[2024-01-26 01:59] VITALS: TEMP 98
[2024-01-26] MEDS ORDERED: diazePAM 5 MG TAB PO PRN (06:47)
[2024-01-26 07:20] VITALS: BP 124/83; PULSE 91
--- NOTE | 2024-01-26 09:26 | P.PN ---
Subjective Progress Note Date: 01/26/24 Principal diagnosis: 1. Grade I spondylolisthesis of L5 on S1 with spondylosis and stenosis 2. Bilateral foraminal stenosis 3. Bilateral lower extremity radiculopathy, left worse than right Patient seen and examined this morning. He is resting comfortably in bed. He reports significant relief of his RLE pain. He states he has been ambulating in hallway and tolerating well. Surgical incisions to the lumbar spine are clean, dry, and intact. He states his pain is managed on current regimen. Patient states he is looking forward to going home. LSO brace and walker remain at bedside. No acute concerns. Objective - Vital Signs Vital signs: Vital Signs Temp 98.0 F 01/26/24 01:04 Pulse 91 01/26/24 06:56 Resp 18 01/26/24 06:56 BP 124/83 01/26/24 06:56 Pulse Ox 98 01/26/24 06:56 FiO2 21 01/24/24 09:41 Intake & Output 01/25/24 01/26/24 01/26/24 18:59 06:59 18:59 Output Total 0 Balance 0 Output: Urine 0 Other: Voiding Method Toilet Urinal # Voids 2 2 - Exam Physical Examination General: The patient is awake and alert, in no acute distress Skin: Skin is warm and dry with no obvious rashes or lesions. Bilateral lumbar surgical incisions, dressings are clean dry and intact. No shadowing noted. Eye: Pupils are equal, round and reactive to light, extra-ocular movements are intact; there is normal conjunctiva bilaterally. Neck: The neck is supple, there is no tenderness and ROM intact. Cardiovascular: There is a regular rate and rhythm. No murmur, rub or gallop is appreciated. Respiratory: Lungs are clear to auscultation, respirations are non-labored, breath sounds are equal. Gastrointestinal: Soft, non-distended, non-tender abdomen. Back: There is no tenderness to palpation in the midline, paralumbar, parathoracic or buttocks region. There is no obvious deformity . Musculoskeletal: ROM limited secondary to pain and stiffness from surgical procedure. Muscle strength in all major muscle groups of bilateral upper extremities 5/5, bilateral lower extremities 4/5. Neurological: CN 2-12 intact. There are no obvious motor or sensory deficits. Movement and coordination equal and intact. Sensory exam to light touch intact C5-T1 and intact from L2-S1. Reflexes 2/4 in bilateral upper and lower extremities. Negative Hoffmans, babinski, and clonus signs. Psychiatric: Cooperative, appropriate mood & affect, normal judgment. - Labs CBC & Chem 7: 01/25/24 06:42 07 06:42 Labs: Abnormal Lab Results - Last 24 Hours (Table) 01/25/24 01/25/24 Range/Units 06:42 06:42 WBC 14.10 H (4.50-10.00) X 10*3/uL RDW 15.3 H (11.5-14.5) % BUN/Creatinine Ratio 10.22 L (12.00-20.00) Ratio Glucose 114 H (70-110) mg/dL Calcium 8.5 L (8.7-10.3) mg/dL Assessment and Plan Assessment: Postop day 3: L5-S1 TLIF Plan: -Appreciate senior health consultant and team management. -Activity: Ambulate QID, OOB all meals, up and about, limit lifting bending t wisting to less than 5 lbs. Use walker or cane if needed for stability. -Daily PT/OT, increase ambulation strength and balance. -Brace when up and about, not needed in bed or chair -Pain control: Medications have been adjusted -Meds: reviewed -GI ppx: senna, Miralax -DVT PPX: Heparin, TEDS, SCDs -Hygiene: Maintain dressing clean and dry. Meticulous cleaning after BMs away from the incision site -Encourage IS 10x/hr -Dispo: Discharge home with home care today *I reviewed and discussed this case with my attending Dr. Bob, whom has reviewed this chart and films and is in agreement with assessment and plan of care as outlined above. I have personally seen and examined the patient, performed the documentation and the assessment and plan as written. Number of minutes spent on the visit: 20m.
--- NOTE | 2024-01-26 09:27 | P.DS ---
Providers Date of admission: 01/24/24 12:59 Expected date of discharge: 01/26/24 Attending physician: Sacha Bob DO Consults: 01/23/24 10:25 Consult Physician Routine Consulting Provider: Noman Sierra Consult Reason/Comments: Medical Management Do you want consulting provider notified?: Yes Primary care physician: [facility] Course: Hospital Course: The patient was evaluated preoperatively and found to have the diagnosis of Lumbar spondylosis with stenosis. They underwent appropriate preoperative care and were willing to undergo the intended procedure. They underwent a successful L5-S1 TLIF, were recovered appropriately and sent to the floor. While on the floor they worked with physical therapy, occupational therapy and nursing to enhance their recovery experience. Their pain was well controlled through their stay and they were started on appropriate medications, DVT ppx modalities, activity and dietary needs. Daily labs were monitored closely, and transfusions were only used when necessary. Medicine as well as other consulting services have made their input and have helped with our team approach and multidisciplinary care. PT milestones have been met and passed and they have made the recommendation of home with homecare for this patient and treating providers agree with this care path. The patient will be discharged home with appropriate medications, instructions and follow-up information and in stable condition. Patient Condition at Discharge: Good Plan - Discharge Summary Discharge Rx Participant: No New Discharge Prescriptions: New Gabapentin 300 mg PO TID #90 cap cefaDROXiL [Duricef] 500 mg PO Q12HR #10 cap Cyclobenzaprine [Flexeril] 5 mg PO TID PRN #30 tablet PRN Reason: Muscle Spasm Sennosides/Docusate Sodium [Senna Plus 8.6-50 mg Tablet] 1 each PO DAILY PRN #20 tab PRN Reason: Constipation oxyCODONE-APAP 10-325MG [Percocet 10-325 mg] 1 tab PO Q4HR PRN #40 tab PRN Reason: Pain Continue Losartan [Cozaar] 50 mg PO QAM Escitalopram [Lexapro] 20 mg PO QAM Cholecalciferol [Vitamin D3 (25 Mcg = 1000 Iu)] 50 mcg PO DAILY Rosuvastatin Calcium 20 mg PO QAM tadalafiL [Cialis] 5 mg PO HS Lidocaine 5% Patch [Lidoderm 5% Patch] 1 patch TOPICAL DIRECTED PRN PRN Reason: BACK PAIN hydrALAZINE HCL [Apresoline] 25 mg PO BID amLODIPine [Norvasc] 10 mg PO QAM No Action Clopidogrel [Plavix] 75 mg PO DAILY Aspirin 81 mg PO DAILY Discharge Medication List Clopidogrel [Plavix] 75 mg PO DAILY 06/02/16 [History] Losartan [Cozaar] 50 mg PO QAM 02/13/17 [History] Escitalopram [Lexapro] 20 mg PO QAM 09/25/20 [History] Cholecalciferol [Vitamin D3 (25 Mcg = 1000 Iu)] 50 mcg PO DAILY 11/23/20 [History] hydrALAZINE HCL [Apresoline] 25 mg PO BID 11/23/20 [History] Rosuvastatin Calcium 20 mg PO QAM 10/21/22 [History] amLODIPine [Norvasc] 10 mg PO QAM 11/04/22 [History] Lidocaine 5% Patch [Lidoderm 5% Patch] 1 patch TOPICAL DIRECTED PRN 01/22/24 [History] tadalafiL [Cialis] 5 mg PO HS 01/22/24 [History] Aspirin 81 mg PO DAILY 01/23/24 [History] Cyclobenzaprine [Flexeril] 5 mg PO TID PRN #30 tablet 01/25/24 [Rx] Gabapentin 300 mg PO TID #90 cap 01/25/24 [Rx] Sennosides/Docusate Sodium [Senna Plus 8.6-50 mg Tablet] 1 each PO DAILY PRN #20 tab 01/25/24 [Rx] cefaDROXiL [Duricef] 500 mg PO Q12HR #10 cap 01/25/24 [Rx] oxyCODONE-APAP 10-325MG [Percocet 10-325 mg] 1 tab PO Q4HR PRN #40 tab 01/26/24 [Rx] Follow up Appointment(s)/Referral(s): Lynnette Loredo MD [Primary Care Provider] - 02/06/24 9:30 am Sacha Bob DO [Doctor of Osteopathic Medicine] - 02/07/24 3:30 pm Activity/Diet/Wound Care/Special Instructions: Spine Discharge and Recovery Instructions Date of Surgery: 01/23/2024 Diagnosis: Lumbar spondylosis with stenosis Procedure: L5-S1 TLIF Medications: See medication list All medication refills should be obtained through your primary care doctor or your clinic spine surgeon. Please discuss prescription refills at your follow up appointment. Do not call the hospital for medication refills. Activity: Encourage ambulation with assist of walker, Up and about 6-8x daily PT/OT daily work on balance, strength and mobility Up in chair with all meals Shower daily Brace: Use brace when up and about, do not wear in bed or shower Dressing: Leave your dressing in place for a total of 3 days post operatively. Then you may remove your dressing and leave open to air. Keep the area clean and if not able to keep area clean, then cover with sterile gauze and tape. Showering: You may shower 3 days after your procedure allowing soap and water to run over incision. Do not scrub. Do not soak. Blot dry. Follow up: Please confirm a follow up appointment with your surgeon 2 weeks post operatively. Please make an appointment to follow up with your PCP in 1-2 weeks after surgery for evaluation `3 phase, 3-week plan POST OP WEEKS 1-3 1. Lifting/carrying/pushing/pulling limited to less than 5 pounds. 2. Do not sit for longer than 15 minutes at one time. Get up and walk around. Prolonged sitting is NOT advised. If you lay down, see if you can tolerate laying down on you front (belly side) 3. Walk for periods of 15 minutes = 1 mile but no longer; do it multiple times times each day. 4. Ice your low back after activity. POST OP WEEKS 3-6 1. Lifting limited to less than 20 pounds. 2. Do not sit for longer than 30 minutes at a time. Frequently change positions. Use a sit-to stand workstation or take frequent breaks from sitting if you have returned to work. 3. Walk for 30 minutes each day. If possible, do these three or more times a day POST OP WEEKS 6+ At your 6-week appointment we will give you a physical therapy referral to focus on a core stabilization and strengthening program. You should also work on leg & buttock strengthening, hamstring & quadriceps stretching, and continue a low impact aerobic activity program such as swimming, walking, or riding a stationary bicycle. During the initial 6 weeks after your surgery, you are at the highest risk of re-injuring your spine. You should generally avoid BLTs (bending, lifting and twisting combination motions) and follow the above guidelines to reduce the chance of reinjury. You can anticipate post op appointments in our office at approximately 3 weeks and 6 weeks after your surgery. INCISION CARE: If your incision is not draining you do NOT need to cover it with a dressing. Keep your incision clean, dry and intact. In most cases, we apply skin glue, jhon or sutures to the incision at the time of surgery. This will be like a crust or have the appearance of a scab and will fall off in time on its own. The stitches or jhon need to be removed at 3 weeks post op appointment. You may begin to shower 3 days after surgery (this allows the glue to cuellar well). However, please avoid scrubbing the incision site or peeling off any of the skin glue. This will ensure optimal healing of your incision. Also, during this time avoid soaking the incision area in water - this includes swimming pools, hot tubs or baths. No ointments, lotions or oils on the incision until your surgeon allows. Leave jhon, sutures or glue in place. Neurological dysfunction that comes on suddenly can also be a sign of a stroke. Below some common symptoms of a stroke are listed: B - balance difficulty such as sudden onset walking or leaning to one side - NEW E - eye problem such as sudden double vision or trouble seeing on one side - NEW F - Facial weakness or numbness on one side - NEW A - Arm or leg weakness or numbness on one side - NEW S - Slurred speech or difficulty with word finding - NEW T - Time is BRAIN! Call 911 as soon as you recognize these symptoms Diet: Consume a regular diet rich in vegetables and lean protein such as chicken or fish. You should consume in a ratio of approximately 20% fats|40% carbohydrates|40%protein. Vegetables, sweet potatoes, brown rice or quinoa are examples of good carbohydrates. Chips, white bread, cookies and sweets/sugar are examples of bad carbohydrates. Limit your bad carbs, go wild with good carbs. "Life's Simple 7" Guidelines as per [place] [employer] These will help you reclaim your life after surgery and toolmaker helper in your recovery, keeping in mind your restrictions. (1) Get Active. Physical activity can help people lose weight, control high blood pressure and cholesterol, feel emotionally better, and sleep better. (2) Control Cholesterol. Avoid a diet high in saturated fat, trans fat, & cholesterol. Limit whole milk & cream, ice cream, butter, egg yolks, processed meats (like sausage and hot dogs), and fatty meats. Choose healthy foods that are low in saturated fat, trans fat and cholesterol which include: Fruits and vegetables, fiber rich grain products (like whole grain pasta and brown rice), lean meat such as chicken, fish, nuts, seeds, and legumes. (3) Eat Better. Eat small portions. Shop at the grocery with a list and do not stray from it. Tips for a healthy diet include: Limit sodium intake to less than 1500mg daily, avoid prepackaged, processed, and fast foods, choose a diet rich in fruits, vegetables, and whole grain, high fiber foods, and limit saturated & cholesterol in your diet. (4) Manage Blood Pressure. If you have high blood pressure, you should have a cuff at home so that you can check your blood pressure regularly. Be sure you have a good cuff. An arm one is generally better than a wrist one. Bring the cuff to a doctor's appointment to validate that the measurements that your cuff are taking are accurate. Take your blood pressure twice daily when you are sitting down and relaxing. Record the numbers in a log and bring this log with you to your doctors' appointments. (5) Lose Weight if your BMI is above 25. A healthy BMI is between 19-25. To calculate Your BMI, you may use a Standard BMI Calculator on the NIH BMI website: <www.nhlbi.nih.gov/guidelines/obesity/BMI/bmicalc.htm>. Weigh oneself daily. If you are overweight, set a goal to lose weight. A pound a week loss if needed is a good target. (6) Reduce Blood Sugar. Limit foods and liquids with "added sugars." (Added sugars include sucrose, fructose, glucose, maltose, dextrose, high fructose corn syrup, corn syrup, concentrated fruit juice and honey). (7) Stop Smoking. If you smoke, quitting smoking is one of the best things that you can do for your health. Smoking increases your risk of heart attack, stroke, and peripheral vascular disease, which is a build-up of plaque in your arteries. Please discard all the cigarettes and lighters in your house. Have a plan for what you will do when you have the urge to smoke. Direct and second- hand smoke shortens your life as well as the lives of your family, friends and others around you. For your health and the health of those around you, please consider quitting! Proper Bending Body Mechanics: Maintain a wide stance with one foot slightly in front of the other. Keep your back straight. Bend utilizing the strength in your hips and knees. Do not bend at the waist. Maintain the lifted object at your waist-level close to your body. Avoid lifting weight that causes immediately pain or pain anywhere in the body afterwards. Smoking/Nicotine If there was ever one thing that you could do to increase your overall health, decrease your risk of cardiovascular problems by about 39% the second you make the choice, it is to STOP SMOKING. Your body's most instant gratification is the second you stop smoking. We have all heard the studies, read the articles but it is true, smoking is extremely bad for your overall health, and moreover it is detrimental to your bone health. Nicotine, IN ANY FORM, kills bone cells, prevents your body from healing fractures, and significantly prolongs healing after surgery. In spine surgery specifically, it increases your risk of not healing your bones to create a fusion and increases your risk of having a revision surgery due to this up to 60%. I know it is hard. I know it feels impossible. But there are ways. Take control of your life. We are here to help you through it. And when you are ready, ask us and we can direct you to help if you desire. Use the START Plan to Quit Smoking (please visit the Helpguide.org website listed below for more information): S = Set a quit date. Choose a date within the next 2 weeks, so you have enough time to prepare without losing your motivation to quit. If you mainly smoke at work, quit on the weekend, so you have a few days to adjust to the change. T = Tell family, friends, and co-workers that you plan to quit. Let your friends and family in on your plan to quit smoking and tell them you need their support and encouragement to stop. Look for a quit anabela who wants to stop smoking as well. You can help each other get through the rough times. A = Anticipate and plan for the challenges you'll face while quitting. Most people who begin smoking again do so within the first 3 months. You can help yourself make it through by preparing ahead for common challenges, such as nicotine withdrawal and cigarette cravings. R = Remove cigarettes and other tobacco products from your home, car, and work. Throw away all your cigarettes (no emergency pack!), lighters, ashtrays, and matches. Wash your clothes and freshen up anything that smells like smoke. Shampoo your car, clean your drapes and carpet, and steam your furniture. T = Talk to your doctor about getting help to quit. Your doctor can prescribe medication to help with withdrawal and suggest other alternatives. If you can't see a doctor, you can get many products over the counter at your local pharmacy or grocery store, including the nicotine patch, nicotine lozenges, and nicotine gum. Resources for Quitting Smoking: <https://www.[place].gov/documents/[facility]/Quit_Tobacco_Resources_for_patients_313 480_7.pdf> Supplementation: Take recommended dosages of Vitamin D and Calcium to help fortify your bones and help them to heal. See your health maintenance packet for dosages and recommended levels. DVT/VTE prophylaxis: You will be given compression stockings from the hospital. Wear these daily for the first two weeks after surgery. You may take them off at night. You may be prescribed a medication to help thin your blood. Take this as directed. If you are not prescribed this medication, early and frequent ambulation has been shown to be the best prophylaxis to deep vein thrombosis and sequelae related to this event. Discharge Disposition: HOME WITH HOME HEALTH SERVICES
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
== END 2024-01-26 11:26 | disposition home health service (06) ==
LOC: OR 05:47 → 4SSUR 10:16 → OR 01-24 12:59
PROVIDERS: ADMIT Orthopaedic Surgery; ATTEND Orthopaedic Surgery
DX: M43.17 Spondylolisthesis, lumbosacral region (principal); M48.07 Spinal stenosis, lumbosacral region; M54.17 Radiculopathy, lumbosacral region; G89.18 Other acute postprocedural pain; I10 Essential (primary) hypertension; E78.5 Hyperlipidemia, unspecified; G40.909 Epilepsy, unspecified, not intractable, without status epilepticus; I69.354 Hemiplegia and hemiparesis following cerebral infarction affecting left non-dominant side; G43.909 Migraine, unspecified, not intractable, without status migrainosus; I83.93 Asymptomatic varicose veins of bilateral lower extremities; Z87.81 Personal history of (healed) traumatic fracture; F41.9 Anxiety disorder, unspecified; Z87.891 Personal history of nicotine dependence; Z80.6 Family history of leukemia; Z90.81 Acquired absence of spleen; Z79.82 Long term (current) use of aspirin; Z79.02 Long term (current) use of antithrombotics/antiplatelets; Z83.79 Family history of other diseases of the digestive system; Z88.6 Allergy status to analgesic agent; Z87.442 Personal history of urinary calculi
CPT/HCPCS: 22633; 22840; 63052; 22853; 94760 ×2; 97530 ×3; 97162; 97166; 64999; 80048 ×2; 83735; 85025; 85027; 72100; 72131; G0378 ×3; C1713 ×2; C1734; J2250; J3370; J0330; J1100 ×2; J2710; J0690 ×2; J2405; J2001; J3010; J1170 ×4; J2795; J2704; J2371; J0665; J1596

== ENCOUNTER → 2024-02-06 | Outpatient (CLI) | payer BC ==
--- NOTE | 2024-02-06 13:59 | XR ---
EXAMINATION TYPE: XR pelvis AP view DATE OF EXAM: 02/06/2024 CLINICAL HISTORY: pain TECHNIQUE: Single view the pelvis is submitted. FINDINGS: No evidence for fracture, dislocation or bony lesion. Joint spaces are well-preserved. S I joints appear symmetric. IMPRESSION: 1. No acute fracture or dislocation seen. ICD 10 NO FRACTURE, INITIAL EVALUATION
--- NOTE | 2024-02-06 14:31 | XR ---
EXAMINATION TYPE: XR lumbar spine 2 or 3V DATE OF EXAM: 02/06/2024 CLINICAL HISTORY: pain TECHNIQUE: Three views of the lumbar spine are submitted. COMPARISON: 09/28/2023 FINDINGS: There are 5 lumbar type vertebral bodies identified. The lumbar spine shows satisfactory alignment w ithout evidence of acute fracture or dislocation. Vertebral body heights are within normal limits. Changes of L4-5 fusion noted. Postoperative alignment within normal limits. Moderate to severe narrow ing L5-S1. Left-sided nephrolithiasis noted. IMPRESSION: No acute fracture or dislocation is seen in the lumbar spine. ICD 10 NO FRACTURE, INITIAL EVALUATION
== END | disposition home or self-care (01) ==
LOC: RADXRMAIN 13:22
PROVIDERS: ATTEND Orthopaedic Surgery
DX: M54.50 Low back pain, unspecified (principal); R10.2 Pelvic and perineal pain
CPT/HCPCS: 72100; 72170

== ENCOUNTER → 2024-04-30 | Outpatient (CLI) | payer BC ==
--- NOTE | 2024-04-30 18:17 | CTL ---
EXAMINATION TYPE: CT Low Dose Lung DATE OF EXAM: 04/30/2024 8:40 AM CLINICAL INDICATION: Male, 53 years old with history of Z12.2 SCREEN BR CANCER Z87.891 FORMER SMOKER; Lung CA screening , history of tobacco use. COMPARISON: None. TECHNIQUE: Multiple axial non-contrast scans were obtained from approximately the lung apices through the upper abdomen. Coronal and sagittal reformatted images were obtained. Low dose technique was uti lized. MIP were created on a separate workstation and submitted for review. CT DLP: 141.5 mGycm, Automated exposure control for dose reduction was used. CT Contrast: Contrast used: None Oral contrast used: None FINDINGS: ======== Lack of intravenous contrast and low dose technique limits the evaluation of the vascular and soft ti ssue structures. LUNGS: No evidence of pulmonary fibrosis. No evidence of focal consolidation, pneumothorax or pleural effusion. Centrilobular emphysema changes. Fat density on the medial aspect of the ribs is seen along the right pleura. Large osteophytes impresses upon the posterior aspect of the left lower lobe. Nodules: RUL: None. RML: None. RLL: None. NARINDER: None. LLL: None. AIRWAY: Patent and unremarkable. HEART: Size within normal limits. MEDIASTINUM: No gross evidence of adenopathy. VASCULATURE: No aortic aneurysm. MUSCULOSKELETAL: Mild disc degeneration changes are present throughout the thoracolumbar spine. SOFT TISSUES/LYMPH NODES: Unremarkable. LOWER NECK: No significant findings. UPPER ABDOMEN: Suspected splenosis in the left upper quadrant. IMPRESSION: 1. No clinically significant pulmonary nodules. 2. Mild emphysema. CT LUNG RAD AND CT CHEST RECOMMENDATION: Lung-Rad 1 Negative: Continue annual screening with LDCT in 12 months. S Modifier (other clinically significant findings): None Recommend smoking cessation (if current smoker), or continuation of smoking cessation (if prior smoke r). Annual screening for lung cancer with low-dose computed tomography is recommended in adults ages 55 to 77 years who have a 30 pack-year smoking history and currently smoke or have quit within the pa st 15 years. Screening should be discontinued once a person has not smoked for 15 years or develops a health problem that substantially limits life expectancy or the ability or willingness to have curat marti lung surgery. Lung rads 2021 [email or web address] [facility], , 04/30/2024 6:15 PM
== END | disposition home or self-care (01) ==
LOC: RADCTMAIN 08:21
PROVIDERS: ATTEND Family Medicine
CPT/HCPCS: 71271

== ENCOUNTER → 2025-01-01 | Outpatient (CLI) | payer BC ==
[2025-01-01 15:31] VITALS: BP 151/94; PULSE 83; RESP 16; TEMP 98
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
== END ==
LOC: 3 N SLEEP 15:20
PROVIDERS: ATTEND Internal Medicine
DX: G47.33 Obstructive sleep apnea (adult) (pediatric) (principal); G47.61 Periodic limb movement disorder; E66.9 Obesity, unspecified; I10 Essential (primary) hypertension; I48.91 Unspecified atrial fibrillation; Z86.73 Personal history of transient ischemic attack (TIA), and cerebral infarction without residual deficits; Z68.33 Body mass index [BMI] 33.0-33.9, adult; Z86.69 Personal history of other diseases of the nervous system and sense organs; Z87.442 Personal history of urinary calculi; Z98.890 Other specified postprocedural states; Z90.81 Acquired absence of spleen
CPT/HCPCS: 99211